=== PATIENT | female | born 1955 | race Caucasian/White ===

== ENCOUNTER 2016-09-01 12:46 | Emergency (ER) | payer SELFPAY ==
[2009-08-28 22:21] VITALS: BMI 28.5
[2016-09-01 14:23] LABS: BASOPHILS 0.5 % (0-2); EOSINOPHILS 3.4 % (0-7); HEMATOCRIT 41.7 % (36.0-48.0); HEMOGLOBIN 13.5 g/dL (12-16); IMMATURE GRANULOCYTES 0.2 % (0-5); LYMPHOCYTES 24.4 % (15-50); MCH 27.7 pg (26.0-34.0); MCHC 32.4 g/dL (31.0-37.0); MCV 85.5 fL (80.0-100.0); MEAN PLATELET VOLUME 11.5 fL (7.4-10.4); MONOCYTES 8.4 % (2-11); NEUTROPHILS 63.1 % (40-80); PLATELET COUNT 113 10x3/uL (130-400); RBC 4.88 10x6/uL (4.00-5.40); RDW 14.4 % (11.5-14.5); WBC 4.4 10x3/uL (4.8-10.8)
[2016-09-01 14:25] LABS: APPEARANCE CLEAR (CLEAR); BILIRUBIN NEGATIVE (NEGATIVE); COLOR YELLOW (YELLOW); GLUCOSE NEGATIVE (NEGATIVE); KETONE NEGATIVE (NEGATIVE); LEUKOCYTE ESTERASE NEGATIVE (NEGATIVE); NITRITE NEGATIVE (NEGATIVE); PROTEIN NEGATIVE (NEGATIVE); SPECIFIC GRAVITY 1.015 (1.005-1.020); UROBILINOGEN NORMAL (NORMAL)
[2016-09-01 14:46] LABS: ALBUMIN 3.3 g/dL (3.4-5.0); ANION GAP 12.3 mmol/L (8-16); BILIRUBIN - TOTAL 0.86 mg/dL (0.2-1.3); CALCIUM 8.8 mg/dL (8.5-10.1); CARBON DIOXIDE 26.2 mmol/L (21.0-32.0); POTASSIUM - SERUM 4.5 mmol/L (3.5-5.1); PROTEIN - SERUM 6.7 g/dL (6.4-8.2)
== END 2016-09-01 18:00 | disposition home or self-care (01) ==
LOC: D.ER 12:46
PROVIDERS: Emergency Medicine
DX: K59.00 Constipation, unspecified (principal); K21.9 Gastro-esophageal reflux disease without esophagitis; I10 Essential (primary) hypertension; F32.9 Major depressive disorder, single episode, unspecified; G47.00 Insomnia, unspecified; J44.9 Chronic obstructive pulmonary disease, unspecified

== ENCOUNTER 2017-04-16 10:15 | Day surgery (SDC) | payer MEDICAID ==
[~2017-04-16] VITALS: Ht 172.7 cm; Wt 121.8 kg
[2017-04-16 11:15] LABS: BASOPHILS 0.4 % (0-2); EOSINOPHILS 1.5 % (0-7); HEMATOCRIT 44.5 % (36.0-48.0); HEMOGLOBIN 15.3 g/dL (12-16); IMMATURE GRANULOCYTES 0.2 % (0-5); LYMPHOCYTES 19.8 % (15-50); MCH 28.6 pg (26.0-34.0); MCHC 34.4 g/dL (31.0-37.0); MCV 83.2 fL (80.0-100.0); MEAN PLATELET VOLUME 11.9 fL (7.4-10.4); MONOCYTES 10.5 % (2-11); NEUTROPHILS 67.6 % (40-80); PLATELET COUNT 104 10x3/uL (130-400); RBC 5.35 10x6/uL (4.00-5.40); RDW 14.1 % (11.5-14.5); WBC 4.7 10x3/uL (4.8-10.8)
[2017-04-16 11:24] LABS: APTT 31.6 SECONDS (22.8-39.4); INR 1.25 (0.85-1.17); PROTIME 15.3 SECONDS (11.6-15.0)
[2017-04-16 11:26] LABS: ALBUMIN 3.9 g/dL (3.4-5.0); ALKALINE PHOSPHATASE 83 U/L (46-116); ALT (SGPT) 26 U/L (10-68); BILIRUBIN - TOTAL 1.79 mg/dL (0.2-1.3); CALC OSMOLALITY 269 mosm/kg (275-300); CALCIUM 9.7 mg/dL (8.5-10.1); CARBON DIOXIDE 20.6 mmol/L (21.0-32.0); CHLORIDE - SERUM 102 mmol/L (98-107); CREATININE - SERUM 0.7 mg/dL (0.6-1.3); GLUCOSE 107 mg/dL (74-106); POTASSIUM - SERUM 4.4 mmol/L (3.5-5.1); PROTEIN - SERUM 7.5 g/dL (6.4-8.2); SODIUM 136 mmol/L (136-145); UREA NITROGEN 7 mg/dL (7-18); eGFR NON AFRICAN AMERICAN 90 mL/min (90-120)
[2017-04-16] MEDS ORDERED: METOPROLOL TART25 MG PO (11:50)
[2017-04-16] MEDS ORDERED: PRINIVIL20 MG PO (11:50)
[2017-04-16] MEDS ORDERED: ALDACTONE25 MG PO (11:50)
[2017-04-16] MEDS ORDERED: ATIVAN1 MG PO (11:50)
[2017-04-16] MEDS ORDERED: CELEXA10 MG PO (11:51)
[2017-04-16 11:56] VITALS: BP 128/80; Ht 172.7 cm; Wt 121.8 kg
--- NOTE | 2017-04-26 10:48 | OP ---
PATIENT NAME: ELIZABETH DENTON MEDICAL RECORD: [id number] :57 LOCATION:[facility] ADMISSION DATE: SURGEON: QING ADDISON DO DATE OF OPERATION: 04/16/2017 PROCEDURE: Colonoscopy with biopsy and polypectomy. INDICATIONS FOR PROCEDURE: Lower abdominal pain, diarrhea, and nausea. SCOPE: [employer] video pediatric colonoscope. MEDICATIONS: Propofol 500 mg IV per anesthesia. WITHDRAWAL TIME: 16 minutes. ESTIMATED BLOOD LOSS: Less than 3 mL. COMPLICATIONS: None. FINDINGS: Informed consent was given. The patient was made comfortable with the above medication. After reaching an adequate level of sedation by slow IV push, the patient was placed on her left side. A digital rectal examination was performed and was normal. The endoscope was then advanced under direct visualization through the rectum to the terminal ileum. The scope was slowly withdrawn and mucosa was carefully examined. The prep quality was good. The terminal ileum appeared normal, without evidence of inflammation or ulcerations. In the cecum, there were some hemorrhagic and friable mucosa. Appearances could be consistent with vascular ectasias or barotrauma. The patient does have known platelets and this could contribute to this appearance as well. Biopsies were taken with cold forceps of the site to submit for histopathology. In the transverse colon, there was a single benign appearing sessile polyp, which measured approximately 3-4 mm in diameter. It was removed using hot forceps in 1 piece and completely retrieved. In the rectum, there was another patch of friable and hemorrhagic appearing mucosa which was biopsied with cold forceps to submit for histopathology. There were a few scattered diverticula present throughout the entire colon. There was no evidence of diverticulitis. Random biopsies were taken throughout the colon and stool was collected to submit for infectious workup. The endoscope was retroflexed in the rectum with a normal appearing rectal wall. The endoscope was withdrawn from the patient. The patient tolerated the procedure well and there were no complications. IMPRESSION: 1. Patches of friable and hemorrhagic mucosa in both the cecum and rectum with biopsies pending. 2. Single benign appearing sessile polyp in the transverse colon which has been removed with hot forceps. 3. Mild diverticulosis involving the entire colon without evidence of diverticulitis. PLAN AND RECOMMENDATIONS: 1. Discharge home when recovery parameters are met. 2. Follow up biopsy specimen results and infectious workup. 3. High fiber diet. 4. Continue current medications. 5. Trial of dicyclomine 20 mg b.i.d. p.r.n. abdominal pain or loose stools. OPERATIVE REPORT [id number] ELIZABETH DENTON 6. Consider Viberzi if biopsies and infectious workup are negative, if the patient continues to experience diarrhea. 7. Recall colonoscopy in 5 years. TRANSINT:[id number] Voice Confirmation ID: [id number] DOCUMENT ID: [id number] QING ADDISON DO at 1048 CC: [id number] DICTATION DATE: 04/16/17 1334 PUBLIC RELATIONS: 04/16/17 1416 [facility] 04/16/17 [id number] [place] [address]
== END 2017-04-16 14:24 | disposition home or self-care (01) ==
LOC: D.OPS 10:15
PROVIDERS: Anesthesiology
DX: R19.7 Diarrhea, unspecified (principal); R10.9 Unspecified abdominal pain; D12.3 Benign neoplasm of transverse colon; I10 Essential (primary) hypertension; J44.9 Chronic obstructive pulmonary disease, unspecified; B19.20 Unspecified viral hepatitis C without hepatic coma; E66.01 Morbid (severe) obesity due to excess calories; Z68.41 Body mass index [BMI] 40.0-44.9, adult; Z01.812 Encounter for preprocedural laboratory examination

== ENCOUNTER 2018-03-06 07:17 | Day surgery (SDC) | payer MEDICAID ==
[~2018-03-06] VITALS: Ht 172.7 cm; Wt 122.7 kg
--- NOTE | ~2018-03-06 | OP ---
PATIENT NAME: ELIZABETH DENTON MEDICAL RECORD: [id number] :57 [facility] AD[facility]ION DATE: SURGEON: QING ADDISON DO DATE OF OPERATION: 03/06/2018 PROCEDURE: EGD with biopsies. INDICATIONS FOR PROCEDURE: GERD, nausea, generalized abdominal pain. SCOPE: [employer] video gastroscope. MEDICATIONS: Propofol 250 mg IV per anesthesia. ESTIMATED BLOOD LOSS: Minimal. COMPLICATIONS: None. FINDINGS: Informed consent was given. The patient was made comfortable with the above medication. After reaching an adequate level of sedation by slow IV push, the patient was placed on her left side. The endoscope was advanced under direct visualization through the mouth to the second portion of the duodenum. The upper, middle, and lower thirds of the esophagus appeared normal. At the GE junction, there was evidence of mild, LA class A reflux-induced esophagitis. The endoscope was advanced beyond the GE junction into the stomach and retroflexed to view the cardia, where a xmeni-wp-adrezb size sliding type hiatal hernia was present. There were no associated ulcers or other findings with this hernia. The endoscope was advanced throughout the body of the stomach and down to the antrum and prepyloric regions where there was some streaky erythema and granularity within the antrum and prepyloric areas. Random biopsies were taken to submit for histopathology and to rule out the presence of H. pylori. The endoscope was advanced into the duodenum. There was some villous flattening within the duodenal bulb, which did not appear out of the ordinary. Some biopsies were taken with cold forceps to submit for histology. The first and second portion of the duodenum appeared normal. The endoscope was withdrawn from the patient. The patient tolerated the procedure well and there were no complications. IMPRESSION: 1. LA class A reflux-induced esophagitis. 2. Jvqet-rk-dgqhxs size sliding hiatal hernia. 3. Erythema and granularity of the antrum and prepyloric region of the stomach consistent with possible gastritis. Biopsies pending. PLAN AND RECOMMENDATIONS: 1. Discharge home when recovery parameters are met. 2. GERD diet and reflux precautions. 3. Continue current medications including Nexium 40 mg every morning. 4. Add Pepcid 40 mg in the evening to regimen for better around the clock coverage including nighttime. 5. If this regimen is not controlling reflux and the patient continues to have nighttime symptoms, consider surgical repair of hiatal hernia. TRANSINT:[id number] Voice Confirmation ID: [id number] DOCUMENT ID: [id number] OPERATIVE REPORT [id number] ELIZABETH DENTON NATHAN A DO at 1403 CC: [id number] DICTATION DATE: 03/06/18 0850 [employer] HELPER: 03/06/18 1048 [facility] 03/06/[address] [address]
[~2018-03-06 07:17] MED LIST: ALDACTONE25 MG PO; ATIVAN1 MG PO; CELEXA10 MG PO; METOPROLOL TART25 MG PO; PRINIVIL20 MG PO
[2018-03-06 07:51] LABS: HEMATOCRIT 39.7 % (36.0-48.0); HEMOGLOBIN 13.4 g/dL (12-16); MCH 29.2 pg (26.0-34.0); MCHC 33.8 g/dL (31.0-37.0); MCV 86.5 fL (80.0-100.0); MEAN PLATELET VOLUME 10.4 fL (7.4-10.4); RBC 4.59 10x6/uL (4.00-5.40); RDW 13.9 % (11.5-14.5); WBC 3.9 10x3/uL (4.8-10.8)
[2018-03-06] MEDS ORDERED: NEXIUM20 MG PO (08:05)
[2018-03-06 08:08] VITALS: BP 178/64; Ht 172.7 cm; Wt 122.7 kg
== END 2018-03-06 10:17 | disposition home or self-care (01) ==
LOC: D.OPS 07:17
PROVIDERS: Anesthesiology
DX: K21.0 Gastro-esophageal reflux disease with esophagitis (principal); K44.9 Diaphragmatic hernia without obstruction or gangrene; K29.80 Duodenitis without bleeding; K29.50 Unspecified chronic gastritis without bleeding; Z01.812 Encounter for preprocedural laboratory examination

== ENCOUNTER → 2018-07-12 08:00 | Outpatient (CLI) | payer MEDICAID ==
[~2018-07-12 08:00] MED LIST changes: +NEXIUM20 MG PO
== END | disposition home or self-care (01) ==
LOC: D.MAMMO 08:00
PROVIDERS: ATTEND Family Medicine Adult Medicine
DX: Z12.31 Encounter for screening mammogram for malignant neoplasm of breast (principal)

== ENCOUNTER → 2018-08-16 22:06 | Outpatient (CLI) | payer MEDICAID | END | disposition home or self-care (01) | LOC: D.MAMMO 10:00 | PROVIDERS: ATTEND Family Medicine Adult Medicine | DX: N63.23 Unspecified lump in the left breast, lower outer quadrant (principal); N63.13 Unspecified lump in the right breast, lower outer quadrant ==

== ENCOUNTER 2019-05-26 13:09 | Inpatient (IN) | payer MEDICAID ==
[~2019-05-26] VITALS: Ht 175.3 cm; Wt 133.4 kg
[2019-05-26] MEDS ORDERED: SYMBICORT 80-10.2 GM INH (13:38)
--- NOTE | 2019-05-26 13:53 | NUR ---
ARRIVE TO ROOM VIA WHEELCHAIR FROM DOCTOR'S OFFICE ACCOMPANIED BY FAMILY. ALERT AND ORIENTED X4. AMBULATES TO BED WITH MINIMAL ASSISTANCE. VITALS STABLE. REFUSE SCDs. CONTINUE ADMISSION PROCESS AND SAFETY PRECAUTIONS.
[2019-05-26 14:35] VITALS: BP 128/78; BMI 43.5
[2019-05-26 15:38] LABS: BASOPHILS 0.2 % (0-2); EOSINOPHILS 2.1 % (0-7); HEMATOCRIT 29.6 % (36.0-48.0); HEMOGLOBIN 9.9 g/dL (12-16); IMMATURE GRANULOCYTES 0.2 % (0-5); LYMPHOCYTES 14.6 % (15-50); MCH 25.8 pg (26.0-34.0); MCHC 33.4 g/dL (31.0-37.0); MCV 77.3 fL (80.0-100.0); MEAN PLATELET VOLUME 9.8 fL (7.4-10.4); MONOCYTES 9.7 % (2-11); NEUTROPHILS 73.2 % (40-80); PLATELET COUNT 107 10x3/uL (130-400); RBC 3.83 10x6/uL (4.00-5.40); RDW 15.3 % (11.5-14.5); WBC 5.1 10x3/uL (4.8-10.8)
[2019-05-26 16:13] LABS: ALKALINE PHOSPHATASE 95 U/L (30-120); ALT (SGPT) 22 U/L (10-68); BILIRUBIN - TOTAL 1.18 mg/dL (0.2-1.3); CALC OSMOLALITY 237 mosm/kg (275-300); CALCIUM 7.9 mg/dL (8.5-10.1); CARBON DIOXIDE 22.2 mmol/L (21.0-32.0); CHLORIDE - SERUM 88 mmol/L (98-107); CHOL - HDL RATIO 1.4 ratio (2.3-4.1); CHOLESTEROL, TOTAL 101 mg/dL (0-200); CREATININE - SERUM 0.6 mg/dL (0.6-1.3); GLUCOSE 83 mg/dL (74-106); HDL CHOLESTEROL 72 mg/dL (32-96); LDL CHOLESTEROL 19 mg/dL (0-100); LDL-HDL RATIO 0.3 ratio (1.5-3.5); POTASSIUM - SERUM 4.2 mmol/L (3.5-5.1); PRO BNP 463 pg/mL (0-125); PROTEIN - SERUM 6.4 g/dL (6.4-8.2); THYROID STIMULATING HORMONE 1.76 uIU/mL (0.36-3.74); TRIGLYCERIDE 50 mg/dL (30-200); UREA NITROGEN 5 mg/dL (7-18); eGFR NON AFRICAN AMERICAN > 90 mL/min (90-120)
[2019-05-26 16:21] LABS: SODIUM 120 mmol/L (136-145)
[2019-05-26 16:51] VITALS: BP 128/78
--- NOTE | 2019-05-26 19:22 | NUR ---
AWAKE AND ALERT NEEDS SEEN TO LCTA BED LOW AND LOCKED RESP UNLABORED CALL LIGHT IS WITH PT
[2019-05-26 20:00] VITALS: BP 129/54
[2019-05-26 23:00] VITALS: BP 122/56
--- NOTE | 2019-05-27 01:48 | NUR ---
RT ARM OBVIOUSLY SWOLLEN IV INFILTRATED IV REMOVED CATH INTACT
[2019-05-27 04:30] VITALS: BP 129/58
[2019-05-27 06:40] LABS: BASOPHILS 0.2 % (0-2); EOSINOPHILS 1.4 % (0-7); HEMATOCRIT 30.3 % (36.0-48.0); HEMOGLOBIN 10.1 g/dL (12-16); IMMATURE GRANULOCYTES 0.5 % (0-5); LYMPHOCYTES 11.7 % (15-50); MCH 25.8 pg (26.0-34.0); MCHC 33.3 g/dL (31.0-37.0); MCV 77.3 fL (80.0-100.0); MEAN PLATELET VOLUME 10.6 fL (7.4-10.4); NEUTROPHILS 73.2 % (40-80); PLATELET COUNT 100 10x3/uL (130-400); RBC 3.92 10x6/uL (4.00-5.40); RDW 15.8 % (11.5-14.5); WBC 4.4 10x3/uL (4.8-10.8)
--- NOTE | 2019-05-27 06:52 | NUR ---
RESTARTED IV TO LEFT FA WITH 22 BLU
[2019-05-27 06:58] LABS: CALC OSMOLALITY 247 mosm/kg (275-300); CALCIUM 7.7 mg/dL (8.5-10.1); CHLORIDE - SERUM 91 mmol/L (98-107); CREATININE - SERUM 0.7 mg/dL (0.6-1.3); GLUCOSE 98 mg/dL (74-106); POTASSIUM - SERUM 4.6 mmol/L (3.5-5.1); SODIUM 124 mmol/L (136-145); UREA NITROGEN 6 mg/dL (7-18); eGFR NON AFRICAN AMERICAN 90 mL/min (90-120)
--- NOTE | 2019-05-27 07:20 | NUR ---
RECIEVE REPORT. ALERT AND ORIENTED X4. SITTING UP ON SIDE OF BED. IV INFUSING ORDERED. DENIES ANY NEEDS AT THIS TIME. CONTINUE PLAN OF CARE AND SAFETY PRECAUTIONS.
[2019-05-27 08:32] VITALS: BP 115/53
[2019-05-27 13:01] VITALS: BP 129/78
[2019-05-27 13:39] VITALS: Ht 175.3 cm; Wt 133.4 kg
--- NOTE | 2019-05-27 15:21 | NUR ---
TAKEN TO CTA VIA WHEELCHAIR.
[2019-05-27 16:53] VITALS: BP 137/65
--- NOTE | 2019-05-27 19:12 | NUR ---
PT AWAKE AND DENIES NEEDS AT THIS TIME BED LOW AND LOCKED PT HAS CALL LIGHT
[2019-05-27 19:27] LABS: UDS - AMPHET NEGATIVE QUAL (NEGATIVE); UDS - BARB NEGATIVE QUAL (NEGATIVE); UDS - BENZO NEGATIVE QUAL (NEGATIVE); UDS - COCAINE NEGATIVE QUAL (NEGATIVE); UDS - OPIATE NEGATIVE QUAL (NEGATIVE); UDS - PCP NEGATIVE QUAL (NEGATIVE); UDS - THC NEGATIVE QUAL (NEGATIVE)
--- NOTE | 2019-05-27 19:46 | NUR ---
PULSE OX 88 APPLIED 2LNC TO ACHEIVE 94%
[2019-05-27 20:00] VITALS: BP 124/50
[2019-05-28] VITALS: BP 119/64
--- NOTE | 2019-05-28 01:13 | NUR ---
I have reviewed this patient and I concur with the Shift Assessment completed by the Licensed Practical Nurse today this shift.
[2019-05-28 04:00] VITALS: BP 142/65
[2019-05-28 07:58] LABS: CALCIUM 7.7 mg/dL (8.5-10.1); CARBON DIOXIDE 23.6 mmol/L (21.0-32.0); CHLORIDE - SERUM 98 mmol/L (98-107); GLUCOSE 97 mg/dL (74-106); POTASSIUM - SERUM 5.1 mmol/L (3.5-5.1); SODIUM 129 mmol/L (136-145)
[2019-05-28 08:02] LABS: BASOPHILS 0.3 % (0-2); EOSINOPHILS 1.9 % (0-7); HEMATOCRIT 28.1 % (36.0-48.0); HEMOGLOBIN 9.1 g/dL (12-16); IMMATURE GRANULOCYTES 0.6 % (0-5); LYMPHOCYTES 18.8 % (15-50); MCH 25.9 pg (26.0-34.0); MCHC 32.4 g/dL (31.0-37.0); MEAN PLATELET VOLUME 10.4 fL (7.4-10.4); MONOCYTES 13.2 % (2-11); NEUTROPHILS 65.2 % (40-80); RBC 3.52 10x6/uL (4.00-5.40); RDW 16.3 % (11.5-14.5)
[2019-05-28 08:05] LABS: CALC OSMOLALITY 255 mosm/kg (275-300); CREATININE - SERUM 0.4 mg/dL (0.6-1.3); UREA NITROGEN 4 mg/dL (7-18); eGFR NON AFRICAN AMERICAN > 90 mL/min (90-120)
[2019-05-28 08:14] LABS: MCV 79.8 fL (80.0-100.0); PLATELET COUNT 68 10x3/uL (130-400); WBC 3.2 10x3/uL (4.8-10.8)
[2019-05-28 08:27] LABS: % SATURATION 7 % (15-55); IRON 27 ug/dl (35-150); TOTAL IRON BIND CAPACITY 373 ug/dl (260-445); UNSAT IRON BIND CAPACITY 346 ug/dl (150-375)
--- NOTE | 2019-05-28 08:47 | NUR ---
HOME O2 WALK TEST: AT REST PATIENT DROPPED TO 87%, PLACED ON 2L O2 AND PATIENT RECOVERED TO 94%. DID NOT WALK DUE TO PATIENT DROPPING BELOW THE LIMIT.
--- NOTE | 2019-05-28 09:30 | NUR ---
PT LYING IN BED WITH HOB ELEVATED. O2 AT 2.5L VIA NC. EYES CLOSED. CHEST RISING AND FALLING. BED LOW. CL IN REACH. WILL CONTINUE WITH PLAN OF CARE.
[2019-05-28 09:53] VITALS: BP 132/55
--- NOTE | 2019-05-28 11:23 | NUR ---
I have reviewed this patient and I concur with the Shift Assessment completed by the Licensed Practical Nurse today this shift.
[2019-05-28 11:33] LABS: PLATELET ESTIMATE DECREASED; ROULEAUX OCC
[2019-05-28 11:34] LABS: ANISOCYTOSIS OCC
--- NOTE | 2019-05-28 11:37 | NUR ---
Rehab Note- Acute Inpatient Rehab prescreen order received. The patient has [place] Private [employer] insurance and will require a PreAuth prior to an acute inpatient rehab stay. Need an OT Eval for the PreAUth process. Will continue to follow at this time. Thank you for this referral! Lois Palomino RN Clinical Liaison, [facility] Rehab
[2019-05-28] MEDS ORDERED: THERMOTABS 1 GM1 GM PO (13:08)
--- NOTE | 2019-05-28 13:15 | MORECARE ---
CASE MANAGEMENT DISCHARGE SUMMARY PATIENT: ELIZABETH DENTON UNIT: [id number] ADM DATE: 05/26/19 AGE: 64 : 57 SEX: F ROOM/BED: D.3422 AUTHOR: AURELIA,DOC PHYSICIAN: REFERRING PHYSICIAN: BELINDA GUEVARA MD DATE OF SERVICE: 05/28/19 Discharge Plan Patient Name: ELIZABETH EDNTON Facility: [facility]:[place] : 1955 Planned Disposition: Home with Home Health Anticipated Discharge Date: 05/28/19 Discharge Date: Expected LOS: 2 Initial Reviewer: [email or web address] Initial Review Date: 05/28/2019 Generated: 05/28/19 2:15 pm Comments DCP- Discharge Planning Updated by [email or web address]: Magdaleno Devi on 05/28/19 12:[address] Patient Name: ELIZABETH DENTON Admission Status: Elective Accout number: [id number] Admission Date: 05-26-2019 : 1955 Admission Diagnosis: Attending: BELINDA HITCHCOCK Current LOS: 2 Anticipated DC Date: 05-28-2019 Planned Disposition: Home with Home Health Primary Insurance: [facility] PRIVATE OPTIONS [facility] PLANNED EXTERNAL PROVIDER: [facility] Discharge Planning Comments: CM RECEIVED ORDER FOR INPATIENT REHAB PRESCEENING AND OXYGEN TESTING. CM RECEIVED OXYGEN TESTING, PT 87% ON ROOM AIR, 94% RECOVERY ON 2LNC OXYGEN. CM MET WITH PT IN ROOM TO DISCUSS DISCHARGE PLANNING AND NEEDS. PT REPORTS LIVING AT HOME INDEPENDENTLY WITH HER ADULT NIECE. PT HAS NO MEDICAL EQUIPMENT AND NO OUTSIDE SERVICES ASSISTING IN THE HOME. CM DISCUSSED AVAILABILITY OF HOME HEALTH, REHAB SERVICES AND MEDICAL EQUIPMENT. PT DENIES NEED OF REHAB SERVICES IN FACILITY, PT WILL ACCEPT HOME HEALTH WITH NO PROVIDER PREFERENCE. PT HAS NO PREFERENCE ON MEDICAL EQUIPMENT PROVIDER FOR OXYGEN. PT DENIES FURTHER NEEDS, REPORTS HER NIECE WILL PICK HER UP FOR DISCHARGE HOME. OXYGEN AND HOME HEALTH TO BE ARRANGED BY CM SHORTLY. Mechanical Development Engineer: Magdaleno Devi DCPIA - Discharge Planning Initial Assessment Updated by [email or web address]: Magdaleno Devi on 05/28/19 1:14 pm * Is the patient Alert and Oriented? Yes * How many steps to enter\exit or inside your home? * PCP DR GUEVARA * Pharmacy [facility] * Preadmission Environment Home with Family * ADLs Independent * Equipment None * Other Equipment NO MEDICAL EQUIPMENT PROVIDER PREFERENCE * List name and contact numbers for known caregivers / representatives who currently or will assist patient after discharge: CARLA FARIA, * Verbal permission to speak to the caregivers and representatives has been obtained from the patient. N/A * Community resources currently utilized None * Please name any agencies selected above. NONE * Additional services required to return to the preadmission environment? No * Can the patient safely return to the preadmission environment? Yes * Has this patient been hospitalized within the prior 30 days at any hospital? Yes External Providers External Provider: [facility] Next Contact Date: Service Request Date: Service Type: Resolution: Reviewer: Comments: External Provider: Manuel Next Contact Date: Service Request Date: Service Type: Resolution: Reviewer: Comments: Coverage Notice Reviewer: [email or web address] Leonel Devi Notice Issued Date-Time: 05/28/2019 10:02 Notice Type: Patient Choice Letter Notice Delivered To: Patient Relationship to Patient: Golf Cart Assembler Name: Delivery Method: HAND - Hand Delivered Vilma Days: Prior Verbal Notification: Recipient Understood Notice: Yes Recipient Signature: Yes Med Rec Note Co-signed by Attending: Coverage Notice Comment: NO MEDICAL EQUIPMENT PROVIDER PREFERENCE NO HOME HEALTH PROVIDER PREFERENCE Patient Name: ELIZABETH DENTON Page [phone] at 1315 All edits/amendments must be made on the electronic document DICTATION DATE: 05/28/19 1315 QUALITY CONTROL EXPERT: YORDY 05/28/19 1315 RPT#: [id number] DC DATE: STATUS: ADM IN [facility] [address] [place] [address] END OF REPORT
--- NOTE | 2019-05-28 15:24 | NUR ---
SPOKE WITH PTArina HORNE AND SHE STATES SHE WON'T BE ABLE TO PICK PT UP TILL 1700. I VERBALIZED UNDERSTANDING.
--- NOTE | 2019-05-28 17:06 | MORECARE ---
CASE MANAGEMENT DISCHARGE SUMMARY PATIENT: ELIZABETH DENTON UNIT: [id number] ADM DATE: 05/26/19 AGE: 64 : 57 SEX: F ROOM/BED: D.2102 AUTHOR: AURELIA,DOC PHYSICIAN: REFERRING PHYSICIAN: BELINDA GUEVARA MD DATE OF SERVICE: 05/28/19 Discharge Plan Patient Name: ELIZABETH DENTON Facility: [facility]:[place] : 1955 Planned Disposition: Home with Home Health Anticipated Discharge Date: 05/28/19 Discharge Date: Expected LOS: 2 Initial Reviewer: [email or web address] Initial Review Date: 05/28/2019 Generated: 05/28/19 6:05 pm Comments DCP- Discharge Planning Updated by [email or web address]: Amee Mario on 05/28/19 4:[address] CM met with patient to discuss H/H and oxygen therapy. . CM discussed availability of home health, rehab services, and medical equipment. Pt agreeable to [facility], and [facility]. Referrals made. Will continue to follow. Amee Mario MSN,RN CM DCP- Discharge Planning Updated by [email or web address]: Magdaleno Devi on 05/28/19 12:[address] Patient Name: ELIZABETH DENTON Admission Status: Elective Accout number: [id number] Admission Date: 05-26-2019 : 1955 Admission Diagnosis: Attending: BELINDA HITCHCOCK Current LOS: 2 Anticipated DC Date: 05-28-2019 Planned Disposition: Home with Home Health Primary Insurance: [place] PRIVATE OPTIONS [facility] PLANNED EXTERNAL PROVIDER: [employer] [facility] Discharge Planning Comments: CM RECEIVED ORDER FOR INPATIENT REHAB PRESCEENING AND OXYGEN TESTING. CM RECEIVED OXYGEN TESTING, PT 87% ON ROOM AIR, 94% RECOVERY ON 2LNC OXYGEN. CM MET WITH PT IN ROOM TO DISCUSS DISCHARGE PLANNING AND NEEDS. PT REPORTS LIVING AT HOME INDEPENDENTLY WITH HER ADULT NIECE. PT HAS NO MEDICAL EQUIPMENT AND NO OUTSIDE SERVICES ASSISTING IN THE HOME. CM DISCUSSED AVAILABILITY OF HOME HEALTH, REHAB SERVICES AND MEDICAL EQUIPMENT. PT DENIES NEED OF REHAB SERVICES IN FACILITY, PT WILL ACCEPT HOME HEALTH WITH NO PROVIDER PREFERENCE. PT HAS NO PREFERENCE ON MEDICAL EQUIPMENT PROVIDER FOR OXYGEN. PT DENIES FURTHER NEEDS, REPORTS HER NIECE WILL PICK HER UP FOR DISCHARGE HOME. OXYGEN AND HOME HEALTH TO BE ARRANGED BY CM SHORTLY. Char Filter Tank Tender Head: Magdaleno Devi DCPIA - Discharge Planning Initial Assessment Updated by [id number]: Magdaleno Devi on 05/28/19 1:14 pm * Is the patient Alert and Oriented? Yes * How many steps to enter\exit or inside your home? * PCP DR GUEVARA * Pharmacy [facility] * Preadmission Environment Home with Family * ADLs Independent * Equipment None * Other Equipment NO MEDICAL EQUIPMENT PROVIDER PREFERENCE * List name and contact numbers for known caregivers / representatives who currently or will assist patient after discharge: ERICK VELÁZQUEZ, CARLA, * Verbal permission to speak to the caregivers and representatives has been obtained from the patient. N/A * Community resources currently utilized None * Please name any agencies selected above. NONE * Additional services required to return to the preadmission environment? No * Can the patient safely return to the preadmission environment? Yes * Has this patient been hospitalized within the prior 30 days at any hospital? Yes Coverage Notice Reviewer: [id number] - Magdaleno Devi Notice Issued Date-Time: 05/28/2019 10:02 Notice Type: Patient Choice Letter Notice Delivered To: Patient Relationship to Patient: Account Technician Name: Delivery Method: HAND - Hand Delivered Vilma Days: Prior Verbal Notification: Recipient Understood Notice: Yes Recipient Signature: Yes Med Rec Note Co-signed by Attending: Coverage Notice Comment: NO MEDICAL EQUIPMENT PROVIDER PREFERENCE NO HOME HEALTH PROVIDER PREFERENCE Last DP export: 05/28/19 12:15 p Patient Name: ELIZABETH DENTON Page [phone] at 1706 All edits/amendments must be made on the electronic document DICTATION DATE: 05/28/19 170 PHARMACEUTICAL ENGINEER: YORDY 05/28/19 170 RPT#: [id number] DC DATE: STATUS: ADM IN [facility] [address] [place] [address] END OF REPORT
--- NOTE | 2019-05-28 18:27 | NUR ---
LEFT FA AND LEFT AC IV DC'D WITH CATH INTACT. DISCHARGE INSTRUCTIONS GIVEN TO PT AND PT'S DAUGHTER. NEITHER PT OR DAUGHTER HAD ANY FURTHER QUESTIONS. PT SIGNED CHART COPY. WILL GET WC TO TAKE PT DOWN.
--- NOTE | 2019-05-28 18:35 | NUR ---
PT TAKEN DOWN VIA WC AND LEFT WITH DAUGHTER IN PERSONAL CAR.
== END 2019-05-28 18:36 | disposition home or self-care (01) | DRG 189 ==
LOC: D.M2 13:09
PROVIDERS: Family Medicine; ADMIT Family Medicine Adult Medicine; ATTEND Family Medicine Adult Medicine
DX: J96.01 Acute respiratory failure with hypoxia (principal); Z68.41 Body mass index [BMI] 40.0-44.9, adult; E87.1 Hypo-osmolality and hyponatremia; N17.9 Acute kidney failure, unspecified; I10 Essential (primary) hypertension; E78.5 Hyperlipidemia, unspecified; J44.9 Chronic obstructive pulmonary disease, unspecified; F41.8 Other specified anxiety disorders; G40.909 Epilepsy, unspecified, not intractable, without status epilepticus; B19.20 Unspecified viral hepatitis C without hepatic coma; Z72.89 Other problems related to lifestyle; E66.01 Morbid (severe) obesity due to excess calories; D64.9 Anemia, unspecified

== ENCOUNTER 2019-08-28 16:23 | Inpatient (IN) | payer BC ==
[~2019-08-28] VITALS: Ht 175.3 cm; Wt 122.5 kg
[~2019-08-28 16:23] MED LIST changes: +SYMBICORT 80-10.2 GM INH; +THERMOTABS 1 GM1 GM PO
[2019-08-28] MEDS ORDERED: LASIX80 MG PO (17:04)
[2019-08-28] MEDS ORDERED: CHRONULAC30 ML PO (17:05)
[2019-08-28] MEDS ORDERED: PATOWN PO (17:11)
[2019-08-28] MEDS ORDERED: K-TAB10 MEQ PO (17:13)
[2019-08-28] MEDS ORDERED: ZOFRAN4 MG PO ×2 (17:14→17:15)
[2019-08-28] MEDS ORDERED: XIFAXAN550 MG PO (17:14)
[2019-08-28 17:52] VITALS: BP 112/68; BMI 39.9
--- NOTE | 2019-08-28 17:59 | NUR ---
PT RESTING IN BED WITH EYES OPEN CALL LIGHT IN REACH NO PROBLEMS WILL MONITERS
[2019-08-28 20:00] VITALS: BP 135/78
--- NOTE | 2019-08-28 20:40 | NUR ---
ASSESSMENT COMPLETED. SEE NURSING FLOW SHEET. ALERT AND ORIENTED. NO C/O VOICED. MEDS ADMINSITERED PER ORDERS WITHOUT DIFFICULTY. ASSISTED TO BATHROOM HOWEVER WAS INCONTINENT. ASSISTED BACK TO BED. SPRITE BROUGHT TO PATIEMT. CALL LIGHT WITHIN REACH AND AND BED IN LOW POSITION.
--- NOTE | 2019-08-28 21:38 | NUR ---
DR CALDERA NOTIFIED OF PT's BEHAVIOR AND ASSESSMENT RESULTS. PT IS A LOW RISK PER DR CALDERA. DR CALDERA STATED TO GIVE RESOURCES TO PATIENT AT TIME OF DISCHARGE. NO FURTHER ORDERS AT THIS TIME. RESOURCES REVIEWED WITH PT AND SHE VERBALIZED UNDERSTANDING.
--- NOTE | 2019-08-29 01:30 | NUR ---
PATIENT INCONTINENT OF URINE. GOWN AND PAD CHANGED. WAS INCONTINENT AGAIN BEFORE NURSE LEFT THE ROOM. CHANGED WITH TOP LINENS CHANGED.
--- NOTE | 2019-08-29 05:51 | NUR ---
AM MEDS ADMINISTERED WITHOUT DIFFICULTY. AMBULATED TO THE BATHROOM WITH ASSIST OF WALKER.
[2019-08-29 08:57] VITALS: BP 150/74
[2019-08-29 09:37] LABS: BASOPHILS 0.4 % (0-2); EOSINOPHILS 1.9 % (0-7); HEMATOCRIT 40.2 % (36.0-48.0); HEMOGLOBIN 12.3 g/dL (12-16); LYMPHOCYTES 28.4 % (15-50); MCH 26.5 pg (26.0-34.0); MCHC 30.6 g/dL (31.0-37.0); MCV 86.5 fL (80.0-100.0); MEAN PLATELET VOLUME 9.4 fL (7.4-10.4); MONOCYTES 16.3 % (2-11); PLATELET COUNT 71 10x3/uL (130-400); RBC 4.65 10x6/uL (4.00-5.40); RDW 16.1 % (11.5-14.5); WBC 4.9 10x3/uL (4.8-10.8)
[2019-08-29 10:20] LABS: ANION GAP 8.6 mmol/L (8-16); CARBON DIOXIDE 32.4 mmol/L (21.0-32.0); CREATININE - SERUM 0.9 mg/dL (0.6-1.3)
--- NOTE | 2019-08-29 11:48 | NUR ---
PT HAD AN INCONTIENT EPISODE OF URINE AT THIS TIME. PT C/O OF ITCHING AND BURNING TO GROIN AREA. REDNESS NOTED TO AREA. WILL OBTAIN ORDER FOR MEDICATION TO ASSIST WITH ITCHING.
[2019-08-29 13:44] VITALS: Ht 175.3 cm; Wt 122.5 kg
--- NOTE | 2019-08-29 14:05 | NUR ---
PATIENT ADMITTED TO REHAB FROM [facility] IN . DISCHARGE PLANS ARE FOR PATIENT TO RETURN HOME WITH FAMILY. WILL CONTINUE TO FOLLOW WITH PATIENT AND ASSIT WITH NEEDS.
--- NOTE | 2019-08-29 16:59 | NUR ---
N/O: ORDER PUT IN FOR CALMOSEPTINE OINTMENT. WILL ADMINISTER.
--- NOTE | 2019-08-29 19:59 | NUR ---
AWAKE AND ALERT. RESPIRATIONS UNLABORED ON O2/2L PER NASAL CANNULA. IN RESPIRATORY ISOLATION. PEG TUBE NOT IN USE. NO ACUTE DISTRESS NOTED. CALL LIGHT IN REACH.
[2019-08-29 20:04] VITALS: BP 107/58
--- NOTE | 2019-08-30 01:38 | NUR ---
RESTING IN BED. REQUESTED BLANKET. REPOSITIONED FOR COMFORT.
--- NOTE | 2019-08-30 05:18 | NUR ---
RESTING IN BED. NO BM'S THIS SHIFT. REMAINS IN DROPLET ISOLATION. NO ACUTE CHANGES IN CONDITION. O2/2L ON PER NASAL CANNULA. CALL LIGHT IN REACH.
--- NOTE | 2019-08-30 08:23 | NUR ---
PT EATING BREAKFAST IN THERAPY GYM TOLERATING WELL WILL MONITER
[2019-08-30 10:30] VITALS: BP 109/72
--- NOTE | 2019-08-30 11:00 | NUR ---
I have reviewed this patient and I concur with the Shift Assessment completed by the Licensed Practical Nurse today this shift.
--- NOTE | 2019-08-30 11:00 | NUR ---
I have reviewed this patient and I concur with the Shift Assessment completed by the Licensed Practical Nurse today this shift.
--- NOTE | 2019-08-30 17:53 | NUR ---
PT RESTING IN BED WITH EYES OPEN CALL LIGHT IN REACH WILL MONITER
--- NOTE | 2019-08-30 19:34 | NUR ---
AWAKE AND ALERT. SITTING ON SIDE OF BED. O2/2L ON PER NASAL CANNULA. NOTED SHORTNESS OF BREATH WITH EXERTION. HAD URGE INCONTINENCE EPISODE. GOWN AND BED LINENS CHANGED. CALL LIGHT IN REACH.
[2019-08-30 20:12] VITALS: BP 117/55
--- NOTE | 2019-08-31 01:44 | NUR ---
RESTING IN BED WITH RESPIRATIONS UNLABORED. NO DISTRESS NOTED. REMAINS IN DROPLET ISOLATION.
--- NOTE | 2019-08-31 06:22 | NUR ---
QUIET HOURS. NO ACUTE CHANGES IN CONDITION THIS SHIFT. REMAINS IN ISOLATION. CALL LIGHT IN REACH.
--- NOTE | 2019-08-31 07:23 | NUR ---
PT RESTING IN BED WITH EYES OPEN CALL LIGHT IN REACH WILL MONITER
[2019-08-31 08:11] VITALS: BP 103/61
--- NOTE | 2019-08-31 13:25 | NUR ---
I have reviewed this patient and I concur with the Shift Assessment completed by the Licensed Practical Nurse today this shift.
--- NOTE | 2019-08-31 18:25 | NUR ---
PT RESTING IN BED WITH EYES OPEN CALL LIGHT IN REACH NO PROBLEMS WILL MONITER
--- NOTE | 2019-08-31 19:39 | NUR ---
AWAKE AND ALERT. SITTING IN BED. O2/2L ON PER NASAL CANNULA. IN DROPLET ISOLATION . UP AD ELOY TO BATHROOM. CALL LIGHT IN REACH.
[2019-08-31 22:40] VITALS: BP 111/65
--- NOTE | 2019-09-01 05:19 | NUR ---
RESTING IN BED. QUIET HOURS. NO ACUTE CHANGES IN CONDITION THIS SHIFT. REMAINS IN DROPLET ISOLATION.
[2019-09-01 06:43] LABS: BASOPHILS 0.4 % (0-2); EOSINOPHILS 1.3 % (0-7); HEMATOCRIT 34.5 % (36.0-48.0); HEMOGLOBIN 10.4 g/dL (12-16); LYMPHOCYTES 29.8 % (15-50); MCH 25.7 pg (26.0-34.0); MCHC 30.1 g/dL (31.0-37.0); MCV 85.4 fL (80.0-100.0); MEAN PLATELET VOLUME 10.3 fL (7.4-10.4); MONOCYTES 11.7 % (2-11); NEUTROPHILS 56.8 % (40-80); PLATELET COUNT 81 10x3/uL (130-400); RBC 4.04 10x6/uL (4.00-5.40); RDW 15.9 % (11.5-14.5); WBC 4.6 10x3/uL (4.8-10.8)
[2019-09-01 07:00] LABS: ALBUMIN 2.3 g/dL (3.4-5.0); ALKALINE PHOSPHATASE 62 U/L (30-120); ALT (SGPT) 12 U/L (10-68); BILIRUBIN - TOTAL 1.43 mg/dL (0.2-1.3); CALC OSMOLALITY 270 mosm/kg (275-300); CALCIUM 8.2 mg/dL (8.5-10.1); CARBON DIOXIDE 32.8 mmol/L (21.0-32.0); CHLORIDE - SERUM 99 mmol/L (98-107); CREATININE - SERUM 0.7 mg/dL (0.6-1.3); GLUCOSE 92 mg/dL (74-106); POTASSIUM - SERUM 3.5 mmol/L (3.5-5.1); PROTEIN - SERUM 7.2 g/dL (6.4-8.2); SODIUM 136 mmol/L (136-145); UREA NITROGEN 9 mg/dL (7-18); eGFR NON AFRICAN AMERICAN 90 mL/min (90-120)
--- NOTE | 2019-09-01 07:00 | NUR ---
POSITIONED ON BACK WITH EYES CLOSED AND RESP EVEN AND UNLABORED WITH O2 ON PER NC AT 2 L/M. NO APPARENT PROBLEMS NOTED AT PRESENT TIME. SIDERAILS UP X 2, CALL LIGHT IN REACH AND BED IN LOW, LOCKED POSITION.
[2019-09-01 08:24] VITALS: BP 127/70
[2019-09-01 12:32] LABS: PLATELET ESTIMATE DECREASED
[2019-09-01 12:33] LABS: ANISOCYTOSIS OCC; HYPOCHROMASIA OCC
--- NOTE | 2019-09-01 17:45 | NUR ---
ASSISTED UP TO BATHROOM. LARGE LIQUID STOOL, PT CLEANED AND GOWNS CHANGED. CATARINA APPLIED TO EXCORIATED AREAS.
[2019-09-01 19:20] VITALS: BP 132/71
--- NOTE | 2019-09-01 21:33 | NUR ---
PT ASSISTED TO THE BATHROOM WITH SBA. NO FURTHER NEEDS VOICED.
--- NOTE | 2019-09-01 23:44 | NUR ---
I have reviewed this patient and I concur with the Shift Assessment completed by the Licensed Practical Nurse today this shift.
--- NOTE | 2019-09-02 03:29 | NUR ---
RESTING QUIETLY IN BED WITH EYES CLOSED.
--- NOTE | 2019-09-02 07:21 | NUR ---
POSITIONED ON BACK WITH EYES CLOSED, RESP EVEN AND UNLABORED WITH 02 ON PER N/C AT 2 L/M. NO APPARENT PROBLEMS NOTED. BED IN LOW, LOCKED POSITION, CALL LIGHT IN REACH AND SIDERAILS UP X 2. PT HAS SIGNED WAIVER FOR ALARM AND IS UP AD ELOY TO BATHROOM.
[2019-09-02 08:23] VITALS: BP 126/72
--- NOTE | 2019-09-02 18:52 | NUR ---
BEDSIDE REPORT COMPLETE. PT LYING IN BED. HOB ELEVATED. ALERT AND ORIENTED X4. DENIES ANY NEEDS OR PAIN. BED ALARM WAIVER ON FILE. PEG TUBE SITE WITHOUT REDNESS OR SWELLING. DRESSING C/D/I. CONTINUES ON 2L VIA NC. CONTACT ISOLATION PROTOCOLS IN PLACE. CALL LIGHT WITHIN REACH. FALL PRECAUTIONS IN PLACE. CPOC
[2019-09-02 21:00] VITALS: BP 115/64
--- NOTE | 2019-09-03 00:33 | NUR ---
PT LYING IN BED ON RIGHT SIDE EYES CLOSED RESTING. RR EVEN AND UNLABORED. CONTINUES ON 2L VIA NC. CALL LIGHT WITHIN REACH. FALL PRECAUTIONS IN PLACE. WILL CONTINUE TO MONITOR
--- NOTE | 2019-09-03 04:01 | NUR ---
PT LYING IN BED SUPINE EYES CLOSED RESTING COMFORTABLY. RR EVEN AND UNLABORED. CALL LIGHT WITHIN REACH. FALL PRECAUTIONS IN PLACE. CPOC
--- NOTE | 2019-09-03 07:34 | NUR ---
PT RESTING IN BED WIHT EYES OPEN CALL LIGHT IN REACH WILL MONITER
[2019-09-03 08:00] VITALS: BP 140/70
[2019-09-03 08:18] LABS: BASOPHILS 0.4 % (0-2); EOSINOPHILS 1.9 % (0-7); HEMATOCRIT 37.6 % (36.0-48.0); HEMOGLOBIN 11.4 g/dL (12-16); LYMPHOCYTES 32.8 % (15-50); MCHC 30.3 g/dL (31.0-37.0); MCV 85.8 fL (80.0-100.0); MEAN PLATELET VOLUME 9.7 fL (7.4-10.4); NEUTROPHILS 53.9 % (40-80); PLATELET COUNT 86 10x3/uL (130-400); RBC 4.38 10x6/uL (4.00-5.40); RDW 15.6 % (11.5-14.5); WBC 4.6 10x3/uL (4.8-10.8)
[2019-09-03 08:29] LABS: CALC OSMOLALITY 272 mosm/kg (275-300); CALCIUM 8.3 mg/dL (8.5-10.1); CARBON DIOXIDE 31.8 mmol/L (21.0-32.0); CHLORIDE - SERUM 100 mmol/L (98-107); CREATININE - SERUM 0.8 mg/dL (0.6-1.3); GLUCOSE 104 mg/dL (74-106); POTASSIUM - SERUM 3.2 mmol/L (3.5-5.1); SODIUM 137 mmol/L (136-145); UREA NITROGEN 9 mg/dL (7-18); eGFR NON AFRICAN AMERICAN 77 mL/min (90-120)
[2019-09-03 10:22] LABS: PLATELET ESTIMATE DECREASED; ROULEAUX OCC
[2019-09-03 10:23] LABS: HYPOCHROMASIA OCC
--- NOTE | 2019-09-03 15:02 | NUR ---
CARE TEAM MEETING: PATIENT DOING VERY WELL IN THERAPY AND DISCHARGE PLANS ARE FOR HER TO DC IN AM. WILL CONTINUE TO FOLLOW WITH PATIENT.
--- NOTE | 2019-09-03 18:39 | NUR ---
PT RESTING IN BED WITH EYES OPEN CALL LIGHT IN REACH NO PROBLEMS WILL MONITER
--- NOTE | 2019-09-03 19:19 | NUR ---
AWAKE AND ALERT. RESTING IN BED WITH RESPIRATIONS UNLABORED. IN DROPLET ISOLATION. NO ACUTE DISTRESS NOTED. CALL LIGHT IN REACH.
[2019-09-03 21:42] VITALS: BP 105/66
--- NOTE | 2019-09-04 00:23 | NUR ---
RESTING IN BED WITH RESPIRATIONS UNLABORED. NO DISTRESS NOTED. CALL LIGHT IN REACH.
--- NOTE | 2019-09-04 05:10 | NUR ---
QUIET HOURS. NO ACUTE CHANGES IN CONDITION THIS SHIFT. REMAINS IN DROPLET ISOLATION. RESTING IN BED WITH NO DISTRESS NOTED.
--- NOTE | 2019-09-04 07:15 | NUR ---
A/A/OX4. DENIES ANY PAIN OR DISCOMFORT AND VOICES NO REQUESTS. STATES SHE RESTED WELL LAST NIGHT AND IS EXCITED ABOUT BEING DISCHARGED TODAY. SIDERAILS UP X 2, CALL LIGHT IN REACH AND BED IN LOW, LOCKED POSITION. PT IS UP AD ELOY WITH HER WALKER AND HAS SIGNED NO ALARM WAIVER. WILL CONTINUE POC.
[2019-09-04 08:00] VITALS: BP 145/70
--- NOTE | 2019-09-04 08:47 | RHP ---
PATIENT: ELIZABETH DENTON MEDICAL RECORD: [id number] ACCOUNT: [id number] LOCATION:[id number] : 57 ADMISSION DATE: 08/28/19 REHABILITATION HISTORY AND PHYSICAL EXAMINATION POST ADMISSION PHYSICIAN EXAMINATION ADMITTING DIAGNOSIS: Encephalopathy. HISTORY OF PRESENT ILLNESS: The patient is admitted to the acute rehab with a nontraumatic injury such as metabolic encephalopathy. A 64-year-old morbidly obese female that presented to ED with shortness of breath, altered mental status. She was recently discharged from inpatient acute rehab for prolonged hospitalization after being in the LTAC for MRSA bacteremia and pneumonia. She had been doing well at home since then, but a few days prior to her acute hospital admit she developed increasing shortness of breath. She needed supplemental O2. She was given Lasix and lactulose in the ED. Her BNP was 1845. Ammonia level was 131. CT of her chest was negative for PE. She was admitted to ICU and placed on noninvasive mechanical ventilation due to worsening periods of apnea. She required a ventilator in May 2019 and had trach placed on 06/06/2019, was downsized to a cuffless trach and eventually decannulized after aggressive diuresis. She tested positive for MRSA in her sputum and continues on isolation. She has progressed well medically, has been participating in therapy. She has been receiving physical and occupational therapy throughout her stay. She needs to be monitored closely for possible seizure activity with history of ETOH use. She also has recent hypoglycemia. Monitoring her O2 sats. Her cognition has been somewhat low secondary to elevated ammonia level. She has got pain control, monitoring her input and output, electrolyte protocol, weakness, balance deficits and impaired mobility. She has got decreased quality of life, decreased range of motion, limited safety awareness. She has medical complexity for falls. She is requiring supplemental equipment to get around. She has got low endurance, unsteady gait and balance, fatigues easily and has inability to care for self. These are all barriers to her discharge home. She lives at home with her niece and niece's family. Was independent with ADLs and mobility with using a rolling walker prior to this. She is currently set up for mod assist for ADLs and mod assist for mobility. She and her family would like to get her back to her prior level of functioning or better and return her back to this living agreement. COMORBIDITIES: Include weakness, morbid obesity, acute hepatic encephalopathy, alcoholic liver cirrhosis, hepatitis C, [id number] thrombocytopenia, COPD, chronic respiratory failure, atrial fib, MRSA bacteremia and pneumonia, fluid overload, hypoglycemia, history of seizures. PAST MEDICAL HISTORY: Significant for anxiety, arthritis, CHF, depression, hep C, hypertension, MRSA, has got a history of seizure disorder, alcoholic cirrhosis, COPD. She has got chronic hypoxic and hypercapnic respiratory failure, AFib and tobacco use. PAST SURGICAL HISTORY: Includes shoulder surgery and PEG tube placement and also trach. ALLERGIES: PENICILLIN. CURRENT MEDICATIONS: Include Protonix 40 mg daily. She is on Xifaxan 550 b.i.d., potassium 40 mEq daily. She is on mineral oil p.r.n., metoprolol 25 mg HISTORY AND PHYSICAL [id number] ELIZABETH DENTONE b.i.d., lactulose 30 cc b.i.d., Zofran 4 mg every 4 hours p.r.n., furosemide 80 mg b.i.d., MiraLax 17 grams in 8 ounces of water daily. HABITS: Does have a history of alcohol use. FAMILY HISTORY: Noncontributory. SOCIAL HISTORY: The patient hopes to return back home and get back to her prior level of functioning. REVIEW OF SYSTEMS: GENERAL: Does complain of some weakness and fatigue. HEENT: Denies cold, cough, or congestion. CARDIOVASCULAR: Denies any chest pain. PHYSICAL EXAMINATION: VITAL SIGNS: Stable, afebrile. GENERAL: A well-developed, obese female in no acute distress upon exam. HEENT: Normocephalic and atraumatic. Mucosa moist. NECK: Supple with no lymphadenopathy. LUNGS: Clear at this time with no wheezing, rhonchi or rales. HEART: Irregular rate and rhythm. ABDOMEN: Soft, benign and nondistended. Positive bowel sounds times 4. EXTREMITIES: No clubbing, cyanosis or edema. NEUROLOGIC: She does have diffuse weakness in upper and lower extremities. ASSESSMENT: This is a 64-year-old female patient admitted to rehab with a working diagnosis of metabolic encephalopathy. The patient has potential for improvement and needs the following multiple disciplinary therapies including, but not limited to physical, occupational, respiratory, speech, nutritional services, prosthetics and orthotics. Given her complex medical condition and risk for more complications, rehabilitation services cannot be provided at a low level of care such as nursing home facility. PLAN: 1. Admit to [facility] for intensive inpatient therapy to include the following disciplines; A. Physical therapy to improve gait, all transfer skills and bed mobility to a modified independent level. B. Occupational therapy to improve activities of daily living. C. Case management to assist with discharge planning and placement options. D. Nutrition to assist with nutritional needs. E. Rehabilitation nursing to assist in monitoring the patient's underlying medical conditions and to assist with any type of bowel or bladder management. 2. The patient's current medication and medical care will be continued. 3. We are awaiting labs at this time. 4. We will adjust her lactulose levels, pending her ammonia levels. 5. We will see again in the a.m. TRANSINT:[id number] Voice Confirmation ID: [id number] DOCUMENT ID: [id number] MERT notes whether there has been none or any medical/functional change since admission: - No change since prescreen. HISTORY AND PHYSICAL [id number] ELIZABETH DENTON attests patient continues to be appropriate for IRF: - Continues to be appropraite. CRYSTAL CUELLAR MD at 0847 CC: [id number] DICTATION DATE: 08/29/19 0847 ENVIRONMENTAL TECHNICAL OFFICER: 08/29/19 1049 ADM IN [facility] [address] [place] [address]
--- NOTE | 2019-09-04 11:03 | NUR ---
PATIENT DISCHARGING HOME TODAY WITH FAMILY. [facility] WILL RESUME THERAPY AT HOME. NO NEW DME NEEDED AT THIS TIME. DR. GUEVARA 09/11/19 @ 2;15. YARA SIGNED AND IMM SERVED AND EXPLAINED. NO COMPARE DATA REVIEWED PER PATIENT REQUEST. DISCHARGE INSTRUCTIONS FAXED TO PCP, HOME HEALTH AND REVIEWED WITH PATIENT PER PRIMARY NURSE. DISCHARGE INSTRUCTIONS FAXED AN SPOKE WITH LORRAINE SON WITH [employer], AUTH. # [id number]
--- NOTE | 2019-09-04 15:00 | NUR ---
I have reviewed this patient and I concur with the Shift Assessment completed by the Licensed Practical Nurse today this shift.
--- NOTE | 2019-09-04 17:18 | NUR ---
DISCHARGE INSTRUCTIONS REVIEWED WITH PT AND VERBALIZES UNDERSTANDING. NO QUESTIONS. LEFT FLOOR VIA W/C WITH ALL PERSONAL BELONGINGS AND LEFT FACILITY VIA PRIVATE VEHICLE WITH HER NIECE.
== END 2019-09-04 17:19 | disposition home health service (06) | DRG 70 ==
LOC: D.REHAB 16:23
PROVIDERS: ADMIT Emergency Medicine; ATTEND Emergency Medicine
DX: G93.41 Metabolic encephalopathy (principal); K72.00 Acute and subacute hepatic failure without coma; J96.11 Chronic respiratory failure with hypoxia; E66.01 Morbid (severe) obesity due to excess calories; K70.30 Alcoholic cirrhosis of liver without ascites; B19.20 Unspecified viral hepatitis C without hepatic coma; D69.6 Thrombocytopenia, unspecified; I48.91 Unspecified atrial fibrillation; I50.9 Heart failure, unspecified; Z68.39 Body mass index [BMI] 39.0-39.9, adult; J44.9 Chronic obstructive pulmonary disease, unspecified; F41.8 Other specified anxiety disorders

== ENCOUNTER 2019-09-16 16:22 | Inpatient (IN) | payer MEDICAID ==
[~2019-09-16] VITALS: Ht 152.4 cm; Wt 130.1 kg
--- NOTE | ~2019-09-16 | HEMODYNAMI ---
PATIENT:ELIZABETH DENTON MEDICAL RECORD: [id number] : 57 [facility]# [id number] ADMISSION DATE: 09/16/19 Generatedon:09/25/201914:47 Patient name: ELIZABETH DENTON Patient #: [id number] SSN: [id number] : 1955 Date of study: 09/25/2019 Page: Of Hemodynamic Procedure Report Patient Data Patient Demographics Procedure consent was obtained First Name: ELIZABETH Gender: Female Last Name: CORRIE : 1955 [facility] Initial: LORENZA Age: 64 year(s) Patient #: [id number] Race: SSN: [id number] Additional ID: [id number] Contact details [address]: [address] [place] [address] State: [place] City: [place] Zip code: [address] Past Medical History Allergies Allergen Reaction Date Comments Reported Other allergy 09/25/2019 PCN Admission Admission Data Admission Date: 09/16/2019 Admission Time: 19:11 Arrival Date: 09/25/2019 Arrival Time: 0:00 Admit Source: Other Insurance Payor: Private Room #: [id number] health insurance [facility] #: [id number] Height (in.): 60 BSA: 2.17 (m2) Height (cm.): 152.4 BMI: 55.46 (kg/m2) Weight (lbs.): 283.96 Weight (kg.): 128.8 Lab Results Lab Result Date: 09/25/2019 Lab Result Time: 0:00 Biochemistry Name Units Result Min Max BUN mg/dl 15 --(--*-)-- 7 18 Creatinine mg/dl 0.7 --(*---)-- 0.6 1.3 eGFR ml/min 90 --(*---)-- 90 120 NONAFRICAN CBC Name Units Result Min Max Hematocrit % 32.9 *-(----)-- 42 54 Hemoglobin g/dl 10.3 *-(----)-- 13.5 17.5 Procedure Procedure Types Cath Procedure Diagnostic Procedure Cardioversion External ELSA Procedure Description Procedure Date Procedure Date: 09/25/2019 Procedure Start Time: 14:29 Procedure End Time: 14:46 Procedure Staff Name Function Jeramy Polo MD Performing Physician Juliet Harry RT Monitor Janet Root RT Scrub Trevor Samuels RN Nurse Edgard Cotter CRNA Additional personnel Saeid Gibson Image Editor Procedure Data Procedure Complications No complications Procedure Medications Medication Administration Route Dosage Oxygen etCO2 Nasal cannula 3 l/min Hurricaine Sinton P.O. 1 Sprays Refer to Anesthesia Notes for Sedation Medications Hemodynamics Rest BSA: 2.17 (m2) HGB: 10.3 (g/dl) O2 Consumption: Estimated: 221.44 (ml/min) O2 Consumption indexed: Estimated:102.05 (ml/min/m) Heart Rate: 91 (bpm) Snapshots Pre Cath Intra NCS Post Cath Vital Signs Time Heart Resp SPO2 etCO2 NIBP (mmHg) Rhythm Pain Sedation Rate (ipm) (%) (mmHg) Status Level (bpm) 14:20:55 92 18 98 0 155/92(107) A-Fib 0 (11) 10(A) , No pain 14:26:54 66 20 97 0 142/85(112) A-Fib 0 (11) 9(A) , No pain 14:40:16 64 24 94 0 119/72(0) NSR 0 (11) 10(A) , No pain 14:31:02 64 22 94 0 117/62(86) NSR 0 (11) 9(A) , No pain Medications Time Medication Route Dose Verified Delivered Reason Notes Effectiv eness by by 14:20:13 Oxygen etCO2 3 Edgard Murray used for Nasal l/min Cyndee Samuels RN procedure cannula SENIOR SECURITY ARCHITECT 14:20:23 Hurricaine P.O. 1 Edgard Murray Per Sinton Sprays Cyndee Samuels RN physician SENIOR SECURITY ARCHITECT 14:20:27 Refer to Edgard Murray Anesthesia Cyndee Samuels RN Notes for SENIOR SECURITY ARCHITECT Sedation Medications Procedure Log Time Note 13:49:24 Informed consent obtained and on chart 13:50:59 Janet Root RT(R) sent for patient. Start room use. 13:53:01 Diagnostic Cath Status : Elective 13:53:25 Arrival Date: 09/25/2019 12:00:00 AM 13:53:26 Admit Source: Other 13:53:48 Patient Height : 60 inches 13:53:52 Patient Weight : 283.96 lbs 13:53:55 Insurance Payor : Private health insurance 13:54:26 Patient allergic to Other allergyPCN 13:55:56 Procedure Status Cardioversion, ELSA. 13:56:17 Time tracking: Regular hours (M-F 7:00 - 5:00) 13:56:22 Plan of Care:Hemodynamics will remain stable., Cardiac rhythm will remain stable., Comfort level will be maintained., Respiratory function will remain adequate., Patient/ family verbilizes understanding of procedure., Procedure tolerated without complication., Recovers from procedure without complications.. 13:58:11 H&P Date Dictated: 09/25/2019 Within 30 days and on chart.. 13:58:12 Pre-procedure instructions explained to patient. 13:58:13 Pre-op teaching completed and patient verbalized understanding. 13:58:15 Family in patients room. 13:58:16 Patient NPO since Midnight. 13:58:45 Lab Result : BUN 15 mg/dl 13:58:45 Lab Result : Creatinine 0.7 mg/dl 13:58:45 Lab Result : Hemoglobin 10.3 g/dl 13:58:45 Lab Result : eGFR NONAFRICAN 90 ml/min 13:58:45 Lab Result : Hematocrit 32.9 % 13:58:51 Alarms reviewed by R. N. 13:58:51 Sharps counted by scrub and verified by R.N. 13:58:56 Stress Test: no; N/A ? 13:58:58 Lab results completed and on chart. 14:09:04 Patient received from Med II to CCL 1 Alert and oriented. Tansferred to table in Supine position. 14:09:05 Warm blankets applied, and celsa hugger turned on for patient comfort. 14:09:05 Correct patient and procedure confirmed by team. 14:09:06 ECG and BP/O2 sat monitors applied to patient. 14:14:44 Patient diabetic? No. 14:14:46 If diabetic: On Metformin? N/A 14:14:50 Patient not . Patient is over age 55. 14:15:25 Previous problem with sedation/anesthesia? Yes fighting when awakened 14:15:29 Snore? Yes 14:15:31 Sleep apnea? Yes 14:15:32 Deviated septum? No 14:15:34 Opens mouth fully? Yes 14:15:35 Sticks out tongue? Yes 14:15:39 Airway obstruction? Yes copd 14:15:43 Dentures? No ? 14:18:09 Edgard Cotter CRNA present and monitoring patient for TIVA. 14:19:16 --------ALL STOP TIME OUT------ 14:19:17 Final Timeout: patient, procedure, and site verified with staff and physician. All members of the team are in agreement. 14:19:22 Fire Safety Assessment: A--An alcohol-based skin anteseptic being used preoperatively., C--Open oxygen or nitrous oxide is being used., D--An ESU, laser, or fiber-optic light is being used. 14:19:45 Physical assessment completed. ASA score P 2 - A patient with mild systemic disease as per Jeramy Polo MD. 14:19:50 1) 90+ Normal kidney functon but urine findings or structural abnormalities or genetic trait point to kidney disease. 14:19:50 Vital chart was started 14:19:56 Rhythm: atrial flutter 14:19:57 Sedation plan: TIVA Medication:Propofol 14:19:58 Baseline sample Acquired. 14:20:13 Oxygen 3 l/min etCO2 Nasal cannula was administered by Trevor Samuels RN; used for procedure; Verbal order read back and verified. 14:20:23 Hurricaine Sinton 1 Sprays P.O. was administered by Trevor Samuels RN; Per physician; Verbal order read back and verified. 14:20:27 Refer to Anesthesia Notes for Sedation Medications was administered by Trevor Samuels RN; ; Verbal order read back and verified. 14:21:28 ELSA 14:21:31 Saeid Gibson Forensic Accountant present for ELSA. 14:21:45 ELSA started. 14::58 ELSA completed. 14:28:59 ------Cardioversion------ 14:29:00 Procedure started. 14:29:01 Full Disclosure recording started 14:29:02 Quick combo pads placed on patients chest and back. 14:29:10 Defibrillator synced and charged to 200 Joules. 14:29:12 Shock delivered. 14:30:21 Patient cardioverted to sinus rhythm . 14:30:27 Procedure ended.(Physican Out) 14:30:48 Post-procedure physical assessment completed. ASA score P 2 - A patient with mild systemic disease as per Jeramy Polo MD. 14:30:53 Post procedure rhythm: sinus rhythm 14:30:56 Post procedure instruction explained to patient.Patient verbalizes understanding. 14:30:57 Patient needs reinforcement of post procedure teaching. 14:33:53 Procedure and supply charges have been captured, reviewed, submitted and are correct. 14:33:57 Procedure Complication : No complications 14:34:12 ELSA Findings: ELSA w/ cardioversion: left atrial clot noted (will not proceed with cardioversion) 14:34:16 Operative report dictated upon procedure completion. 14:34:17 See physician's report for complete and final results. 14:34:19 Report given to Med II. 14:34:22 Patient transfered to Med II with Bed. 14:46:23 Vital chart was stopped 14:46:46 Procedure ended. 14:46:46 Full Disclosure recording stopped 14:46:58 End room use (Document Last) 14:47:34 End room use (Document Last) Signature Audit [place] Stage Time Signature Unsigned Intra-Procedure 09/25/2019 Juliet Harry 2:47:10 PM RT(R) Intra-Procedure 09/25/2019 Janet Root 2:47:17 PM RT(R) Intra-Procedure 09/25/2019 Trevor Samuels RN 2:47:35 PM Intra-Procedure 09/25/2019 Jeramy Cedeno 2:47:55 PM Donovan [id number] [place] [address]
[~2019-09-16 16:22] MED LIST changes: +CHRONULAC30 ML PO; +K-TAB10 MEQ PO; +LASIX80 MG PO; +PATOWN PO; +XIFAXAN550 MG PO; +ZOFRAN4 MG PO
[2019-09-16 18:02] LABS: CALC OSMOLALITY 264 mosm/kg (275-300); CALCIUM 7.9 mg/dL (8.5-10.1); CARBON DIOXIDE 30.3 mmol/L (21.0-32.0); CHLORIDE - SERUM 100 mmol/L (98-107); CREATININE - SERUM 0.8 mg/dL (0.6-1.3); GLUCOSE 97 mg/dL (74-106); POTASSIUM - SERUM 3.3 mmol/L (3.5-5.1); SODIUM 134 mmol/L (136-145); UREA NITROGEN 5 mg/dL (7-18); eGFR NON AFRICAN AMERICAN 77 mL/min (90-120)
[2019-09-16 18:04] LABS: BASOPHILS 0 % (0-2); EOSINOPHILS 1.8 % (0-7); HEMATOCRIT 31.2 % (36.0-48.0); HEMOGLOBIN 9.4 g/dL (12-16); IMMATURE GRANULOCYTES 0.7 % (0-5); LYMPHOCYTES 23.3 % (15-50); MCH 26.3 pg (26.0-34.0); MCHC 30.1 g/dL (31.0-37.0); MCV 87.4 fL (80.0-100.0); MEAN PLATELET VOLUME 9.5 fL (7.4-10.4); MONOCYTES 17.7 % (2-11); NEUTROPHILS 56.5 % (40-80); PLATELET COUNT 60 10x3/uL (130-400); RBC 3.57 10x6/uL (4.00-5.40); RDW 16.2 % (11.5-14.5); WBC 2.8 10x3/uL (4.8-10.8)
[2019-09-16 18:08] LABS: APTT 36.4 SECONDS (22.8-39.4)
[2019-09-16 18:21] LABS: ALBUMIN 2.4 g/dL (3.4-5.0); ALKALINE PHOSPHATASE 79 U/L (30-120); ALT (SGPT) 14 U/L (10-68); CKMB 2.6 U/L (0.0-3.6); CREATINE KINASE 96 UL (21-215); PRO BNP 2297 pg/mL (0-125); PROTEIN - SERUM 7.5 g/dL (6.4-8.2)
[2019-09-16 18:22] LABS: TROPONIN-I < 0.017 ng/mL (0.000-0.060)
[2019-09-16 18:30] VITALS: BP 122/93
[2019-09-16 18:35] LABS: INR 1.44 (0.85-1.17); PROTIME 17.4 SECONDS (11.6-15.0)
[2019-09-16 18:39] LABS: PLATELET ESTIMATE DECREASED
--- NOTE | 2019-09-16 19:11 | NUR ---
BS REPORT TO MAXIMILIANO SANTACRUZ
--- NOTE | 2019-09-16 20:15 | NUR ---
PATIENT ARRIVED FROM ED. PATIENT IS PLEASANTLY CONFUSED. RESPIRATIONS ARE EVEN AND UNLABORED. PATIENT IS ON 3L NC. PATIENT HAS TREVINO CATHETER. PATIENT HAS FEEDING TUBE THAT IS ENCRUSTED WITH A HARD BROWN COLERED SUBSTANCE. PATIENT HAS SMALL BRUISES GENERALIZED ALL OVER BODY. CALL LIGHT WITHIN REACH. BED ALARM ON. WILL CPOC.
[2019-09-17] VITALS (21 sets, daily range): BP systolic 104–143; BP diastolic 63–109; BMI 54.6
[2019-09-17 01:41] LABS: CKMB 2.3 U/L (0.0-3.6); CREATINE KINASE 71 UL (21-215)
[2019-09-17 01:44] LABS: TROPONIN-I < 0.017 ng/mL (0.000-0.060)
--- NOTE | 2019-09-17 01:55 | NUR ---
Patient received from med II via stretcher responsive only to painful stimuli. Patient had labored breathing and auditory congestion noted. Clifford Lynn APN at bedside. RT here to set up bipap. Patient aroused and is oriented x3 communicates needs well. Shrestha intact with yellow urine noted. Peg tube inplace with airbolus auscultation. Peg tube does have dry green crusty exudate noted. Peg tube clean with wound cleanser and dressing applied. Patient connected to monitor and bipap. Call light within reach, bed in low position, and alarm on. Will continue to monitor. IV 24g noted in R thumb saline lock without redness or edema noted.
[2019-09-17 07:21] LABS: HEMATOCRIT 33.8 % (36.0-48.0); HEMOGLOBIN 9.9 g/dL (12-16); MCHC 29.3 g/dL (31.0-37.0); MCV 88.7 fL (80.0-100.0); MEAN PLATELET VOLUME 10.6 fL (7.4-10.4); RBC 3.81 10x6/uL (4.00-5.40); RDW 16.1 % (11.5-14.5)
[2019-09-17 07:29] LABS: PLATELET COUNT 47 10x3/uL (130-400); WBC 1.4 10x3/uL (4.8-10.8)
--- NOTE | 2019-09-17 07:30 | NUR ---
REPORT RECIEVED, SHIFT ASSESSMENT COMPLETE, PT IS LETHARGIC ON BIPAP, AROUSES TO VOICE, ALL PPP, VSS, WILL CON'T TO MONITOR
[2019-09-17 07:43] LABS: CALC OSMOLALITY 276 mosm/kg (275-300); CALCIUM 8.1 mg/dL (8.5-10.1); CARBON DIOXIDE 30.7 mmol/L (21.0-32.0); CHLORIDE - SERUM 104 mmol/L (98-107); CKMB 1.7 U/L (0.0-3.6); CREATINE KINASE 55 UL (21-215); CREATININE - SERUM 0.8 mg/dL (0.6-1.3); GLUCOSE 124 mg/dL (74-106); MAGNESIUM - SERUM 1.5 mg/dL (1.8-2.4); PHOSPHOROUS 4.7 mg/dL (2.5-4.9); SODIUM 139 mmol/L (136-145); TROPONIN-I < 0.017 ng/mL (0.000-0.060); UREA NITROGEN 6 mg/dL (7-18); eGFR NON AFRICAN AMERICAN 77 mL/min (90-120)
[2019-09-17 07:45] LABS: POTASSIUM - SERUM 3.9 mmol/L (3.5-5.1)
--- NOTE | 2019-09-17 09:00 | NUR ---
NO VISITORS AT THIS TIME, WILL CON'T TO MONITOR
[2019-09-17 11:00] LABS: ANISOCYTOSIS OCC; LYMPHOCYTES 14 % (15-50); MONOCYTES 4 % (2-11); NEUTROPHILS 82 % (40-80); PLATELET ESTIMATE DECREASED
--- NOTE | 2019-09-17 11:30 | NUR ---
DR. QUEZADA AT BEDSIDE, NEW ORDERS RECIEVED
--- NOTE | 2019-09-17 13:00 | NUR ---
UPDATE GIVEN TO FAMILY OVER PHONE, PASSWORD OBTAINED
[2019-09-17 13:59] LABS: HEMATOCRIT 31.2 % (36.0-48.0); HEMOGLOBIN 9.3 g/dL (12-16)
[2019-09-17 14:21] LABS: CKMB 1.4 U/L (0.0-3.6); CREATINE KINASE 37 UL (21-215)
[2019-09-17 14:23] LABS: TROPONIN-I < 0.017 ng/mL (0.000-0.060)
--- NOTE | 2019-09-17 15:16 | NUR ---
REASSESSMENT COMPLETE, NO CHANGES NOTED, WILL CON'T TO MONITOR
--- NOTE | 2019-09-17 16:06 | NUR ---
PT NOW ALERT AND ORIENTED, LG BM, COMPLETE BATH AND LINEN CHANGE
[2019-09-17 16:19] LABS: HEMATOCRIT 33.6 % (36.0-48.0); HEMOGLOBIN 10.3 g/dL (12-16)
[2019-09-17 17:02] LABS: BACTERIA FEW /hpf (NEGATIVE); BILIRUBIN NEGATIVE (NEGATIVE); EPITHELIAL CELLS OCC /hpf (0-5); KETONE NEGATIVE (NEGATIVE); NITRITE NEGATIVE (NEGATIVE); RED CELLS - URINE >50 /hpf (0-5); SPECIFIC GRAVITY 1.025 (1.005-1.020); UROBILINOGEN NORMAL (NORMAL); WHITE CELLS - URINE OCC /hpf (NEGATIVE)
[2019-09-17 17:03] LABS: GLUCOSE NEGATIVE (NEGATIVE)
[2019-09-17 17:15] LABS: UDS - AMPHET NEGATIVE QUAL (NEGATIVE); UDS - BARB NEGATIVE QUAL (NEGATIVE); UDS - BENZO NEGATIVE QUAL (NEGATIVE); UDS - COCAINE NEGATIVE QUAL (NEGATIVE); UDS - OPIATE NEGATIVE QUAL (NEGATIVE); UDS - PCP NEGATIVE QUAL (NEGATIVE); UDS - THC NEGATIVE QUAL (NEGATIVE)
--- NOTE | 2019-09-17 19:40 | NUR ---
PATIENT HAD INCONTINENT BM LIQUID YELLOW CONTENT WITH SMALL PARTICLES NOTED. PATIENT CLEANED AND LINEN CHANGED.
--- NOTE | 2019-09-17 21:10 | NUR ---
DR. HAIRSTON NOTIFIED THAT PATIENT EATS PO AND NOT VIA PEG TUBE. NEW ORDER RECEIVED THAT PATIENT MAY TAKE MEDS AND HAVE REGULAR DIET.
--- NOTE | 2019-09-17 21:30 | NUR ---
RESTARTED IV IN R SHOULDER AND R AC 22G CATH X4 STICKS WITH ASEPTIC TECHNIQUE USED. GOOD BLOOD RETURN NOTED WITHOUT REDNESS OR EDEMA NOTED.
--- NOTE | 2019-09-17 22:20 | NUR ---
GONZALO HAD INCONTINENT BM, CLEANED AND LINEN CHANGED. TREVINO CARE COMPLETE. CALL LIGHT WITHIN REACH, BED IN LOW POSITION.
--- NOTE | 2019-09-17 23:00 | NUR ---
REASSESSMENT COMPLETE NO CHANGES NOTED. CALL LIGHT WITHIN REACH, BED IN LOW POSITION.
[2019-09-18] VITALS (16 sets, daily range): BP systolic 95–140; BP diastolic 63–98; Ht 152.4 cm; Wt 130.1 kg
--- NOTE | 2019-09-18 01:00 | NUR ---
PAITENT SLEEPING WITH NO DISTRESS NOTED. CALL LIGHT WITHIN REACH, BED IN LOW POSITION, AND ALARM ON.
[2019-09-18 01:14] LABS: HEMOGLOBIN 9.8 g/dL (12-16)
--- NOTE | 2019-09-18 03:00 | NUR ---
REASSESSMENT COMPLETE NO CHANGES NOTED. CALL LIGHT WITHIN REACH, BED IN LOW POSITION, AND ALARM ON.
[2019-09-18 04:16] LABS: BASOPHILS 0 % (0-2); EOSINOPHILS 0 % (0-7); HEMATOCRIT 30.7 % (36.0-48.0); HEMOGLOBIN 9.1 g/dL (12-16); LYMPHOCYTES 8.2 % (15-50); MCH 25.9 pg (26.0-34.0); MCHC 29.6 g/dL (31.0-37.0); MCV 87.5 fL (80.0-100.0); MEAN PLATELET VOLUME 9.8 fL (7.4-10.4); MONOCYTES 9.4 % (2-11); NEUTROPHILS 82.4 % (40-80); RBC 3.51 10x6/uL (4.00-5.40); RDW 16.4 % (11.5-14.5)
[2019-09-18 04:24] LABS: INR 1.35 (0.85-1.17); PROTIME 16.5 SECONDS (11.6-15.0)
[2019-09-18 04:45] LABS: ANION GAP 5.8 mmol/L (8-16); BILIRUBIN - TOTAL 0.73 mg/dL (0.2-1.3); CALCIUM 8.4 mg/dL (8.5-10.1); CARBON DIOXIDE 29.7 mmol/L (21.0-32.0); POTASSIUM - SERUM 3.5 mmol/L (3.5-5.1); PROTEIN - SERUM 6.9 g/dL (6.4-8.2)
[2019-09-18 04:46] LABS: PHOSPHOROUS 1.5 mg/dL (2.5-4.9)
--- NOTE | 2019-09-18 05:00 | NUR ---
GONZALO IS COMPLAINING ABOUT SALINE LOCK BURNING NO REDNESS OR EDEMA IS NOTED AT THIS TIME. CALL LIGHT WITHIN REACH, BED IN LOW POSITION, AND ALARM IS ON. WILL CONTINUE TO MONITOR.
[2019-09-18 05:08] LABS: WBC 2.6 10x3/uL (4.8-10.8)
[2019-09-18 05:09] LABS: PLATELET COUNT 41 10x3/uL (130-400)
--- NOTE | 2019-09-18 07:16 | NUR ---
REPORT RECIEVED, SHIFT ASSESSMENT COMPLETE, PT IS ALERT AND ORIENTED, ON 2L NC WITH 97% O2 SAT, ALL PPP, VSS, CALL LIGHT IN REACH
--- NOTE | 2019-09-18 09:00 | NUR ---
RIGHT FA PIV INFILTRATED, DC'D WITH CATH INTACT,
--- NOTE | 2019-09-18 09:30 | NUR ---
APS AT BEDSIDE, SPOKE AT LENGTH WITH PT
--- NOTE | 2019-09-18 10:59 | NUR ---
NIECE CALLED AT THIS TIME, PT STATES "AMBIKA MY SISTER IS THE ONLY ONE I WANT INFORMATION GIVEN TO", NEW PASSWORD OBTAINED
--- NOTE | 2019-09-18 12:06 | MORECARE ---
CASE MANAGEMENT DISCHARGE SUMMARY PATIENT: ELIZABETH DENTON UNIT: [id number] ADM DATE: 09/16/19 AGE: 64 : 57 SEX: F ROOM/BED: D.2316 AUTHOR: AURELIA,DOC PHYSICIAN: REFERRING PHYSICIAN: JANNET HAIRSTON MD DATE OF SERVICE: 09/18/19 Discharge Plan Patient Name: ELIZABETH DENTON Facility: [facility]:[place] : 1955 Planned Disposition: Anticipated Discharge Date: Discharge Date: Expected LOS: Initial Reviewer: [email or web address] Initial Review Date: 09/18/2019 Generated: 09/18/19 1:06 pm Comments DCP- Discharge Planning Updated by [email or web address]: Ele Grimes on 09/18/19 11:[address] Patient Name: ELIZABETH DENTON Admission Status: ER Accout number: [id number] Admission Date: 09-16-2019 : 1955 Admission Diagnosis:ACUTE AND CHRONIC RESPIRATORY FAILURE WITH HYPERCAPNIA Attending: JANNET HAIRSTON Current LOS: 2 Anticipated DC Date: Planned Disposition: Primary Insurance: [place] [employer] [place] Discharge Planning Comments: CM MET WITH PATIENT ABOUT DC PLANNING/NEEDS. SHE STATES SHE WILL NEED REHAB BEFORE GOING HOME. YARA SIGNED FOR [facility]. I TALKED WITH HER ABOUT SNF FACILITIES BUT SHE IS NOT WANTING TO DISCUSS THAT AT THIS TIME. PATIENT WILL POSSIBLY BE TRANSFERED TO THE FLOOR TODAY. CM WILL FOLLOW AND ASSIST NEEDED. Clinical Nurse Educator: Ele Grimes DCPIA - Discharge Planning Initial Assessment Updated by [id number]: Ele Grimes on 09/18/19 12:00 pm * Is the patient Alert and Oriented? Yes * PCP [facility] * [facility] * Preadmission Environment Home with Family * List name and contact numbers for known caregivers / representatives who currently or will assist patient after discharge: AMBIKA TREVINO * Community resources currently utilized Home Health * Please name any agencies selected above. [facility] * Additional services required to return to the preadmission environment? Yes * Can the patient safely return to the preadmission environment? No * Has this patient been hospitalized within the prior 30 days at any hospital? Yes Coverage Notice Reviewer: [id number] - Ele Grimes Notice Issued Date-Time: 09/18/2019 12:02 Notice Type: Patient Choice Letter Notice Delivered To: Patient Relationship to Patient: Service Planner Name: Delivery Method: HAND - Hand Delivered Vilma Days: Prior Verbal Notification: Recipient Understood Notice: Yes Recipient Signature: Yes Med Rec Note Co-signed by Attending: Coverage Notice Comment: [facility] Patient Name: ELIZABETH DENTON Page [phone] at 1206 All edits/amendments must be made on the electronic document DICTATION DATE: 09/18/19 1206 MEDICAL CODING AUDITOR: YORDY 09/18/19 1206 RPT#: [id number] DC DATE: STATUS: ADM IN [facility] [address] [place] [address] END OF REPORT
--- NOTE | 2019-09-18 12:20 | MORECARE ---
CASE MANAGEMENT DISCHARGE SUMMARY PATIENT: ELIZABETH DENTON UNIT: [id number] ADM DATE: 09/16/19 AGE: 64 : 57 SEX: F ROOM/BED: D.2316 AUTHOR: AURELIA,DOC PHYSICIAN: REFERRING PHYSICIAN: JANNET HAIRSTON MD DATE OF SERVICE: 09/18/19 Discharge Plan Patient Name: ELIZABETH DENTON Facility: [facility]:[place] : 1955 Planned Disposition: Anticipated Discharge Date: Discharge Date: Expected LOS: Initial Reviewer: [email or web address] Initial Review Date: 09/18/2019 Generated: 09/18/19 1:19 pm Comments DCP- Discharge Planning Updated by [email or web address]: Ele Grimes on 09/18/19 11:[address] Patient Name: ELIZABETH DENTON Admission Status: ER Accout number: [id number] Admission Date: 09-16-2019 : 1955 Admission Diagnosis:ACUTE AND CHRONIC RESPIRATORY FAILURE WITH HYPERCAPNIA Attending: JANNET HAIRSTON Current LOS: 2 Anticipated DC Date: Planned Disposition: Primary Insurance: [place] PRIVATE OPTIONS [place] Discharge Planning Comments: CM MET WITH PATIENT ABOUT DC PLANNING/NEEDS. SHE STATES SHE WILL NEED REHAB BEFORE GOING HOME. YARA SIGNED FOR IPR AT [facility]. I TALKED WITH HER ABOUT LONGTERM FACILITIES BUT SHE IS NOT WANTING TO DISCUSS THAT AT THIS TIME. PATIENT WILL POSSIBLY BE TRANSFERED TO THE FLOOR TODAY. CM WILL FOLLOW AND ASSIST NEEDED. Field Representative/Health Education: Ele Grimes Appended by Ele Grimes on 09/18/2019 12:06 CDT: OT AND REHAB ORDER PLACED ON PATIENT TODAY. DCPIA - Discharge Planning Initial Assessment Updated by [id number]: Ele Grimes on 09/18/19 12:00 pm * Is the patient Alert and Oriented? Yes * PCP [place] * [facility] * Preadmission Environment Home with Family * List name and contact numbers for known caregivers / representatives who currently or will assist patient after discharge: AMBIKA TREVINO * Community resources currently utilized Home Health * Please name any agencies selected above. [facility] * Additional services required to return to the preadmission environment? Yes * Can the patient safely return to the preadmission environment? No * Has this patient been hospitalized within the prior 30 days at any hospital? Yes Coverage Notice Reviewer: [id number] Leonel Eleryan Grimes Notice Issued Date-Time: 09/18/2019 12:02 Notice Type: Patient Choice Letter Notice Delivered To: Patient Relationship to Patient: Auto Headlight Mechanic Name: Delivery Method: HAND - Hand Delivered Vilma Days: Prior Verbal Notification: Recipient Understood Notice: Yes Recipient Signature: Yes Med Rec Note Co-signed by Attending: Coverage Notice Comment: [facility] Last DP export: 09/18/19 11:06 a Patient Name: ELIZABETH DENTON Page [phone] at 1220 All edits/amendments must be made on the electronic document DICTATION DATE: 09/18/191218 INDUSTRIAL CONTROLS TECHNICIAN: YORDY 09/18/191218 RPT#: [id number] DC DATE: STATUS: ADM IN [facility] [address] [place] [address] END OF REPORT
--- NOTE | 2019-09-18 12:43 | NUR ---
Rehab Note- Acute Inpatient Rehab prescreen order received. The patient is [place] Private Options- will need OT and PT Evals. Will follow at this time. Thank you for this referral! Lois Palomino RN Clinical Liaison, [facility] Re[facility]
--- NOTE | 2019-09-18 13:57 | NUR ---
REPORT CALLED TO MED 2 AT THIS TIME, PT TRANSFERRED VIA BED
--- NOTE | 2019-09-18 15:03 | NUR ---
PT TO ROOM FROM ICU. RT IN ROOM SETTING UP SUPPLIES. PULSE OX 92% ON 2 LITERS. PEG TUBE NOTED, CLAMPED. TREVINO AT BEDSIDE.
--- NOTE | 2019-09-18 19:34 | NUR ---
PT LYING IN BED RESTING WITH EYES CLOSED. EASILY AWAKEN WITH VOICE STIMULATION. PT IS ALERT AND ORIENTED X4. NO SIGNS OF DISTRESS NOTED. ALLERGIST/IMMUNOLOGIST PHYSICIAN IS AT BEDSIDE. CALL LIGHT AND OTHER PERSONAL ITEMS WITH IN REACH WILL CONTINUE TO MONITOR.
[2019-09-19] VITALS: BP 130/78
[2019-09-19 04:00] VITALS: BP 139/77
[2019-09-19 08:04] VITALS: BP 130/46; BP 139/65
[2019-09-19 10:21] LABS: BASOPHILS 0 % (0-2); EOSINOPHILS 0 % (0-7); HEMATOCRIT 33.1 % (36.0-48.0); IMMATURE GRANULOCYTES 0.6 % (0-5); LYMPHOCYTES 6.5 % (15-50); MCH 26.7 pg (26.0-34.0); MCHC 30.2 g/dL (31.0-37.0); MCV 88.3 fL (80.0-100.0); MEAN PLATELET VOLUME 10.2 fL (7.4-10.4); MONOCYTES 5.6 % (2-11); NEUTROPHILS 87.3 % (40-80); RBC 3.75 10x6/uL (4.00-5.40); RDW 16.8 % (11.5-14.5)
[2019-09-19 10:26] LABS: ALBUMIN 2.2 g/dL (3.4-5.0); ANION GAP 8.3 mmol/L (8-16); BILIRUBIN - TOTAL 0.8 mg/dL (0.2-1.3); CALCIUM 8.5 mg/dL (8.5-10.1); CARBON DIOXIDE 31.3 mmol/L (21.0-32.0); MAGNESIUM - SERUM 1.9 mg/dL (1.8-2.4); POTASSIUM - SERUM 3.6 mmol/L (3.5-5.1); PROTEIN - SERUM 7.2 g/dL (6.4-8.2)
[2019-09-19 10:27] LABS: PHOSPHOROUS 2.3 mg/dL (2.5-4.9)
[2019-09-19 10:47] LABS: WBC 3.4 10x3/uL (4.8-10.8)
[2019-09-19 10:48] LABS: PLATELET COUNT 47 10x3/uL (130-400)
--- NOTE | 2019-09-19 10:50 | NUR ---
PLATELETS 47 TODAY, UP FROM 41 YESTERDAY.
[2019-09-19 11:01] LABS: PLATELET ESTIMATE DECREASED
[2019-09-19 12:49] VITALS: BP 110/80
--- NOTE | 2019-09-19 13:32 | NUR ---
Nutrition Follow-up: Pt reports good appetite. Denies N/V/C/D, chewing/swallowing difficulties. Diet: Regular Wt: 283# (09/17); 280# (09/15 - stated) Last BM: 09/17 Labs noted: Glu 185, PO4 2.3, Alb 2.2 Meds noted: Solumedrol, Lactulose, Protonix, electrolyte protocol -Monitor Glu; may consider carb consistent diet if remains elevated. -Monitor wt; noted daily wts ordered. -RD following.
--- NOTE | 2019-09-19 16:47 | NUR ---
OT NOTE: PT COMPLETED SIDE ROLLING WITH SBA.PT COMPLETED BUE AROM AXS . PT COMPLETED FACE HYGIENE WITH SETUP. [phone] THANK YOU,JOSE MANUEL SANDOVAL
[2019-09-19 17:03] VITALS: BP 125/67
--- NOTE | 2019-09-19 19:10 | NUR ---
REPORT RECEIVED, PT CARE ASSUMED. INTRODUCED SELF AND WROTE NAME ON BOARD. PT LYING IN BED, WATCHING TV, AAOX4. REPOSITIONED FOR COMFORT, DENIES ANY OTHER NEEDS AT THIS TIME. BED IN LOWEST, SR X3, CALL LIGHT WITHIN REACH. WILL CTM.
[2019-09-19 20:30] VITALS: BP 135/68
[2019-09-20 00:30] VITALS: BP 130/86
[2019-09-20 04:30] VITALS: BP 110/69
[2019-09-20 05:24] LABS: BASOPHILS 0 % (0-2); EOSINOPHILS 0 % (0-7); HEMATOCRIT 31.3 % (36.0-48.0); HEMOGLOBIN 9.4 g/dL (12-16); IMMATURE GRANULOCYTES 0.5 % (0-5); LYMPHOCYTES 6.7 % (15-50); MCH 26.2 pg (26.0-34.0); MCV 87.2 fL (80.0-100.0); MEAN PLATELET VOLUME 9.7 fL (7.4-10.4); MONOCYTES 8.2 % (2-11); NEUTROPHILS 84.6 % (40-80); PLATELET COUNT 51 10x3/uL (130-400); RBC 3.59 10x6/uL (4.00-5.40); RDW 16.5 % (11.5-14.5); WBC 3.9 10x3/uL (4.8-10.8)
[2019-09-20 06:35] LABS: ALBUMIN 1.9 g/dL (3.4-5.0); ALKALINE PHOSPHATASE 61 U/L (30-120); ALT (SGPT) 10 U/L (10-68); BILIRUBIN - TOTAL 0.78 mg/dL (0.2-1.3); CALC OSMOLALITY 272 mosm/kg (275-300); CALCIUM 8.2 mg/dL (8.5-10.1); CARBON DIOXIDE 31.7 mmol/L (21.0-32.0); CHLORIDE - SERUM 102 mmol/L (98-107); CREATININE - SERUM 0.8 mg/dL (0.6-1.3); GLUCOSE 143 mg/dL (74-106); MAGNESIUM - SERUM 1.9 mg/dL (1.8-2.4); PHOSPHOROUS 2.1 mg/dL (2.5-4.9); POTASSIUM - SERUM 3.7 mmol/L (3.5-5.1); PROTEIN - SERUM 6.7 g/dL (6.4-8.2); SODIUM 136 mmol/L (136-145); UREA NITROGEN 9 mg/dL (7-18); eGFR NON AFRICAN AMERICAN 77 mL/min (90-120)
--- NOTE | 2019-09-20 07:30 | NUR ---
SITTING UP IN BED, RR EVEN AND UNLABORED ON 3L. EYES CLOSED. CALL LIGHT WTIHIN REACH. NO DISTRESS NOTED. BED IN LOWEST POSITION. WILL CONTINUE TO MONITOR.
[2019-09-20 08:29] VITALS: BP 132/72
[2019-09-20 13:56] VITALS: BP 131/71
--- NOTE | 2019-09-20 13:56 | NUR ---
I have reviewed this patient and I concur with the Shift Assessment completed by the Licensed Practical Nurse today this shift.
--- NOTE | 2019-09-20 14:22 | NUR ---
PT C/O URINE LEAKING FROM CATHETER. INFLATED BULB BY 2 MLS. WILL CONTINUE TO MONITOR
[2019-09-20 18:25] VITALS: BP 115/58
--- NOTE | 2019-09-20 19:05 | NUR ---
BEDSIDE REPORT RECIEVED, PT CARE ASSUMED. WROTE NAME ON BOARD. PT LYING FLAT IN BED, VISIBLY UPSET C/O "CAN'T BREATHE AND FEEL LIKE I'M JUST GETTING WORSE." 82% ON 5L NC, MOUTH BREATHING NOTED. ELEVATED HOB TO 45 DEGREES, O2 TO 6L, EXPLAINED RATIONALES FOR HOB ELEVATION, PURSED LIP BREATHING, AND TC&DB, VERBALIZED UNDERSTANDING. 91% ON 6L NC, VISIBLY MORE CALM. DENIES ANY OTHER NEEDS AT THIS TIME. BED IN LOWEST, SRX2, CALL LIGHT WITHIN REACH. WILL CTM.
[2019-09-20 20:30] VITALS: BP 125/66
[2019-09-21 00:30] VITALS: BP 136/66
[2019-09-21 04:30] VITALS: BP 145/86
[2019-09-21 06:46] LABS: BASOPHILS 0 % (0-2); EOSINOPHILS 0 % (0-7); HEMATOCRIT 32.7 % (36.0-48.0); HEMOGLOBIN 9.9 g/dL (12-16); LYMPHOCYTES 7.6 % (15-50); MCH 26.3 pg (26.0-34.0); MCHC 30.3 g/dL (31.0-37.0); MCV 86.7 fL (80.0-100.0); MEAN PLATELET VOLUME 9.4 fL (7.4-10.4); MONOCYTES 8.4 % (2-11); RBC 3.77 10x6/uL (4.00-5.40); RDW 16.7 % (11.5-14.5)
[2019-09-21 06:58] LABS: PLATELET COUNT 49 10x3/uL (130-400)
--- NOTE | 2019-09-21 07:44 | NUR ---
PT SITTING UP IN BED, RR EVEN AND UNLABORED ON 3L NC. DENIES NEEDS OR PAIN AT THIS TIME. CALL LIGHT WITHIN REACH. BED IN LOWEST POSITION. HAS WET WASH RAG ON EYES. STATES SHE THINKS SHE HAS PINK EYE BECAUSE HER EYES WERE MATTED SHUT THIS AM AND THEY ARE RED. EYES ARE SLIGHTLY PUFFY. STATED THAT IT MAY BE RELATED TO THE FAN PLACED IN HER ROOM LAST NIGHT BUT WILL RELAY TO DR WHEN THEY ROUND. VERBALIZED AGREEMENT. WILL CONTINUE TO MONITOR.
[2019-09-21 07:55] LABS: ALKALINE PHOSPHATASE 60 U/L (30-120); ALT (SGPT) 12 U/L (10-68); CALC OSMOLALITY 269 mosm/kg (275-300); CALCIUM 8.1 mg/dL (8.5-10.1); CHLORIDE - SERUM 101 mmol/L (98-107); CREATININE - SERUM 0.8 mg/dL (0.6-1.3); GLUCOSE 155 mg/dL (74-106); MAGNESIUM - SERUM 1.8 mg/dL (1.8-2.4); POTASSIUM - SERUM 3.9 mmol/L (3.5-5.1); PROTEIN - SERUM 6.5 g/dL (6.4-8.2); SODIUM 134 mmol/L (136-145); UREA NITROGEN 11 mg/dL (7-18); eGFR NON AFRICAN AMERICAN 77 mL/min (90-120)
[2019-09-21 07:56] LABS: PHOSPHOROUS 2.8 mg/dL (2.5-4.9)
[2019-09-21 08:05] LABS: PLATELET ESTIMATE DECREASED
[2019-09-21 08:48] VITALS: BP 139/82
--- NOTE | 2019-09-21 11:43 | NUR ---
I have reviewed this patient and I concur with the Shift Assessment completed by the Licensed Practical Nurse today this shift.
[2019-09-21 12:00] LABS: T4 THYROXIN - FREE 0.87 ng/dL (0.76-1.46); THYROID STIMULATING HORMONE 4.3 uIU/mL (0.36-3.74)
[2019-09-21 12:59] VITALS: BP 111/77
[2019-09-21 18:04] VITALS: BP 150/89
--- NOTE | 2019-09-21 18:50 | NUR ---
BEDSIDE REPORT RECEIVED, PT CARE ASSUMED. WROTE NAME ON BOARD. PT SITTING UP IN BED, WATCHING TV, AAOX4. REQUESTING ODILIA, PROVIDED. DENIES ANY OTHER NEEDS AT THIS TIME. BED IN LOWEST, SRX2, CALL LIGHT WITHIN REACH. WILL CTM.
[2019-09-21 20:00] VITALS: BP 117/78
[2019-09-22] VITALS: BP 145/82
[2019-09-22 04:00] VITALS: BP 114/67
[2019-09-22 06:57] LABS: BASOPHILS 0.3 % (0-2); EOSINOPHILS 0 % (0-7); HEMATOCRIT 33.3 % (36.0-48.0); HEMOGLOBIN 10.4 g/dL (12-16); IMMATURE GRANULOCYTES 1.1 % (0-5); LYMPHOCYTES 10.4 % (15-50); MCH 26.7 pg (26.0-34.0); MCHC 31.2 g/dL (31.0-37.0); MCV 85.6 fL (80.0-100.0); MEAN PLATELET VOLUME 8.8 fL (7.4-10.4); MONOCYTES 13.2 % (2-11); RBC 3.89 10x6/uL (4.00-5.40); RDW 16.3 % (11.5-14.5)
[2019-09-22 07:13] LABS: ALKALINE PHOSPHATASE 59 U/L (30-120); ALT (SGPT) 11 U/L (10-68); BILIRUBIN - TOTAL 0.69 mg/dL (0.2-1.3); CALC OSMOLALITY 269 mosm/kg (275-300); CALCIUM 8.1 mg/dL (8.5-10.1); CARBON DIOXIDE 29.2 mmol/L (21.0-32.0); CHLORIDE - SERUM 102 mmol/L (98-107); CREATININE - SERUM 0.8 mg/dL (0.6-1.3); GLUCOSE 134 mg/dL (74-106); POTASSIUM - SERUM 3.9 mmol/L (3.5-5.1); PROTEIN - SERUM 6.2 g/dL (6.4-8.2); SODIUM 134 mmol/L (136-145); UREA NITROGEN 13 mg/dL (7-18); eGFR NON AFRICAN AMERICAN 77 mL/min (90-120)
[2019-09-22 07:28] LABS: PLATELET COUNT 62 10x3/uL (130-400); WBC 6.4 10x3/uL (4.8-10.8)
--- NOTE | 2019-09-22 08:00 | NUR ---
REPORT RECEIVED. PT SITTING ON BEDSIDE. RR EVEN AND UNLABORED ON 3L NC. SHE HAS A TREVINO DRAINING NADYA COLORED URINE. SHE HAS A R CHEST PIV THAT IS CURRENTLY SL. BED LOCKED AND IN LOWEST POSITION, WILL CTM
[2019-09-22 10:37] VITALS: BP 142/81
--- NOTE | 2019-09-22 12:13 | NUR ---
DC TREVINO CATH WITH 1100 ML OF FOUL DARK NADYA COLORED URINE. PT EDUCATED ABOUT THE NEED TO TAKE THE LACTULOSE, SHE UNDERSTOOD AND TOOK MEDICATION AT THIS TIME. WILL CTM
--- NOTE | 2019-09-22 13:13 | NUR ---
OT NOTE: BED MOB WITH MIN ASSIST FOR SUPINE TO SIT; GOOD SITTING BALANCE ON EOB; SIT TO STAND WITH WALKER AND MOD ASSIST; MAX ASSIST WITH TOILET HYGIENE; MAX ASSIST TO SARAH SOCKS; ABLE TO AMB INTO HALLWAY APPROX 50 FT WITH WALKER AND 02.. PT VERY FATIGUED AND SOB..CONTINUED TO ENCOURAGE PT TO BREATH THROUGH HER NOSE..REQUIRED SEVERAL MIN TO RECOUP FROM WALK. BACK TO BED WITH MIN ASSIST. KATIE DENT, OTR/L [phone]
[2019-09-22 14:17] VITALS: BP 145/88
--- NOTE | 2019-09-22 16:40 | NUR ---
I have reviewed this patient and I concur with the Shift Assessment completed by the Licensed Practical Nurse today this shift.
--- NOTE | 2019-09-22 19:00 | NUR ---
EVENING ROUNDS COMPLETE. PT SITTING UP ON SIDE OF BED. NO SIGNS OF DISTRESS. PT DENIES ANY PAIN OR NEEDS AT THIS TIME. CL IN REACH, BED IN LOWEST POSITION.
[2019-09-22 20:00] VITALS: BP 149/70
[2019-09-23] VITALS: BP 119/71
[2019-09-23 04:00] VITALS: BP 119/68
[2019-09-23 06:41] LABS: BASOPHILS 0 % (0-2); EOSINOPHILS 0 % (0-7); HEMATOCRIT 33.4 % (36.0-48.0); HEMOGLOBIN 10.3 g/dL (12-16); IMMATURE GRANULOCYTES 1.4 % (0-5); LYMPHOCYTES 8.9 % (15-50); MCH 26.1 pg (26.0-34.0); MCHC 30.8 g/dL (31.0-37.0); MCV 84.8 fL (80.0-100.0); MEAN PLATELET VOLUME 9.6 fL (7.4-10.4); NEUTROPHILS 81.7 % (40-80); PLATELET COUNT 62 10x3/uL (130-400); RBC 3.94 10x6/uL (4.00-5.40); RDW 16.1 % (11.5-14.5)
[2019-09-23 06:47] LABS: ALBUMIN 1.9 g/dL (3.4-5.0); ALKALINE PHOSPHATASE 66 U/L (30-120); ALT (SGPT) 10 U/L (10-68); BILIRUBIN - TOTAL 0.65 mg/dL (0.2-1.3); CALC OSMOLALITY 271 mosm/kg (275-300); CALCIUM 7.6 mg/dL (8.5-10.1); CARBON DIOXIDE 26.8 mmol/L (21.0-32.0); CHLORIDE - SERUM 101 mmol/L (98-107); CREATININE - SERUM 0.7 mg/dL (0.6-1.3); GLUCOSE 149 mg/dL (74-106); MAGNESIUM - SERUM 1.8 mg/dL (1.8-2.4); PHOSPHOROUS 4.5 mg/dL (2.5-4.9); POTASSIUM - SERUM 4.5 mmol/L (3.5-5.1); SODIUM 134 mmol/L (136-145); UREA NITROGEN 14 mg/dL (7-18); eGFR NON AFRICAN AMERICAN 90 mL/min (90-120)
[2019-09-23 06:52] LABS: WBC 4.4 10x3/uL (4.8-10.8)
--- NOTE | 2019-09-23 07:51 | NUR ---
REPORT RECIEVED. PT RESTING QUIETLY WITH EYES CLOSED, RISE AND FALL OF CHEST NOTED. PT CURRENTLY WEARING BIPAP. RR EVEN AND UNLABORED. SHE HAS A R CHEST PIV THAT IS SL, SHE ALSO HAS A PEG TUBE TO THE LUQ. BED LOCKED AND IN LOWEST POSITION, CALL LIGHT WITHIN REACH. WILL CTM
[2019-09-23 09:30] VITALS: BP 150/92
[2019-09-23 11:07] LABS: PLATELET ESTIMATE DECREASED; PLATELET MORPHOLOGY NORMAL PLT MORPH
[2019-09-23 11:52] VITALS: BP 126/87
--- NOTE | 2019-09-23 13:57 | NUR ---
Nutrition Follow-up: Good/fair PO intake. Ate 100% this AM. Diet: Regular PO intake: 50-100% No new wt; last wt: 283# (09/17) Last BM: 09/21 Labs noted: Na 134, Ca 7.6, Alb 1.9 Meds noted: Solumedrol, Lactulose, Protonix -Encourage PO intake and honor food preferences within diet restrictions. -Monitor wt; noted daily wts ordered. -RD following.
--- NOTE | 2019-09-23 14:11 | NUR ---
CHARTED PT ASSESSMENT TODAY UNDER ICU SHIFT ASSESSMENT.
--- NOTE | 2019-09-23 15:44 | NUR ---
I have reviewed this patient and I concur with the Shift Assessment completed by the Licensed Practical Nurse today this shift.
--- NOTE | 2019-09-23 16:12 | NUR ---
Rehab Note- Continue to follow at this time. Has a Cardiac consult at this time. Thank you for this referral! Lois Palomino RN Clinical Liaison, [facility] Rehab
--- NOTE | 2019-09-23 17:11 | NUR ---
OT NOTE: PT COMPLETED SUPINE TO SIT WITH MOD A. PT COMPLETED SITTING AT EOB WITH SBA. PT IS SOB. PT COMPLETED SIT TO STAND WITH MIN A. PT COMPLETED ADL MOB WITH CGA/MIN A. PT FOUND IT DIFFICULT TO WALK SHORT DISTANCE. HOWEVER, THIS IS AN IMPROVEMENT FROM PREVIOUS SESSIONS. [phone] THANK YOU,JOSE MANUEL SANDOVAL
[2019-09-23 17:47] VITALS: BP 139/81
--- NOTE | 2019-09-23 19:05 | NUR ---
REPORT RECEIVED, WILL CONTINUE POC. PATIENT IS AAOX4, LYING IN SEMI-FOWLERS POSTIION. NO S/S OF DISTRESS OBSERVED, RR EVEN AND UNLABORED ON ROOM AIR. PIV TO LT CHEST, SL. PATIENT DENIES NEEDS AT THIS TIME. CL IN REACH, BED LOCKED AND LOWERED. WILL CTM.
[2019-09-23 20:00] VITALS: BP 154/101
[2019-09-24] VITALS: BP 127/84
[2019-09-24 04:00] VITALS: BP 152/86
[2019-09-24 06:38] LABS: BASOPHILS 0.2 % (0-2); EOSINOPHILS 0 % (0-7); HEMATOCRIT 32.9 % (36.0-48.0); HEMOGLOBIN 10.3 g/dL (12-16); IMMATURE GRANULOCYTES 0.4 % (0-5); LYMPHOCYTES 8.4 % (15-50); MCH 26.3 pg (26.0-34.0); MCHC 31.3 g/dL (31.0-37.0); MCV 83.9 fL (80.0-100.0); MEAN PLATELET VOLUME 9.6 fL (7.4-10.4); MONOCYTES 5.3 % (2-11); NEUTROPHILS 85.7 % (40-80); PLATELET COUNT 74 10x3/uL (130-400); RBC 3.92 10x6/uL (4.00-5.40); RDW 16.2 % (11.5-14.5); WBC 5.1 10x3/uL (4.8-10.8)
[2019-09-24 07:02] LABS: ALKALINE PHOSPHATASE 64 U/L (30-120); BILIRUBIN - TOTAL 0.55 mg/dL (0.2-1.3); CALC OSMOLALITY 268 mosm/kg (275-300); CALCIUM 7.8 mg/dL (8.5-10.1); CARBON DIOXIDE 29.1 mmol/L (21.0-32.0); CHLORIDE - SERUM 100 mmol/L (98-107); CREATININE - SERUM 0.7 mg/dL (0.6-1.3); GLUCOSE 147 mg/dL (74-106); MAGNESIUM - SERUM 1.9 mg/dL (1.8-2.4); POTASSIUM - SERUM 4.4 mmol/L (3.5-5.1); PROTEIN - SERUM 6.2 g/dL (6.4-8.2); SODIUM 132 mmol/L (136-145); UREA NITROGEN 15 mg/dL (7-18); eGFR NON AFRICAN AMERICAN 90 mL/min (90-120)
[2019-09-24 07:03] LABS: ALT (SGPT) 7 U/L (10-68)
--- NOTE | 2019-09-24 08:00 | NUR ---
PT RECEIVED AWAKE IN BED. NO COMPLAINTS AT PRESENT. OXYGEN IN USE, BIPAP JUST REMOVED AT SHIFT CHANGE.
[2019-09-24 09:25] VITALS: BP 148/93
[2019-09-24 13:15] VITALS: BP 132/76
--- NOTE | 2019-09-24 16:36 | NUR ---
OT NOTE: (AM) PT COMPLETED STANDING BALANCE WITH CGA. PT COMPLETED ADL MOB WITH RW REQUIRED MIN A/CGA. PT COMPLETED FACE HYGIENE AT EOB WITH SETUP. (PM) PT COMPLETED TOILETING TASK WITH MOD A TO SARAH UNDERGARMENT AND SBA FOR HYGIENE. PT COMPLETED ADL MOB WITH CGA. PTS AX TOLERANCE IS IMPROVING . HOWEVER, PT IS EASILY FATIGUED WITH DAILY ADL TASKS. [phone] THANK YOU,JOSE MANUEL SANDOVAL
[2019-09-24 17:26] VITALS: BP 145/82
[2019-09-24 20:00] VITALS: BP 149/79
--- NOTE | 2019-09-24 22:41 | NUR ---
PIV TO LEFT CHEST LEAKING JUST AFTER ROCEPHIN WAS STARTED. WILL ATTEMPT TO RESITE IV.
--- NOTE | 2019-09-24 22:49 | NUR ---
PIV TO LT WRIST WITH 20G X2 ATTEMPTS. ROCEPHIN RESTARTED.
[2019-09-25] VITALS: BP 126/69
--- NOTE | 2019-09-25 03:34 | NUR ---
PATIENT O2 89% ON 4L VIA NC. STILL SHAKING AND C/O BEING HOT AND NOT ABLE TO BREATH. RESPIRATORY PLACE PATIENT ON 6L HFNC. PATIENT O2 NOW 96%
[2019-09-25 04:00] VITALS: BP 165/97
[2019-09-25 07:41] LABS: BASOPHILS 0 % (0-2); EOSINOPHILS 0 % (0-7); HEMATOCRIT 34.3 % (36.0-48.0); HEMOGLOBIN 10.5 g/dL (12-16); IMMATURE GRANULOCYTES 0.8 % (0-5); LYMPHOCYTES 7.4 % (15-50); MCH 25.2 pg (26.0-34.0); MCHC 30.6 g/dL (31.0-37.0); MCV 82.5 fL (80.0-100.0); MEAN PLATELET VOLUME 9.7 fL (7.4-10.4); MONOCYTES 5.7 % (2-11); NEUTROPHILS 86.1 % (40-80); RBC 4.16 10x6/uL (4.00-5.40); RDW 16.1 % (11.5-14.5)
[2019-09-25 07:44] LABS: PLATELET COUNT 93 10x3/uL (130-400); WBC 7.6 10x3/uL (4.8-10.8)
[2019-09-25 07:58] LABS: ALKALINE PHOSPHATASE 69 U/L (30-120); BILIRUBIN - TOTAL 0.64 mg/dL (0.2-1.3); CARBON DIOXIDE 29.4 mmol/L (21.0-32.0); CHLORIDE - SERUM 100 mmol/L (98-107); CREATININE - SERUM 0.8 mg/dL (0.6-1.3); GLUCOSE 146 mg/dL (74-106); POTASSIUM - SERUM 4.5 mmol/L (3.5-5.1); PROTEIN - SERUM 6.1 g/dL (6.4-8.2); SODIUM 131 mmol/L (136-145); eGFR NON AFRICAN AMERICAN 77 mL/min (90-120)
--- NOTE | 2019-09-25 08:17 | CN ---
PATIENT NAME:ELIZABETH DENTON MEDICAL RECORD: [id number] : 57 LOCATION:D. D.2138 ADMIT DATE: 09/16/19 ACCOUNT: [id number] CONSULTING PHYSICIAN: CAMDEN LEE MD REFERRING PHYSICIAN: JANNET HAIRSTON MD DATE OF CONSULTATION: 09/23/2019 HISTORY OF PRESENT ILLNESS: A 64-year-old female with no known history of coronary artery disease, history of hepatitis C and cirrhosis, admitted with respiratory distress as well as mental status changes noted to have elevated ammonia level. Subsequently found to have atrial fibrillation with RVR. We are asked to see her concerning her cardiovascular status. She was previously hospitalized over this year with respiratory failure and that was in [facility] as well. PAST MEDICAL HISTORY: 1. History of seizure disorder. 2. Obstructive sleep apnea. 3. Obstructive pulmonary disease. 4. Hypertension. 5. Hepatic encephalopathy. 6. Status post PEG. ALLERGIES: PENICILLIN. HOME MEDICATIONS: Typically include rifaximin 550 mg p.o. b.i.d., metoprolol 25 b.i.d., lactulose 30 b.i.d., Lasix 80 b.i.d., potassium 40 mEq p.o. b.i.d., and Zofran 4 mg p.o. q. p.r.n. SOCIAL HISTORY: Currently, nonsmoker and nondrinker. REVIEW OF SYSTEMS: The patient reports easy bruising but reports no swollen glands. The patient reports no fever, no night sweats, no significant weight gain, no significant weight loss. No significant exercise tolerance. The patient reports no dry eyes, no irritation, no vision change. Patient reports no difficulty hearing and no ear pain. Patient reports no frequent nose bleeds or nose and sinus problems. Patient reports on arm pain on exertion. No shortness of breath while lying down. No history of heart murmur. Patient reports no cough, no wheezing or coughing up blood. Patient reports no abdominal pain, no vomiting. Normal appetite. No diarrhea and not vomiting blood. No nausea and no constipation. Patient reports no incontinence. No difficulty urinating. No hematuria. No increased frequency. Patient reports no muscle aches. No weakness, no arthralgias, no back pain. No swelling of the extremities. Patient reports no abnormal mole, no jaundice, no rashes. Reports no loss of consciousness. No weakness and no numbness. No seizures, dizziness, or headaches. The patient reports no depression, no sleep disturbance, feeling safe in a relationship and no alcohol abuse. Patient reports on fatigue. Reports no runny nose or sinus pressure. No itching, no hives, and no frequent sneezing. PHYSICAL EXAMINATION: GENERAL: Chronically ill appearing in no acute distress. VITAL SIGNS: Pulse 96 and regular, blood pressure 126/87. HEENT: Normocephalic, atraumatic. NECK: No JVD or bruit. CONSULT REPORT [id number] CORRIEELIZABETH BRITT HEART: Irregular, rate is controlled, II/ systolic ejection murmur. LUNGS: Fairly good air excursion. Few expiratory wheezes. ABDOMEN: Soft, nontender. EXTREMITIES: Pulses 2+ with no edema. IMPRESSION: AFib, obviously given underlying liver disease, multiple comorbidities, not a good candidate for anticoagulation. We will start propafenone 225 t.i.d., could consider ELSA cardioversion if it does not convert. Further recommendations based on above. TRANSINT:[id number] Voice Confirmation ID: [id number] DOCUMENT ID: [id number] CAMDEN LEE MD at 0817 CC: [id number] DICTATION DATE: 09/23/19 162 BUSINESS LINE MANAGER: 09/24/19 0144 ADM IN [facility] [address] [place] [address]
[2019-09-25 08:19] LABS: ALT (SGPT) 18 U/L (10-68); CALC OSMOLALITY 267 mosm/kg (275-300); UREA NITROGEN 18 mg/dL (7-18)
[2019-09-25 08:25] VITALS: BP 151/78
[2019-09-25 09:49] LABS: PLATELET ESTIMATE DECREASED
[2019-09-25 09:50] LABS: ANISOCYTOSIS OCC; HYPOCHROMASIA OCC
--- NOTE | 2019-09-25 14:34 | NUR ---
PT REFUSED LACTULOSE THIS AM, ALONG WITH BOTH DOSES 09/24/19. BSC WITHIN TWO STEPS OF BED. PT ASKS FOR ASSISSTANCE TO TAKE THE TWO STEPS. PT REFUSES TO WALK TO THE BSC OFTEN CLAIMING THAT SHE WAS JUST TOO LATE AND REQUESTS FOR STAFF TO CLEAN HER UP.
[2019-09-25 15:38] VITALS: BP 127/67
--- NOTE | 2019-09-25 16:08 | MORECARE ---
CASE MANAGEMENT DISCHARGE SUMMARY PATIENT: ELIZABETH DENTON UNIT: [id number] ADM DATE: 09/16/19 AGE: 64 : 57 SEX: F ROOM/BED: D.7079 AUTHOR: AURELIA,DOC PHYSICIAN: REFERRING PHYSICIAN: JANNET HAIRSTON MD DATE OF SERVICE: 09/25/19 Discharge Plan Patient Name: ELIZABETH DENTON Facility: [facility]:[place] : 1955 Planned Disposition: Anticipated Discharge Date: Discharge Date: Expected LOS: Initial Reviewer: [email or web address] Initial Review Date: 09/18/2019 Generated: 09/25/19 5:07 pm DCP- Discharge Planning Updated by [email or web address]: Ele Grimes on 09/18/19 11:[address] Patient Name: ELIZABETH DENTON Admission Status: ER Accout number: [id number] Admission Date: 09-16-2019 : 1955 Admission Diagnosis:ACUTE AND CHRONIC RESPIRATORY FAILURE WITH HYPERCAPNIA Attending: JANNET HAIRSTON Current LOS: 2 Anticipated DC Date: Planned Disposition: Primary Insurance: [place] PRIVATE OPTIONS [place] Discharge Planning Comments: CM MET WITH PATIENT ABOUT DC PLANNING/NEEDS. SHE STATES SHE WILL NEED REHAB BEFORE GOING HOME. YARA SIGNED FOR IPR AT [facility]. I TALKED WITH HER ABOUT INTERMEDIATE FACILITIES BUT SHE IS NOT WANTING TO DISCUSS THAT AT THIS TIME. PATIENT WILL POSSIBLY BE TRANSFERED TO THE FLOOR TODAY. CM WILL FOLLOW AND ASSIST NEEDED. Marina Sales And Service Supervisor: Ele Grimes Appended by Ele Grimes on 09/18/2019 12:06 CDT: OT AND REHAB ORDER PLACED ON PATIENT TODAY. DCPIA - Discharge Planning Initial Assessment Updated by [id number]: Ele Grimes on 09/18/19 12:00 pm * Is the patient Alert and Oriented? Yes * PCP [place] * [facility] * Preadmission Environment Home with Family * List name and contact numbers for known caregivers / representatives who currently or will assist patient after discharge: AMBIKA TREVINO * Community resources currently utilized Home Health * Please name any agencies selected above. [facility] * Additional services required to return to the preadmission environment? Yes * Can the patient safely return to the preadmission environment? No * Has this patient been hospitalized within the prior 30 days at any hospital? Yes Coverage Notice Reviewer: [id number] Leonel Grimes Notice Issued Date-Time: 09/18/2019 12:02 Notice Type: Patient Choice Letter Notice Delivered To: Patient Relationship to Patient: Manager Environmental Health Name: Delivery Method: HAND - Hand Delivered Vilma Days: Prior Verbal Notification: Recipient Understood Notice: Yes Recipient Signature: Yes Med Rec Note Co-signed by Attending: Coverage Notice Comment: [facility] Last DP export: 09/18/19 11:20 a Patient Name: ELIZABETH DENTON Page [phone] at 1608 All edits/amendments must be made on the electronic document DICTATION DATE: 09/25/191606 LOADER TECHNICIAN: YORDY 09/25/191606 RPT#: [id number] DC DATE: STATUS: ADM IN [facility] [address] [place] [address] END OF REPORT
--- NOTE | 2019-09-25 19:29 | NUR ---
REPORT RECEIVED, WILL CONTINUE POC. PATIENT IS AAOX4, SITTING UP TO SIDE OF BED. PATIENT EMOTIONAL ABOUT BEING SENT TO "[facility]" DAYSHIFT NURSE MAXIMILIANO KINNEY EXPLAINED TO PATIENT THAT SHE'S GOING FOR REHAB AND TO GET STRONGER. PATIENT CALMED DOWN. NO S/S OF DISTRESS OBSERVED, RR EVEN AND UNLABORED ON 3L O2 VIA NC. PATIENT DENIES NEEDS AT THIS TIME. CL IN REACH, BED LOCKED AND LOWERED. WILL CTM.
[2019-09-25 20:00] VITALS: BP 135/66
[2019-09-26] VITALS: BP 154/71
--- NOTE | 2019-09-26 01:41 | NUR ---
I have reviewed this patient and I concur with the Shift Assessment completed by the Licensed Practical Nurse today this shift.
[2019-09-26 04:00] VITALS: BP 136/79
[2019-09-26 06:05] LABS: ALBUMIN 2.2 g/dL (3.4-5.0); ANION GAP 6.6 mmol/L (8-16); BILIRUBIN - TOTAL 0.71 mg/dL (0.2-1.3); CARBON DIOXIDE 30.7 mmol/L (21.0-32.0); CREATININE - SERUM 0.9 mg/dL (0.6-1.3); POTASSIUM - SERUM 4.3 mmol/L (3.5-5.1); PROTEIN - SERUM 6.3 g/dL (6.4-8.2)
[2019-09-26 07:18] LABS: BASOPHILS 0 % (0-2); EOSINOPHILS 0 % (0-7); HEMATOCRIT 34.2 % (36.0-48.0); HEMOGLOBIN 10.5 g/dL (12-16); IMMATURE GRANULOCYTES 0.7 % (0-5); MCH 25.7 pg (26.0-34.0); MCHC 30.7 g/dL (31.0-37.0); MCV 83.8 fL (80.0-100.0); MEAN PLATELET VOLUME 9.7 fL (7.4-10.4); MONOCYTES 8.9 % (2-11); NEUTROPHILS 82.4 % (40-80); RBC 4.08 10x6/uL (4.00-5.40); RDW 16.4 % (11.5-14.5); WBC 5.9 10x3/uL (4.8-10.8)
[2019-09-26 07:22] LABS: PLATELET COUNT 87 10x3/uL (130-400)
[2019-09-26 08:42] VITALS: BP 174/89
--- NOTE | 2019-09-26 09:18 | MORECARE ---
CASE MANAGEMENT DISCHARGE SUMMARY PATIENT: ELIZABETH DENTON UNIT: [id number] ADM DATE: 09/16/19 AGE: 64 : 57 SEX: F ROOM/BED: D.1615 AUTHOR: AURELIA,DOC PHYSICIAN: REFERRING PHYSICIAN: JANNET HAIRSTON MD DATE OF SERVICE: 09/26/19 Discharge Plan Patient Name: ELIZABETH DENTON Facility: [facility]:[place] : 1955 Planned Disposition: Anticipated Discharge Date: Discharge Date: Expected LOS: Initial Reviewer: [email or web address] Initial Review Date: 09/18/2019 Generated: 09/26/19 10:17 am DCP- Discharge Planning Updated by [email or web address]: Ele Grimes on 09/18/19 11:[address] Patient Name: ELIZABETH DENTON Admission Status: ER Accout number: [id number] Admission Date: 09-16-2019 : 1955 Admission Diagnosis:ACUTE AND CHRONIC RESPIRATORY FAILURE WITH HYPERCAPNIA Attending: JANNET HAIRSTON Current LOS: 2 Anticipated DC Date: Planned Disposition: Primary Insurance: [place] PRIVATE OPTIONS [place] Discharge Planning Comments: CM MET WITH PATIENT ABOUT DC PLANNING/NEEDS. SHE STATES SHE WILL NEED REHAB BEFORE GOING HOME. YARA SIGNED FOR IPR AT [facility]. I TALKED WITH HER ABOUT CUSTODIAL FACILITIES BUT SHE IS NOT WANTING TO DISCUSS THAT AT THIS TIME. PATIENT WILL POSSIBLY BE TRANSFERED TO THE FLOOR TODAY. CM WILL FOLLOW AND ASSIST NEEDED. Biochemical Development Engineer: Ele Grimes Appended by Ele Grimes on 09/18/2019 12:06 CDT: OT AND REHAB ORDER PLACED ON PATIENT TODAY. DCPIA - Discharge Planning Initial Assessment Updated by [id number]: Ele Grimes on 09/18/19 12:00 pm * Is the patient Alert and Oriented? Yes * PCP [place] * [facility] * Preadmission Environment Home with Family * List name and contact numbers for known caregivers / representatives who currently or will assist patient after discharge: AMBIKA TREVINO * Community resources currently utilized Home Health * Please name any agencies selected above. [facility] * Additional services required to return to the preadmission environment? Yes * Can the patient safely return to the preadmission environment? No * Has this patient been hospitalized within the prior 30 days at any hospital? Yes Coverage Notice Reviewer: [id number] Leonel Grimes Notice Issued Date-Time: 09/18/2019 12:02 Notice Type: Patient Choice Letter Notice Delivered To: Patient Relationship to Patient: Disability Hearing Officer Name: Delivery Method: HAND - Hand Delivered Vilma Days: Prior Verbal Notification: Recipient Understood Notice: Yes Recipient Signature: Yes Med Rec Note Co-signed by Attending: Coverage Notice Comment: [facility] Last DP export: 09/25/19 3:08 p Patient Name: ELIZABETH DENTON Page [phone] at 0918 All edits/amendments must be made on the electronic document DICTATION DATE: 09/26/19916 ANALYST BUSINESS ANALYSIS: YORDY 09/26/19916 RPT#: [id number] DC DATE: STATUS: ADM IN [facility] [address] [place] [address] END OF REPORT
--- NOTE | 2019-09-26 10:29 | NUR ---
PT WET THROUGH DEPENDS THIS MORNING ON ASSESSMENT. STANDBY FOR TRANSFER TO BS WHERE SHE CLEANED HERSELF AND CHANGED DEPENDS. THEN SAT ON SIDE OF BED FOR BREAKFAST.
--- NOTE | 2019-09-26 12:12 | TEE ---
PATIENT:ELIZABETH DENTON MEDICAL RECORD: [id number] LOCATION:D. D.213 AGE OF PATIENT: 64 ADMISSION DATE: 09/16/19 SEX: F REFERRING PHYSICIAN: INTERPRETING PHYSICIAN: CAMDEN LEE MD TRANSESOPHAGEAL ECHOCARDIOGRAM Date: 09/25/19 ELSA CHARGE Y INDICATIONS: ATRIAL FLUTTER, ASSESS FOR CLOTS PREMEDICATIONS: PATIENT'S RESPONSE PROCEDURE DOPPLER MEASUREMENTS: LVIT LA PA 119 RA LVOT 109 RVOT 61.0 Asc. Ao 130 AV Gradient Peak 6.8 AV Mean 3.8 AV Area 2.8 MV Gradient Peak 7.7 MV Mean 2.8 MV Area INTERPRETATION: Doppler: 2-D: COLOR FLOW DOPPLER NORMAL SALINE STUDY: MISCELLANOUS: DIAGNOSIS: PLAN: [employer] Cook:3 Dr. Nova Milk Tanker Driver: Aracelis RIVERO COMMENTS: DATE OF SERVICE: 09/25/2019 TRANSESOPHAGEAL NOTE DESCRIPTION OF PROCEDURE: After general sedation via TIVA via anesthesia, transesophageal Omniplane probe was placed in the esophagus and proximal stomach without difficulty. FINDINGS: LVH is present. LV internal dimensions are normal. Wall motion is TRANSESOPHAGEAL ECHOCARDIOGRAM REPORT [id number] ELIZABETH DENTON normal. EF is greater than or equal to 55%. Aortic valve is tricuspid with good valve excursion. There is mild AI by color flow imaging. Left atrium appendage appears mildly dilated. Left atrial appendage is well visualized with no evidence of thrombus and good contractility via Doppler interrogation. Right-sided chambers appear normal. There is a mild TR with color flow imaging. At the end of procedure, transesophageal Omniplane probe was first turned posteriorly and this showed minimal atherosclerotic debris in the descending aorta. TRANSINT:[id number] Voice Confirmation ID: [id number] DOCUMENT ID: [id number] at 1212 CC: [id number] DICTATION DATE: 09/25/19 1436 INTERNAL CARVER: 09/26/19 0945 ADM IN [facility] [address] [place] [id number]
--- NOTE | 2019-09-26 12:12 | OP ---
PATIENT NAME: [place] DENTON MEDICAL RECORD: [id number] :57 LOCATION:D.M2 D.2138 ADMISSION DATE:09/16/19 SURGEON: CAMDEN ELE MD DATE OF OPERATION: 09/25/2019 PROCEDURE: Cardioversion. DESCRIPTION OF PROCEDURE: After general sedation via TIVA via anesthesia, a single synchronized shock at 200 joules was successful in restoring atrial fibrillation to normal sinus rhythm. IMPRESSION: Successful cardioversion on [place]. During the procedure, the patient was monitored continuously with pulse oximetry, telemetry and blood pressure monitoring. TRANSINT:[id number] Voice Confirmation ID: [id number] DOCUMENT ID: [id number] CAMDEN LEE MD at 1212 CC: [id number] DICTATION DATE: 09/25/19 1437 CLAIMS ADJUSTER CROP: 09/25/19 2206 ADM IN [facility] [address] [place] [address]
--- NOTE | 2019-09-26 13:00 | NUR ---
Nutrition Follow-up: Eating well. Ate ~75% of breakfast this AM. Denies N/V/C/D. Noted pt refusing Lactulose. Assisted pt in filling out menu this AM. Diet: Regular Wt: 286# (09/25); 283# (09/23); 280# (09/15) Last BM: 09/24 Labs noted: Na 130, Glu 146, Ca 8.0, Alb 2.2 Meds noted: Protonix, Solumedrol, electrolyte protocol -Monitor wt; noted daily wts ordered. -RD following.
[2019-09-26 13:21] VITALS: BP 153/69
--- NOTE | 2019-09-26 16:53 | NUR ---
OT NOTE: (AM) PT COMPLETED FACE AND HAND HYGIENE WITH SETUP. PT COMPLETED BED MOB WITH SBA. (PM) PT COMPLETED SUPINE TO SIT WITH SBA. PT COMPLETED SITTING BALANCE ACTIVITIES WITH SPV. PT COMPLETED UE AROM EXS AT EOB WITH SBA. [phone] THANK YOU,JOSE MANUEL SANDOVAL
--- NOTE | 2019-09-26 17:21 | NUR ---
PT FOUND TO HAVE IV PULLED OUT. VERY HARD STICK, MULTIPLE TRIES PRIOR. WILL SEE IF VASCULAR NURSE OR ICU AVAILABLE TO STICK.
[2019-09-26 17:31] VITALS: BP 145/77
[2019-09-26 20:30] VITALS: BP 182/92
[2019-09-27 00:30] VITALS: BP 148/66
[2019-09-27 04:30] VITALS: BP 144/59
[2019-09-27 08:27] LABS: BASOPHILS 0 % (0-2); EOSINOPHILS 0.1 % (0-7); HEMATOCRIT 35.3 % (36.0-48.0); HEMOGLOBIN 10.9 g/dL (12-16); IMMATURE GRANULOCYTES 0.6 % (0-5); LYMPHOCYTES 9.6 % (15-50); MCH 25.7 pg (26.0-34.0); MCHC 30.9 g/dL (31.0-37.0); MCV 83.3 fL (80.0-100.0); MEAN PLATELET VOLUME 9.6 fL (7.4-10.4); MONOCYTES 15.7 % (2-11); PLATELET COUNT 96 10x3/uL (130-400); RBC 4.24 10x6/uL (4.00-5.40); RDW 16.3 % (11.5-14.5)
[2019-09-27 08:32] LABS: WBC 7.9 10x3/uL (4.8-10.8)
[2019-09-27 08:47] LABS: ALBUMIN 2.2 g/dL (3.4-5.0); ALKALINE PHOSPHATASE 65 U/L (30-120); ALT (SGPT) 21 U/L (10-68); BILIRUBIN - TOTAL 0.83 mg/dL (0.2-1.3); CALC OSMOLALITY 258 mosm/kg (275-300); CALCIUM 7.8 mg/dL (8.5-10.1); CARBON DIOXIDE 26.1 mmol/L (21.0-32.0); CHLORIDE - SERUM 97 mmol/L (98-107); CREATININE - SERUM 0.8 mg/dL (0.6-1.3); GLUCOSE 129 mg/dL (74-106); POTASSIUM - SERUM 3.8 mmol/L (3.5-5.1); PROTEIN - SERUM 6.2 g/dL (6.4-8.2); SODIUM 127 mmol/L (136-145); UREA NITROGEN 17 mg/dL (7-18); eGFR NON AFRICAN AMERICAN 77 mL/min (90-120)
--- NOTE | 2019-09-27 10:03 | NUR ---
PT LAYING SUPINE, RR EVEN AND LABORED UPON EXERTION ON 2L NC. DENIES NEEDS OR PAIN AT THIS TIME. CALL LIGHT WITHIN REACH. BED IN LOWEST POSITION. WILL CONTINUE TO MONITOR.
[2019-09-27 10:14] VITALS: BP 143/85
[2019-09-27 14:22] VITALS: BP 136/69
--- NOTE | 2019-09-27 19:00 | NUR ---
BEDSIDE REPORT RECIEVED, PT CARE ASSUMED. WROTE NAME ON BOARD. PT LYING IN BED, WATCHING TV, AAOX4. DENIES ANY NEEDS AT THIS TIME. BED IN LOWEST, SRX2, CALL LIGHT WITHIN REACH. WILL CTM.
[2019-09-27 20:00] VITALS: BP 139/78
[2019-09-28 00:30] VITALS: BP 139/63
[2019-09-28 04:30] VITALS: BP 174/88
[2019-09-28 07:49] LABS: ALBUMIN 2.2 g/dL (3.4-5.0); ANION GAP 7.5 mmol/L (8-16); BILIRUBIN - TOTAL 0.9 mg/dL (0.2-1.3); CALCIUM 7.6 mg/dL (8.5-10.1); CARBON DIOXIDE 28.6 mmol/L (21.0-32.0); CREATININE - SERUM 0.9 mg/dL (0.6-1.3); POTASSIUM - SERUM 4.1 mmol/L (3.5-5.1); PROTEIN - SERUM 5.9 g/dL (6.4-8.2)
[2019-09-28 08:22] VITALS: BP 186/94
[2019-09-28 12:17] VITALS: BP 141/66
[2019-09-28 13:40] LABS: BASOPHILS 0.1 % (0-2); EOSINOPHILS 0.4 % (0-7); HEMATOCRIT 32.2 % (36.0-48.0); HEMOGLOBIN 10.1 g/dL (12-16); IMMATURE GRANULOCYTES 0.9 % (0-5); LYMPHOCYTES 9.1 % (15-50); MCHC 31.4 g/dL (31.0-37.0); MCV 82.8 fL (80.0-100.0); MEAN PLATELET VOLUME 9.5 fL (7.4-10.4); MONOCYTES 9.4 % (2-11); NEUTROPHILS 80.1 % (40-80); PLATELET COUNT 80 10x3/uL (130-400); RBC 3.89 10x6/uL (4.00-5.40); RDW 16.5 % (11.5-14.5); WBC 6.7 10x3/uL (4.8-10.8)
[2019-09-28 14:10] LABS: PLATELET ESTIMATE DECREASED
[2019-09-28 15:45] VITALS: BP 148/81
[2019-09-28 20:30] VITALS: BP 147/66
[2019-09-29 00:30] VITALS: BP 152/70
--- NOTE | 2019-09-29 02:38 | NUR ---
INITIAL ROUNDS COMPLETED AT 1914 HRS. RT TX IN PROGRESS. DENIED ANY DISCOMFORT. ASSESSMENT COMPLETD AT 2034 HRS. VSS. A-FLUTTER PER CM HR 67. ALERT AND ORIENTED TO PERSON,PLACE AND TIME. HAINES. NO IV ACCESS. BRUISES NOTED TO BILAT ARMS. GENERALIZED EDEMA NOTED. LUNGS DIMINISHED IN BASES BILAT. O2 2LNC. PT UP TO BSC WITH MINIMAL ASSISTANCE. PM MEDS GIVEN PER ORDERS. PT CURRENTLY RESTING WITH EYES CLOSED. RESP EVEN AND REGULAR. SR UP X2,CALL LIGHT WITHIN REACH AND BIPAP IN USE.
--- NOTE | 2019-09-29 03:31 | NUR ---
PT RESTING WITH EYES CLOSED. RESP EVEN AND REGULAR. SR UP X2, CALL LIGHT WITHIN REACH AND BIPAP IN USE.
[2019-09-29 04:30] VITALS: BP 148/67
--- NOTE | 2019-09-29 06:06 | NUR ---
VSS THROUGHOUT NIGHT. A-FLUTTER/SR PER CM. PT DENIED ANY DISCOMFORT. RESTED WELL DURING SHIFT. NEEDS MET; WILL CONTINUE TO MONITOR.
[2019-09-29 06:37] LABS: BASOPHILS 0 % (0-2); EOSINOPHILS 0.2 % (0-7); HEMATOCRIT 30.8 % (36.0-48.0); HEMOGLOBIN 9.7 g/dL (12-16); IMMATURE GRANULOCYTES 0.5 % (0-5); LYMPHOCYTES 8.5 % (15-50); MCH 25.9 pg (26.0-34.0); MCHC 31.5 g/dL (31.0-37.0); MCV 82.4 fL (80.0-100.0); MEAN PLATELET VOLUME 9.9 fL (7.4-10.4); MONOCYTES 7.7 % (2-11); NEUTROPHILS 83.1 % (40-80); RBC 3.74 10x6/uL (4.00-5.40); RDW 16.6 % (11.5-14.5); WBC 6.6 10x3/uL (4.8-10.8)
[2019-09-29 06:38] LABS: PLATELET COUNT 61 10x3/uL (130-400)
[2019-09-29 07:04] LABS: ALBUMIN 2.1 g/dL (3.4-5.0); ALKALINE PHOSPHATASE 68 U/L (30-120); ALT (SGPT) 20 U/L (10-68); BILIRUBIN - TOTAL 0.74 mg/dL (0.2-1.3); CALC OSMOLALITY 270 mosm/kg (275-300); CALCIUM 7.5 mg/dL (8.5-10.1); CARBON DIOXIDE 28.9 mmol/L (21.0-32.0); CHLORIDE - SERUM 102 mmol/L (98-107); GLUCOSE 96 mg/dL (74-106); POTASSIUM - SERUM 3.9 mmol/L (3.5-5.1); PROTEIN - SERUM 5.6 g/dL (6.4-8.2); SODIUM 135 mmol/L (136-145); UREA NITROGEN 14 mg/dL (7-18)
[2019-09-29 07:07] LABS: CREATININE - SERUM 0.6 mg/dL (0.6-1.3); eGFR NON AFRICAN AMERICAN > 90 mL/min (90-120)
--- NOTE | 2019-09-29 07:48 | MORECARE ---
CASE MANAGEMENT DISCHARGE SUMMARY PATIENT: ELIZABETH DENTON UNIT: [id number] ADM DATE: 09/16/19 AGE: 64 : 57 SEX: F ROOM/BED: D.7956 AUTHOR: JOLEEN MOSES PHYSICIAN: REFERRING PHYSICIAN: JANNET HAIRSTON MD DATE OF SERVICE: 09/29/19 Discharge Plan Patient Name: ELIZABETH DENTON Facility: [facility]:[place] : 1955 Planned Disposition: Anticipated Discharge Date: Discharge Date: Expected LOS: Initial Reviewer: [id number] Initial Review Date: 09/18/2019 Generated: 09/29/19 8:48 am Comments DCP- Discharge Planning Updated by [email or web address]: Amee Mario on 09/29/19 6:[address] Patient Name: ELIZABETH DENTON Encounter No: [id number] : 1955 Primary Insurance: [facility] PRIVATE OPTIONS TALITA Anticipated DC Date: Planned Disposition: External Planned Provider: : late entry- assessment 09/26/19 DCP follow-up note: Staci from [facility] called and stated pt is being followed by APS. CM called APS to for follow up- , and social worker aide is [phone]. Helene stated he has been following patient since May. Stated the home environment where she was prior to admission was unsafe. Stated she needed to have a home to go to after dc, or they would find her placement in a NH. Spoke with pt about dc plan. Patient stated she can go and live with her sister Ambika Garrett ([phone]. Cm spoke with Ambika. Ambika has agreed to allow pt to live with her if she can care for herself. CM spoke with nursing, who stated the patient is requiring less assistance in using the bedside commode and cleaning herself. Patient will need IP rehab, then move in with her sister. Patient and family in agreement with discharge plan. Case management will follow and assist as needed. Amee Mario DCP- Discharge Planning Updated by [id number]: Ele Grimes on 09/18/19 11:[address] Patient Name: ELIZABETH DENTON Admission Status: ER Accout number: [id number] Admission Date: 09-16-2019 : 1955 Admission Diagnosis:ACUTE AND CHRONIC RESPIRATORY FAILURE WITH HYPERCAPNIA Attending: JANNET HAIRSTON Current LOS: 2 Anticipated DC Date: Planned Disposition: Primary Insurance: [place] PRIVATE OPTIONS [place] Discharge Planning Comments: CM MET WITH PATIENT ABOUT DC PLANNING/NEEDS. SHE STATES SHE WILL NEED REHAB BEFORE GOING HOME. YARA SIGNED FOR IPR AT [facility]. I TALKED WITH HER ABOUT LONG-TERM FACILITIES BUT SHE IS NOT WANTING TO DISCUSS THAT AT THIS TIME. PATIENT WILL POSSIBLY BE TRANSFERED TO THE FLOOR TODAY. CM WILL FOLLOW AND ASSIST NEEDED. Newspaper Distributor Supervisor: Ele Grimes Appended by Ele Grimes on 09/18/2019 12:06 CDT: OT AND REHAB ORDER PLACED ON PATIENT TODAY. DCPIA - Discharge Planning Initial Assessment Updated by [id number]: Ele Grimes on 09/18/19 12:00 pm * Is the patient Alert and Oriented? Yes * PCP [facility] * [facility] * Preadmission Environment Home with Family * List name and contact numbers for known caregivers / representatives who currently or will assist patient after discharge: AMBIKA TREVINO * Community resources currently utilized Home Health * Please name any agencies selected above. [facility] * Additional services required to return to the preadmission environment? Yes * Can the patient safely return to the preadmission environment? No * Has this patient been hospitalized within the prior 30 days at any hospital? Yes Coverage Notice Reviewer: [id number] - Ele Grimes Notice Issued Date-Time: 09/18/2019 12:02 Notice Type: Patient Choice Letter Notice Delivered To: Patient Relationship to Patient: Telecom Field Technician Name: Delivery Method: HAND - Hand Delivered Vilma Days: Prior Verbal Notification: Recipient Understood Notice: Yes Recipient Signature: Yes Med Rec Note Co-signed by Attending: Coverage Notice Comment: [facility] Last DP export: 09/26/19 8:18 a Patient Name: ELIZABETH DENTON Page [phone] at 0748 All edits/amendments must be made on the electronic document DICTATION DATE: 09/29/19747 PATTERN DRAFTER: YORDY 09/29/1947 RPT#: [id number] DC DATE: STATUS: ADM IN [facility] [address] [place] [address] END OF REPORT
[2019-09-29 10:41] VITALS: BP 154/65
--- NOTE | 2019-09-29 10:54 | NUR ---
PATIENT COMPLAINING OF SOB AND SWELLING IN LEGS. OBSERVED +2 PITTING EDEMA BILATERALY IN THE LOWER EXTREMITIES. CALLED INTERNATIONAL TRADE TEACHER COLOR CONTROL SUPERVISOR AND REPORTED FINDINGS. INTERNATIONAL TRADE TEACHER STATED THAT SHE WOULD HAVE TO LOOK OVER PATIENTS INFORMATION. NO NEW ORDERS AT THIS TME
[2019-09-29] MEDS ORDERED: OMNICEF300 MG PO (12:12)
[2019-09-29] MEDS ORDERED: BROVANA15 MCG/2 M INH (12:13)
[2019-09-29] MEDS ORDERED: ATROVENT 0.02%2.5 ML UPD (12:13)
[2019-09-29] MEDS ORDERED: PROPAFENONE HC225 MG PO (12:14)
[2019-09-29] MEDS ORDERED: SINGULAIR10 MG PO (12:14)
[2019-09-29] MEDS ORDERED: MUCINEX DM ER1 EAC1 PO (12:14)
[2019-09-29] MEDS ORDERED: PULMICORT0.5 MG/21 UPD (12:14)
[2019-09-29] MEDS ORDERED: TYLENOL RC (12:14)
[2019-09-29] MEDS ORDERED: Tessalon Perle PO (12:14)
[2019-09-29] MEDS ORDERED: MELATONIN 3 MG1 TAB PO (12:15)
[2019-09-29] MEDS ORDERED: PREPARATION H O57 GM RC (12:15)
[2019-09-29] MEDS ORDERED: PREDNISONE10 MG PO (12:15)
[2019-09-29 13:14] VITALS: BP 139/67
--- NOTE | 2019-09-29 14:13 | NUR ---
REPORT CALLED TO REHAB GOING TO BED [id number]
--- NOTE | 2019-09-29 14:45 | NUR ---
PROVIDED VERBAL AND WRITTEN DISCHARGE TEACHING TO PT, WHO VERBALIZED UNERSTANDING REGARDING TEACHING. HEART MONITOR REMOVED AND TAKEN TO FOREIGN TRADE TEACHER. PARKS AND RECREATION WORKER TO GET PT READY TO BE TAKEN DOWN TO REHAB.
--- NOTE | 2019-09-29 16:09 | NUR ---
OT NOTE: (AM) PT COMPLETED ADL MOB WITH CGA. PT COMPLETED SIT TO STAND WITH CGA. PT COMLETED BUE AROM AXS. (PM) PT COMPLETED TOILETING TASKS WITH SBA/CGA. PT COMPLETED BSC TO BED TSF WITH SBA. [id number];[phone] THANK YOU,JOSE MANUEL SANDOVAL
--- NOTE | 2019-09-30 09:15 | MORECARE ---
CASE MANAGEMENT DISCHARGE SUMMARY PATIENT: ELIZABETH DENTON UNIT: [id number] ADM DATE: 09/16/19 AGE: 64 : 57 SEX: F ROOM/BED: D.1400 AUTHOR: AURELIADOC PHYSICIAN: REFERRING PHYSICIAN: JANNET HAIRSTON MD DATE OF SERVICE: 09/30/19 Discharge Plan Patient Name: ELIZABETH DENTON Facility: [facility]:[place] : 1955 Planned Disposition: Anticipated Discharge Date: Discharge Date: 09/29/2019 Expected LOS: Initial Reviewer: [email or web address] Initial Review Date: 09/18/2019 Generated: 09/30/19 10:15 am Comments DCP- Discharge Planning Updated by [email or web address]: Amee Mario on 09/29/19 6:[address] Patient Name: ELIZABETH DENTON Encounter No: [id number] : 1955 [place] Insurance[place] [employer] [place] Anticipated DC Date: Planned Disposition: External Planned Provider: : late entry- assessment 09/26/19 DCP follow-up note: Staci from [facility] called and stated pt is being followed by APS. GEMA called APS to for follow up- , and oncology social work is [phone]. Helene stated he has been following patient since May. Stated the home environment where she was prior to admission was unsafe. Stated she needed to have a home to go to after dc, or they would find her placement in a NH. Spoke with pt about dc plan. Patient stated she can go and live with her sister Ambika Garrett ([phone]. Cm spoke with Ambika. Ambika has agreed to allow pt to live with her if she can care for herself. CM spoke with nursing, who stated the patient is requiring less assistance in using the bedside commode and cleaning herself. Patient will need IP rehab, then move in with her sister. Patient and family in agreement with discharge plan. Case management will follow and assist as needed. Amee Mario DCP- Discharge Planning Updated by [email or web address]: Ele Grimes on 09/18/19 11:[address] Patient Name: ELIZABETH DENTON Admission Status: ER Accout number: [id number] Admission Date: 09-16-2019 : 1955 Admission Diagnosis:ACUTE AND CHRONIC RESPIRATORY FAILURE WITH HYPERCAPNIA Attending: JANNET HAIRSTON Current LOS: 2 Anticipated DC Date: Planned Disposition: Primary Insurance: [place] [employer] [place] Discharge Planning Comments: CM MET WITH PATIENT ABOUT DC PLANNING/NEEDS. SHE STATES SHE WILL NEED REHAB BEFORE GOING HOME. YARA SIGNED FOR IPR AT [facility]. I TALKED WITH HER ABOUT PENITENTIARY FACILITIES BUT SHE IS NOT WANTING TO DISCUSS THAT AT THIS TIME. PATIENT WILL POSSIBLY BE TRANSFERED TO THE FLOOR TODAY. CM WILL FOLLOW AND ASSIST NEEDED. Farmworker Machine: Ele Grimes Appended by Ele Grimes on 09/18/2019 12:06 CDT: OT AND REHAB ORDER PLACED ON PATIENT TODAY. DCPIA - Discharge Planning Initial Assessment Updated by [email or web address]: Ele Grimes on 09/18/19 12:00 pm * Is the patient Alert and Oriented? Yes * PCP [facility] * [facility] * Preadmission Environment Home with Family * List name and contact numbers for known caregivers / representatives who currently or will assist patient after discharge: AMBIKA TREVINO * Community resources currently utilized Home Health * Please name any agencies selected above. [facility] * Additional services required to return to the preadmission environment? Yes * Can the patient safely return to the preadmission environment? No * Has this patient been hospitalized within the prior 30 days at any hospital? Yes Coverage Notice Reviewer: [id number] - Ele Grimes Notice Issued Date-Time: 09/18/2019 12:02 Notice Type: Patient Choice Letter Notice Delivered To: Patient Relationship to Patient: Rotor Blade Installer Name: Delivery Method: HAND - Hand Delivered Vilma Days: Prior Verbal Notification: Recipient Understood Notice: Yes Recipient Signature: Yes Med Rec Note Co-signed by Attending: Coverage Notice Comment: [facility] Last DP export: 09/29/19 6:48 am Patient Name: ELIZABETH DENTON Page [phone] at 0915 All edits/amendments must be made on the electronic document DICTATION DATE: 09/30/19914 BULK MAIL TECHNICIAN: YORDY 09/30/19914 RPT#: [id number] DC DATE:09/29/19 STATUS: DIS IN [facility] [address] [place] [address] END OF REPORT
== END 2019-09-29 14:58 | DRG 441 ==
LOC: D.ER 16:22 → D.M2 19:11 → D.ICU 19:11 → D.M2 09-18 14:08 → D.SDCHOLD 09-24 10:20 → D.M2 09-24 10:22
PROVIDERS: Family Medicine; Internal Medicine Pulmonary Disease; ADMIT Internal Medicine Nephrology; ATTEND Internal Medicine Nephrology
DX: K72.90 Hepatic failure, unspecified without coma (principal); J18.9 Pneumonia, unspecified organism; J96.22 Acute and chronic respiratory failure with hypercapnia; I50.33 Acute on chronic diastolic (congestive) heart failure; G93.41 Metabolic encephalopathy; J96.21 Acute and chronic respiratory failure with hypoxia; E87.1 Hypo-osmolality and hyponatremia; J44.1 Chronic obstructive pulmonary disease with (acute) exacerbation; J44.0 Chronic obstructive pulmonary disease with (acute) lower respiratory infection; Z68.43 Body mass index [BMI] 50.0-59.9, adult; I11.0 Hypertensive heart disease with heart failure; E87.6 Hypokalemia; D64.9 Anemia, unspecified; K74.60 Unspecified cirrhosis of liver; B19.20 Unspecified viral hepatitis C without hepatic coma; E78.5 Hyperlipidemia, unspecified; E66.01 Morbid (severe) obesity due to excess calories; M19.90 Unspecified osteoarthritis, unspecified site; F41.8 Other specified anxiety disorders; G40.909 Epilepsy, unspecified, not intractable, without status epilepticus; D47.3 Essential (hemorrhagic) thrombocythemia; I48.91 Unspecified atrial fibrillation; J20.9 Acute bronchitis, unspecified

== ENCOUNTER 2019-09-29 15:55 | Inpatient (IN) | payer MEDICAID ==
[~2019-09-29] VITALS: Ht 152.4 cm; Wt 129.3 kg
[~2019-09-29 15:55] MED LIST changes: +ATROVENT 0.02%2.5 ML UPD; +BROVANA15 MCG/2 M INH; +MELATONIN 3 MG1 TAB PO; +MUCINEX DM ER1 EAC1 PO; +OMNICEF300 MG PO; +PREDNISONE10 MG PO; +PREPARATION H O57 GM RC; +PROPAFENONE HC225 MG PO; +PULMICORT0.5 MG/21 UPD; +SINGULAIR10 MG PO; +TYLENOL RC; +Tessalon Perle PO
[2019-09-29 17:46] VITALS: BP 146/77; BMI 55.7
[2019-09-29 19:25] LABS: BASOPHILS 0.2 % (0-2); EOSINOPHILS 0 % (0-7); HEMATOCRIT 32.8 % (36.0-48.0); HEMOGLOBIN 10.4 g/dL (12-16); IMMATURE GRANULOCYTES 0.5 % (0-5); LYMPHOCYTES 6.5 % (15-50); MCHC 31.7 g/dL (31.0-37.0); MEAN PLATELET VOLUME 9.6 fL (7.4-10.4); MONOCYTES 4.7 % (2-11); NEUTROPHILS 88.1 % (40-80); PLATELET COUNT 87 10x3/uL (130-400); RDW 16.5 % (11.5-14.5); WBC 6.7 10x3/uL (4.8-10.8)
[2019-09-29 20:00] VITALS: BP 115/46
--- NOTE | 2019-09-29 20:00 | NUR ---
PT IS RESTING QUIETL IN BED WITH EYES OPEN. ALERT AND ORIENTED X 3. DENIES ACUTE DISCOMFORT AT THIS TIME. NO NEEDS VOICED. O2 IS ON @ 2LPM PER NC. NO SOB NOTED. SR'S ARE UP X2 IN BED. CALL LIGHT AND BEDSIDE TABLE ARE WITHIN EASY REACH.
--- NOTE | 2019-09-29 23:49 | NUR ---
PT IS RESTING QUIETLY IN BED WITH EYES CLOSED. NO ACUTE DISTRESS NOTED.
--- NOTE | 2019-09-30 01:24 | NUR ---
I have reviewed this patient and I concur with the Shift Assessment completed by the Licensed Practical Nurse today this shift.
--- NOTE | 2019-09-30 05:58 | NUR ---
PT RESTING IN BED WITH EYES CLOSED. NO ACUTE DISTRESS NOTED.
[2019-09-30 08:32] VITALS: BP 144/84
[2019-09-30 11:02] VITALS: Ht 152.4 cm; Wt 129.3 kg
--- NOTE | 2019-09-30 12:31 | NUR ---
PATIENT ADMITTED TO REHAB FROM ACUTE FLOOR. HER PCP IS DR. GUEVARA. AT DISCHARGE PATIENT PLANS ARE FOR PATIENT TO GO TO HER SISTER, AMBIKA Marinelli ([phone] ) HOME. SUNIL ENCARNACION ) IS ASSIGNED TO PATIENT. WILL CONTINUE TO FOLLOW UP WITH PATIENT.
--- NOTE | 2019-09-30 12:52 | NUR ---
SITTING UP ON SIDE OF BED FINISHING LUNCH. APPETITE GOOD. PEG SITE IS SLIGHTLY RED AROUND EDGES BUT NO ACTIVE DRAINING NOTED. NO ODOR NOTED. PEG IS NOT USED PT IS EATING PO AND HAVING BOWEL MOVEMENTS. SHE IS ON OXYGEN 2-3L VIA NC. SOB AT REST AND WORSE ON EXERTION. SCATTERED SMALL BRUISES OVER BODY. SHE WALKS TO BATHROOM. CALL LIGHT IN REACH. SIDE RAILS UP X2. BED IN LOWEST POSITION.
--- NOTE | 2019-09-30 19:22 | NUR ---
PT LYING IN BED WATCHING TV. CL IN REACH. DENIES NEEDS OR PAIN AT THIS TIME. BED IN LOW SIDE RAILS X2. A/O X4. LUNGS DIMINISHED. BOWEL ACTIVE X4. RESP EVEN AND UNLABORED AT THIS TIME. WILL CONTINUE TO MONITOR.
[2019-09-30 20:59] VITALS: BP 146/86
--- NOTE | 2019-10-01 00:48 | NUR ---
I have reviewed this patient and I concur with the Shift Assessment completed by the Licensed Practical Nurse today this shift.
[2019-10-01 07:57] LABS: BASOPHILS 0.1 % (0-2); EOSINOPHILS 0.5 % (0-7); HEMATOCRIT 34.8 % (36.0-48.0); HEMOGLOBIN 10.8 g/dL (12-16); IMMATURE GRANULOCYTES 0.3 % (0-5); LYMPHOCYTES 18.6 % (15-50); MCH 25.7 pg (26.0-34.0); MCV 82.9 fL (80.0-100.0); NEUTROPHILS 70.5 % (40-80); PLATELET COUNT 86 10x3/uL (130-400); RDW 17.1 % (11.5-14.5); WBC 7.5 10x3/uL (4.8-10.8)
[2019-10-01 08:00] VITALS: BP 125/68
--- NOTE | 2019-10-01 08:00 | NUR ---
SHIFT ASSMT COMPLETED.CL IN REACH.BREAKFAST GIVEN.
[2019-10-01 08:07] LABS: ALBUMIN 2.2 g/dL (3.4-5.0); ALKALINE PHOSPHATASE 66 U/L (30-120); ALT (SGPT) 22 U/L (10-68); BILIRUBIN - TOTAL 1.12 mg/dL (0.2-1.3); CALC OSMOLALITY 271 mosm/kg (275-300); CALCIUM 7.6 mg/dL (8.5-10.1); CARBON DIOXIDE 32.6 mmol/L (21.0-32.0); CHLORIDE - SERUM 101 mmol/L (98-107); CREATININE - SERUM 0.7 mg/dL (0.6-1.3); GLUCOSE 83 mg/dL (74-106); POTASSIUM - SERUM 3.3 mmol/L (3.5-5.1); PROTEIN - SERUM 5.7 g/dL (6.4-8.2); SODIUM 137 mmol/L (136-145); UREA NITROGEN 10 mg/dL (7-18); eGFR NON AFRICAN AMERICAN 90 mL/min (90-120)
[2019-10-01 10:37] LABS: PLATELET ESTIMATE DECREASED
--- NOTE | 2019-10-01 16:37 | NUR ---
CARE TEAM MEETING: PATIENT IS NEW TO UNIT AND WILL BE RA AT NEXT MEETING. WILL CONTINUE TO FOLLOW WITH PATIENT.
--- NOTE | 2019-10-01 19:30 | NUR ---
AWAKE AND ALERT. RESTING IN BED WITH RESPIRATIONS UNLABORED. O2 3L ON PER NASAL CANNULA. OLD PEG TUBE IN PLACE. 3+ EDEMA NOTED IN BILATERAL LOWER EXTREMITIES. NO ACUTE DISTRESS NOTED. CALL LIGHT IN REACH.
[2019-10-01 23:05] VITALS: BP 107/58
--- NOTE | 2019-10-02 02:04 | NUR ---
SLEEPING WITH RESPIRATIONS UNLABORED. NO DISTRESS NOTED.
--- NOTE | 2019-10-02 05:10 | NUR ---
QUIET HOURS. NO ACUTE CHANGES IN CONDITION THIS SHIFT. RESTING IN BED WITH NO DISTRESS NOTED.
[2019-10-02 08:00] VITALS: BP 142/62
--- NOTE | 2019-10-02 19:17 | NUR ---
AWAKE AND ALERT. RESTING IN BED WITH RESPIRATIONS UNLABORED. USES BED PIERCE PRN. O2/3L ON PER NASAL CANNULA. 3+ EDEMA NOTED IN BILATERAL LOWER EXTREMITIES. LEFGS ELEVATED IN BED. NO ACUTE DISTRESS NOTED.
[2019-10-02 21:00] VITALS: BP 162/92
--- NOTE | 2019-10-02 21:00 | NUR ---
DIGITAL BLOOD PRESSURE READ 175/100. MANUAL BLOOD PRESSURE CHECKED PER THIS NURSE AND READING 162/92. PATIENT STATES SHE WAS ON BLOOD PRESSURE MEDICINE AT HOME. MESSAGE LEFT FOR DR CUELLAR ON ROUNDING SHEET. WILL CONTINUE TO MONITOR.
[2019-10-02 21:53] VITALS: BP 175/100
[2019-10-02 23:52] VITALS: BP 158/90
--- NOTE | 2019-10-02 23:52 | NUR ---
BLOOD PRESSURE NOW 158/90. NO DISTRESS NOTED. WILL CONTINUE TO MONITOR.
--- NOTE | 2019-10-03 05:13 | NUR ---
QUIET HOURS. NO ACUTE CHANGES IN CONDITION THIS SHIFT. HAD ONE LOOSE STOOL THIS SHIFT. NO DISTRESS NOTED.
[2019-10-03 08:00] VITALS: BP 132/67
[2019-10-03 08:27] LABS: BASOPHILS 0 % (0-2); EOSINOPHILS 0.9 % (0-7); HEMATOCRIT 37.4 % (36.0-48.0); HEMOGLOBIN 11.5 g/dL (12-16); IMMATURE GRANULOCYTES 0.2 % (0-5); MCH 25.6 pg (26.0-34.0); MCHC 30.7 g/dL (31.0-37.0); MCV 83.3 fL (80.0-100.0); MEAN PLATELET VOLUME 9.9 fL (7.4-10.4); MONOCYTES 5.9 % (2-11); PLATELET COUNT 92 10x3/uL (130-400); RBC 4.49 10x6/uL (4.00-5.40); RDW 17.2 % (11.5-14.5); WBC 8.1 10x3/uL (4.8-10.8)
[2019-10-03 08:49] LABS: ALBUMIN 2.8 g/dL (3.4-5.0); ALKALINE PHOSPHATASE 68 U/L (30-120); ALT (SGPT) 25 U/L (10-68); BILIRUBIN - TOTAL 1.37 mg/dL (0.2-1.3); CALC OSMOLALITY 266 mosm/kg (275-300); CALCIUM 8.1 mg/dL (8.5-10.1); CARBON DIOXIDE 30.8 mmol/L (21.0-32.0); CHLORIDE - SERUM 96 mmol/L (98-107); CREATININE - SERUM 0.8 mg/dL (0.6-1.3); POTASSIUM - SERUM 3.5 mmol/L (3.5-5.1); PROTEIN - SERUM 6.5 g/dL (6.4-8.2); SODIUM 132 mmol/L (136-145); UREA NITROGEN 11 mg/dL (7-18); eGFR NON AFRICAN AMERICAN 77 mL/min (90-120)
[2019-10-03 08:51] LABS: GLUCOSE 157 mg/dL (74-106)
--- NOTE | 2019-10-03 08:54 | RHP ---
PATIENT: ELIZABETH DENTON MEDICAL RECORD: [id number] ACCOUNT: [id number] LOCATION:[facility] : [birth year] ADMISSION DATE: 09/29/19 REHABILITATION HISTORY AND PHYSICAL EXAMINATION POST ADMISSION PHYSICIAN EXAMINATION ADMITTING DIAGNOSIS: Acute metabolic encephalopathy. HISTORY OF PRESENT ILLNESS: The patient is a 64-year-old morbidly obese female who presented secondary to shortness of breath, lethargy and acute mental status changes. The patient apparently failed to belt picker her lactulose and other medications secondary to cost of the medication when previously discharged from the hospital after A follow up with her PCP. She has been admitted to the facility on 05/28/2019 for acute hypoxic respiratory failure. She was admitted to inpatient rehab on 08/28/2019 to [facility]. She has been in LTAC before with bacteremia and pneumonia. She was admitted to ICU for close monitoring due to lethargy and swallowing precautions. She has been seen and followed by pulmonary throughout her stay. She also required cardiology consult secondary to atrial fibrillation and rapid ventricular response. The patient has been receiving PT and OT during her acute hospital stay. She needs to be monitored closely for any type of mental status changes, also seizure activity, being off alcohol. She is on telemetry. She got pain control. We are monitoring I's and O's, electrolytes. She has been noncompliant with medications in the past. She has got weakness, balance deficits, decreased activity tolerance, impaired mobility, decreased quality of life, gait disturbance, limited safety awareness. She needs cues for equipment. She fatigues easily. She has got inability to care for herself and self-care deficit. These are barriers to her discharge home. She lives at home with her niece and niece's family, was independent with ADLs and mobility, using a rolling walker prior to this. She would like to return home with her sister upon discharge. She is currently mod assist for her ADLs and mod assist for mobility. COMORBIDITIES: In this patient include weakness hypercapnic respiratory failure, metabolic encephalopathy, electrolyte abnormalities, morbid obesity, osteoarthritis, anxiety, depression, thrombocytopenia, protein-calorie malnutrition, got a history of atrial fib. PAST MEDICAL HISTORY: Significant for seizure disorder, hepatitis C, cirrhosis, thrombocytopenia, hypertension, hyperlipidemia, CHF, atrial fib, COPD, osteoarthritis, depression and anxiety. PAST SURGICAL HISTORY: Includes PEG tube placement and previous tracheostomy in the past. ALLERGIES: PENICILLIN. CURRENT MEDICATIONS: Include Floranex daily. She is on prednisone 40 mg daily. She is on a tapering dose, Omnicef 300 mg b.i.d., potassium 40 mEq b.i.d., Tessalon Perles 200 mg t.i.d., Xifaxan 550 b.i.d., Rythmol 225 t.i.d., Singulair 10 mg at bedtime, melatonin 6 mg at bedtime, lactulose solution 30 mL b.i.d. She is on Mucinex 1 tab b.i.d., Lasix 80 mg b.i.d. She is on Atrovent updrafts q.4 hours. She is on budesonide 0.5 mg b.i.d. She is on Brovana 15 mcg b.i.d. She is on Anusol suppositories as needed, Zofran p.r.n., acetaminophen 325 mg q.6 hours p.r.n., and MiraLax 17 grams in 8 ounces of water daily. HISTORY AND PHYSICAL [id number] DENTONELIZABETH LORENZA HABITS: No alcohol or tobacco use at this time, but she does drink extensively outside the hospital. FAMILY HISTORY: Noncontributory. SOCIAL HISTORY: As above. She hopes to return home with her niece. REVIEW OF SYSTEMS: GENERAL: Does complain of some weakness and fatigue. HEENT: Denies cold, cough, or congestion. CARDIOVASCULAR: Denies any chest pain. PHYSICAL EXAMINATION: VITAL SIGNS: Stable, afebrile. GENERAL: A morbidly obese female, in no acute distress upon exam. HEENT: Normocephalic and atraumatic. Mucosa moist. NECK: Supple. No lymphadenopathy. LUNGS: Clear at this time. No wheeze or rales. HEART: Irregular rate and rhythm at this time. ABDOMEN: Soft, benign and noted to be obese. EXTREMITIES: No clubbing, cyanosis or edema. NEUROLOGIC: She is a little bit slow to mentate. She does have a noted proximal muscle weakness. LABORATORY DATA: White count 6.7, H&H of 10 and 32 and platelet count is noted to be 87,000. ASSESSMENT: This is a 64-year-old female patient admitted to rehab with a working diagnosis of acute metabolic encephalopathy. The patient has potential to make improvement. We instituted the following multidisciplinary therapies including, but not limited to physical, occupational, respiratory, speech, nutritional services, prosthetics and orthotics. Given her complex medical condition and risks for more complications, rehabilitation services cannot be provided at a low level of care such as halfway facility. PLAN: 1. Admit to [facility] for intensive inpatient therapy to include the following disciplines; A. Physical therapy to improve gait, all transfer skills and bed mobility to a modified independent level. B. Occupational therapy to improve activities of living. C. Case management to assist with discharge planning and placement options. D. Nutrition to assist with nutritional needs. E. Rehabilitation nursing to assist in monitoring the patient's underlying medical conditions and to assist with any type of bowel or bladder management. 2. The patient's current medication and medical care will be continued. 3. The patient will be placed on standard fall precautions. 4. I am going to go ahead and check an ammonia level and CMP on her in the a.m. 5. We will see back in the a.m. and we will keep up to date with the care team. TRANSINT:[id number] Voice Confirmation ID: [id number] DOCUMENT ID: [id number] MERT notes whether there has been none or any medical/functional change since admission: HISTORY AND PHYSICAL [id number] ELIZABETH DENTON - No change since preadmission screen. MERT attests patient continues to be appropriate for IRF: - Continues to be appropriate. CRYSTAL CUELLAR MD at 0854 CC: [id number] DICTATION DATE: 09/30/19904 TELEVISION REPORTER: 09/30/19 1231 ADM IN [facility] [address] [place] [address]
--- NOTE | 2019-10-03 10:27 | NUR ---
LAYING IN BED WATCHING TV. OXYGEN 3LNC IN PLACE. DENIES INCREASED SOB AT REST. CALL LIGHT IN REACH. BED IN LOWEST POSITION.
--- NOTE | 2019-10-03 15:13 | NUR ---
Nutrition Follow-up: Patient was OOR at time of RD visit. RD will revisit at a later time. Diet: Regular PO intake: none recorded, previously reported good appetite. Last BM: 10/03/19. WT: 285# (09/30/19) Meds noted: prednisone, lactulose, lasix Labs noted: Na 132(L), Glu 157(H), ammonia 45(H), Alb 2.8(L) Recommend continue current diet. Encourage PO intake. RD following.
--- NOTE | 2019-10-03 15:41 | NUR ---
LAYING IN BED WATCHING TV. DSG TO PEG CHANGED. APPEARS TO BE SOME THICK GRAYISH, STICKY SECRETIONS AROUND PEG SITE. AREA WAS CLEANSED WITH WOUND BUSINESS STRATEGIST AND CLEAN, DRY DSG APPLIED. CALL LIGHT IN REACH
--- NOTE | 2019-10-03 19:18 | NUR ---
AWAKE AND ALERT. RESTING IN BED WITH RESPIRAITONS UNLABORED. NO ACUTE DISTRESS NOTED. CALL LIGHT IN REACH.
[2019-10-03 19:37] VITALS: BP 126/52
--- NOTE | 2019-10-04 00:47 | NUR ---
HAD INCONTINENT EPISODE OF URINE. BED LINENS AND GOWN CHANGED. ASSISTED BACK TO BED.
--- NOTE | 2019-10-04 05:20 | NUR ---
RESTING IN BED. NO ACUTE CHANGES IN CONDITION THIS SHIFT. RESPIRATIONS SLIGHTLY LABORED AND NOTED SHORTNESS OF BREATH WITH EXERTION.
[2019-10-04 08:00] VITALS: BP 125/59
--- NOTE | 2019-10-04 10:03 | NUR ---
RESTING QUIETLY IN BED, EYES CLOSED. NO S/S DISTRESS. HAS BEEN UP WORKING WITH THERAPY THIS MORNING. OXYGEN IN USE AT 3LNC. CALL LIGHT IN HAND, SIDE RAILS UP X2, BED IN LOWEST POSITION.
--- NOTE | 2019-10-04 18:36 | NUR ---
STILL USING BED SIDE COMMODE FOR ELIMINATION NEEDS DUE TO TAKING LACTULOSE. PEG SITE IS STILL SLIGHTLY PINK BUT IMPROVING IN LOOKS. PEG NOT USED PT IS STILL EATING PO. CALL LIGHT IN REACH. BED IN LOWEST POSITION.
--- NOTE | 2019-10-04 18:55 | NUR ---
BEDSIDE REPORT COMPLETE. PT LYING IN BED SUPINE. ALERT AND ORIENTED X4. BLE +3 EDEMA. CONTINUES ON 3L VIA NC. BSC NEXT TO BED. BED ALARM WAIVER ON FILE. DENIES ANY NEEDS OR PAIN. NO SIGNS OF ACUTE DISTRESS NOTED. CALL LIGHT WITHIN REACH. FALL PRECAUTIONS IN PLACE. CPOC
[2019-10-04 20:40] VITALS: BP 128/60
--- NOTE | 2019-10-05 00:27 | NUR ---
PT LYING IN BED SUPINE WATCHING TV. DENIES ANY NEEDS OR PAIN. CONTINUES ON 3L VIA NC. CALL LIGHT WITHIN REACH. FALL PRECAUTIONS IN PLACE. CPOC
--- NOTE | 2019-10-05 02:38 | NUR ---
PT LYING IN BED WATCHING TV. DENIES ANY NEEDS OR PAIN. RR EVEN AND UNLABORED. CALL LIGHT WITHIN REACH. FALL PRECAUTIONS IN PLACE. CPOC
--- NOTE | 2019-10-05 05:09 | NUR ---
PT SITTING UP ON SIDE OF BED. ALERT AND ORIENTED X4. DENIES ANY NEEDS. PAIN MEDICATION ADMININSTERED PER PT REQUEST. BSC EMPTIED NADYA COLORED URINE. CALL LIGHT WITHIN REACH. FALL PRECAUTIONS IN PLACE. CPOC
[2019-10-05 08:00] VITALS: BP 108/61
--- NOTE | 2019-10-05 13:12 | NUR ---
LAYING ON BACK RESTING QUIETLY. OXYGEN IN PLACE 3LNC.
--- NOTE | 2019-10-05 18:50 | NUR ---
BEDSIDE REPORT COMPLETE. PT LYING IN BED SUPINE. ALERT AND ORIENTED X4. DENIES ANY NEEDS OR PAIN. BSC EMPTIED. BLE +3 EDEMA. ELEVATED BLE AND BRIDGED HEELS. CALL LIGHT WITHIN REACH. FALL PRECAUTIONS IN PLACE. CPOC
[2019-10-05 20:38] VITALS: BP 119/60
--- NOTE | 2019-10-05 22:33 | NUR ---
PT LYING IN BED SUPINE EYES CLOSED RESTING. RR EVEN AND UNLABORED. CONTINUES ON 3L VIA NC. CALL LIGHT WITHIN REACH. FALL PRECAUTIONS IN PLACE. WILL CONTINUE TO MONITOR
--- NOTE | 2019-10-06 00:45 | NUR ---
PT LYING IN BED SUPINE EYES CLOSED RESTING. RR EVEN AND UNLABORED. CALL LIGHT WITHIN REACH. FALL PRECAUTIONS IN PLACE. CPOC
--- NOTE | 2019-10-06 03:21 | NUR ---
PT LYING IN BED SUPINE EYES CLOSED RESTING. RR EVEN AND UNLABORED. CALL LIGHT WITHIN REACH. FALL PRECAUTIONS IN PLACE. CPOC
[2019-10-06 08:00] VITALS: BP 134/72
--- NOTE | 2019-10-06 15:23 | NUR ---
LAYING DOWN IN BED RESTING QUIETLY. STILL WEARING OXYGEN. CALL LIGHT IN REACH BED IN LOWEST POSITION.
--- NOTE | 2019-10-06 19:30 | NUR ---
AWAKE AND ALERT. RESTING IN BED WITH O2/3L ON PER NASAL CANNULA. SHORT OF BREATH WITH EXERTION. UP AD ELOY TO BSC.
[2019-10-06 21:26] VITALS: BP 116/66
--- NOTE | 2019-10-07 01:06 | NUR ---
BEDSIDE COMMODE EMPTIED. LARGE LOOSE BM NOTED.
--- NOTE | 2019-10-07 05:10 | NUR ---
QUIET HOURS. NO ACUTE CHANGES IN CONDITION THIS SHIFT. RESTING IN BED WITH NO DISTRESS NOTED.
[2019-10-07 08:00] VITALS: BP 116/71
--- NOTE | 2019-10-07 13:41 | NUR ---
RESTING QUIETLY IN BED.DENIES NEEDS.CL IN EASY REACH,BED IN LOW POSITION.
--- NOTE | 2019-10-07 14:19 | NUR ---
Nutrition Follow-up: Diet: Regular PO intake: 100% x last 3 meals Last BM: 10/07/19 x 3. WT: 285# (09/30/19) Meds noted: prednisone, lactulose, lasix. No new labs Recommend continue current diet. RD following.
--- NOTE | 2019-10-07 15:52 | NUR ---
DRESSING CHANGE DONE TO LUQ PEG.SITE WITHOUT SIGNS OF INFECTION.
--- NOTE | 2019-10-07 19:15 | NUR ---
AWAKE AND ALERT. RESTING IN BED WITH O2/3L ON PER NASAL CANNULA. SHORT OF BREATH WITH MINIMAL EXERTION. BILATAL GENERALIZED EDEMA NOTED IN LOWER EXTREMITIES. UP AD ELOY TO BSC. ON LACTULOSE AND LASIX. NO ACUTE DISTRESS NOTED. CALL LIGHT IN REACH.
[2019-10-07 21:18] VITALS: BP 109/65
--- NOTE | 2019-10-07 23:59 | NUR ---
SLEEPING WITH RESPIRATIONS UNLABORED. NO DISTRESS NOTED.
--- NOTE | 2019-10-08 04:58 | NUR ---
RESTING IN BED. NO ACUTE CHANGES IN CONDITION THIS SHIFT. O2/3L ON PER NASAL CANNULA. USES BED SIDE COMMODE NEEDED.
[2019-10-08 06:27] LABS: BASOPHILS 0.2 % (0-2); EOSINOPHILS 3.4 % (0-7); HEMATOCRIT 36.2 % (36.0-48.0); HEMOGLOBIN 11.2 g/dL (12-16); LYMPHOCYTES 24.5 % (15-50); MCH 25.6 pg (26.0-34.0); MCHC 30.9 g/dL (31.0-37.0); MCV 82.6 fL (80.0-100.0); MEAN PLATELET VOLUME 10.3 fL (7.4-10.4); MONOCYTES 10.5 % (2-11); NEUTROPHILS 61.4 % (40-80); RBC 4.38 10x6/uL (4.00-5.40); RDW 17.2 % (11.5-14.5); WBC 5.6 10x3/uL (4.8-10.8)
[2019-10-08 06:35] LABS: PLATELET COUNT 51 10x3/uL (130-400)
[2019-10-08 07:02] LABS: ALBUMIN 2.6 g/dL (3.4-5.0); ALKALINE PHOSPHATASE 86 U/L (30-120); ALT (SGPT) 23 U/L (10-68); BILIRUBIN - TOTAL 0.98 mg/dL (0.2-1.3); CALC OSMOLALITY 265 mosm/kg (275-300); CARBON DIOXIDE 29.7 mmol/L (21.0-32.0); CHLORIDE - SERUM 99 mmol/L (98-107); CREATININE - SERUM 0.6 mg/dL (0.6-1.3); POTASSIUM - SERUM 3.5 mmol/L (3.5-5.1); PROTEIN - SERUM 6.2 g/dL (6.4-8.2); SODIUM 134 mmol/L (136-145); UREA NITROGEN 11 mg/dL (7-18); eGFR NON AFRICAN AMERICAN > 90 mL/min (90-120)
[2019-10-08 07:03] LABS: GLUCOSE 88 mg/dL (74-106)
[2019-10-08 08:00] VITALS: BP 135/60
--- NOTE | 2019-10-08 10:13 | NUR ---
LAYING ON BACK IN BED IN ROOM WATCHING TV. HAS BEEN UP WITH THERAPY THIS MORNING ALREADY. OXYGEN 3LNC IN PLACE. VOICE IS SOFT AND SHE SPEAKS 4-5 WORDS PER BREATH. DENIES INCREASED SOB OR PAIN. CALL LIGHT IN REACH
[2019-10-08 11:12] LABS: PLATELET ESTIMATE DECREASED
--- NOTE | 2019-10-08 18:58 | NUR ---
BEDSIDE REPORT COMPLETE. PT LYING IN BED SUPINE. ALERT AND ORIENTED X4. DENIES ANY NEEDS OR PAIN. NO SIGNS OF ACUTE DISTRESS NOTED. BSC EMPTIED. CONTINUES ON 3L VIA SD. CALL LIGHT WITHIN REACH. BED WAIVER ON FILE. CPOC
[2019-10-08 21:10] VITALS: BP 108/59
--- NOTE | 2019-10-08 23:06 | NUR ---
PT LYING IN BED SUPINE EYES CLOSED RESTING. RR EVEN AND UNLABORED. CALL LIGHT WITHIN REACH. FALL PRECAUTIONS IN PLACE. WILL CONTINUE TO MONITOR
--- NOTE | 2019-10-09 02:41 | NUR ---
PT LYING IN BED SUPINE WATCHING TV. HOB ELEVATED. DENIES ANY NEEDS OR PAIN. 400ML CONCENTRATED URINE EMPTIED FROM BSC. CALL LIGHT WITHIN REACH. FALL PRECAUTIONS IN PLACE. WILL CONTINUE TO MONITOR
--- NOTE | 2019-10-09 06:02 | NUR ---
PT LYING IN BED EYES CLOSED RESTING. EASILY AROUSED WITH STIMULI. EARLY AM MEDS ADMININSTERED. CONTINUES ON 3L VIA NC. CALL LIGHT WITHIN REACH. FALL PRECAUTIONS IN PLACE. WILL CONTINUE TO MONITOR
[2019-10-09 08:00] VITALS: BP 108/82
[2019-10-09] MEDS ORDERED: LISINOPRIL10 MG PO (08:16)
[2019-10-09] MEDS ORDERED: ALDACTONE25 MG PO (08:16)
--- NOTE | 2019-10-09 15:20 | NUR ---
LAYING ON BACK IN BED WATCHING TV. HAS CALL LIGHT/REMOTE IN HAND. DENIES NEEDS OR C/O. BED SIDE COMMODE WITH IN REACH. TAKES LACTULOSE DAILY AND HAS LOOSE STOOLS BECAUSE OF IT. GETS HERSELF OUT OF BED AND DOES MOST THING FOR HERSELF.
--- NOTE | 2019-10-09 18:55 | NUR ---
BEDSIDE REPORT COMPLETE. PT LYING IN BED SUPINE WATCHING TV. ALERT AND ORIENTED X4. DENIES ANY NEEDS OR PAIN. CONTINUES ON 3L VIA NC. CALL LIGHT WITHIN REACH. FALL PRECAUTIONS IN PLACE. CPOC
[2019-10-09 19:00] VITALS: BP 109/60
--- NOTE | 2019-10-10 00:08 | NUR ---
PT LYING IN BED WATCHING TV. DENIES ANY NEEDS OR PAIN. NO SIGNS OF ACUTE DISTRESS NOTED. CALL LIGHT WITHIN REACH. FALL PRECAUTIONS IN PLACE. WILL CONTINUE TO MONITOR
--- NOTE | 2019-10-10 05:00 | NUR ---
PT LYING IN BED SUPINE EYES CLOSED RESTING. RR EVEN AND UNLABORED. CONTINUES ON 3L VIA NC. CALL LIGHT WITHIN REACH. BSC EMPTIED CONCENTRATED URINE. FALL PRECAUTIONS IN PLACE. CPOC
[2019-10-10 07:51] VITALS: BP 123/72
--- NOTE | 2019-10-10 10:53 | NUR ---
PATIENT DISCHARGING HOME TODAY WITH SISTER AMBIKA. [facility] WILL RESUME THERAPY AT HOME. NO NEW DME NEEDED AT THIS TIME. DR. HITCHCOCK 10/16/19 @ 3:00. YARA SIGNED, IMM SERVED AND EXPLAINED, ONE GIVEN TO PATIENT AND ONE FILED IN CHART. DISCHAERGE INSTRUCTIONS FAXED TO HOME HEALTH, PCP AND FAXED TO [facility] , AUTH# [id number] AND REVIEWED WITH PATIENT PER PRIMARY NURSE.
--- NOTE | 2019-10-10 15:30 | NUR ---
ORDER HAS BEEN FAXED TO [facility] FOR A NEBULIZER TO BE DELIVERED TO HER HOME.[facility] HAS ACCEPTED HER FOR THERAPY.
--- NOTE | 2019-10-10 16:43 | NUR ---
RESTING QUIETLY ON BACK, EYES CLOSED. OXYGEN IN USE. 3LNC. NO S/S DISTRESS OR NEEDS. RESP EFFORT NON LABORED. CALL LIGHT IN HAND. IS SCHEDULED TO DC THIS EVENING WITH SISTER.
--- NOTE | 2019-10-10 17:39 | NUR ---
DC HOME WITH HER SISTER. REVIEWED MEDS AND DC PLAN. MEDS CALLED IN TO [facility]. LEFT FLOOR IN WC.
--- NOTE | 2019-10-13 11:02 | NUR ---
NOTIFIED SHASHANK AT [facility] THAT PATIENT DISCHARGED HOME WITH SISTER AMBIKA SALAZAR ON 10/10/19.
== END 2019-10-10 17:42 | disposition home health service (06) | DRG 70 ==
LOC: D.REHAB 15:55
PROVIDERS: ADMIT Emergency Medicine; ATTEND Emergency Medicine
DX: G93.41 Metabolic encephalopathy (principal); I50.33 Acute on chronic diastolic (congestive) heart failure; J96.22 Acute and chronic respiratory failure with hypercapnia; J96.21 Acute and chronic respiratory failure with hypoxia; E46 Unspecified protein-calorie malnutrition; E87.1 Hypo-osmolality and hyponatremia; J44.1 Chronic obstructive pulmonary disease with (acute) exacerbation; R53.1 Weakness; E87.8 Other disorders of electrolyte and fluid balance, not elsewhere classified; E66.01 Morbid (severe) obesity due to excess calories; M19.90 Unspecified osteoarthritis, unspecified site; F41.8 Other specified anxiety disorders; D69.6 Thrombocytopenia, unspecified; I48.91 Unspecified atrial fibrillation; R26.9 Unspecified abnormalities of gait and mobility; Z91.19 Patient's noncompliance with other medical treatment and regimen; G40.909 Epilepsy, unspecified, not intractable, without status epilepticus; I11.0 Hypertensive heart disease with heart failure; J44.9 Chronic obstructive pulmonary disease, unspecified; G92 Toxic encephalopathy; R06.00 Dyspnea, unspecified; E87.6 Hypokalemia; D64.9 Anemia, unspecified; K74.60 Unspecified cirrhosis of liver; B19.20 Unspecified viral hepatitis C without hepatic coma; E78.5 Hyperlipidemia, unspecified; D72.819 Decreased white blood cell count, unspecified

== ENCOUNTER 2019-11-03 09:39 | Inpatient (IN) | payer MEDICAID ==
[2019-11-03] VITALS (7 sets, daily range): BP systolic 105–138; BP diastolic 63–93
[~2019-11-03] VITALS: Ht 152.4 cm; Wt 122.1 kg
[~2019-11-03 09:39] MED LIST changes: +LISINOPRIL10 MG PO
[2019-11-03 10:09] LABS: BASOPHILS 0.2 % (0-2); EOSINOPHILS 0.2 % (0-7); HEMATOCRIT 41.8 % (36.0-48.0); HEMOGLOBIN 13.8 g/dL (12-16); IMMATURE GRANULOCYTES 0.2 % (0-5); LYMPHOCYTES 15.2 % (15-50); MCH 26.5 pg (26.0-34.0); MCV 80.2 fL (80.0-100.0); MEAN PLATELET VOLUME 10.1 fL (7.4-10.4); MONOCYTES 10.5 % (2-11); NEUTROPHILS 73.7 % (40-80); RBC 5.21 10x6/uL (4.00-5.40); RDW 17.7 % (11.5-14.5); WBC 9.5 10x3/uL (4.8-10.8)
[2019-11-03 10:18] LABS: CALC OSMOLALITY 259 mosm/kg (275-300); CALCIUM 10.4 mg/dL (8.5-10.1); CARBON DIOXIDE 24.9 mmol/L (21.0-32.0); CHLORIDE - SERUM 96 mmol/L (98-107); CREATININE - SERUM 1.2 mg/dL (0.6-1.3); GLUCOSE 122 mg/dL (74-106); PLATELET COUNT 196 10x3/uL (130-400); POTASSIUM - SERUM 3.8 mmol/L (3.5-5.1); SODIUM 129 mmol/L (136-145); UREA NITROGEN 13 mg/dL (7-18); eGFR NON AFRICAN AMERICAN 48 mL/min (90-120)
[2019-11-03 10:26] LABS: ALBUMIN 2.9 g/dL (3.4-5.0); ALKALINE PHOSPHATASE 89 U/L (30-120); ALT (SGPT) 19 U/L (10-68); AMYLASE - SERUM 23 U/L (25-115); BILIRUBIN - TOTAL 1.51 mg/dL (0.2-1.3); LIPASE 60 U/L (73-393); PROTEIN - SERUM 7.1 g/dL (6.4-8.2); TROPONIN-I < 0.017 ng/mL (0.000-0.060)
--- NOTE | 2019-11-03 11:19 | NUR ---
ASSISTED PT UP TO BSC, URINE SPEC COLLECTED, LABELED AT BS AND SENT TO LAB
[2019-11-03 12:36] LABS: BACTERIA MANY /hpf (NEGATIVE); BILIRUBIN NEGATIVE (NEGATIVE); EPITHELIAL CELLS OCC /hpf (0-5); GLUCOSE NEGATIVE (NEGATIVE); KETONE NEGATIVE (NEGATIVE); NITRITE POSITIVE (NEGATIVE); SPECIFIC GRAVITY 1.015 (1.005-1.020); UROBILINOGEN 4 mg/dL (NORMAL); WHITE CELLS - URINE >50 /hpf (NEGATIVE)
--- NOTE | 2019-11-03 14:40 | NUR ---
REQUESTING OMEPRAZOLE FOR "HEARTBURN" DR HITCHCOCK PAGED
--- NOTE | 2019-11-03 14:50 | NUR ---
DR HITCHCOCK AT
[2019-11-03 15:26] LABS: UDS - AMPHET NEGATIVE QUAL (NEGATIVE); UDS - BARB NEGATIVE QUAL (NEGATIVE); UDS - BENZO NEGATIVE QUAL (NEGATIVE); UDS - COCAINE NEGATIVE QUAL (NEGATIVE); UDS - OPIATE POSITIVE QUAL (NEGATIVE); UDS - PCP NEGATIVE QUAL (NEGATIVE); UDS - THC NEGATIVE QUAL (NEGATIVE)
[2019-11-03 16:23] LABS: CKMB 1.2 U/L (0.0-3.6); CREATINE KINASE 33 UL (21-215)
[2019-11-03 16:26] LABS: TROPONIN-I < 0.017 ng/mL (0.000-0.060)
--- NOTE | 2019-11-03 17:24 | NUR ---
REPORT TO MAXIMILIANO REYES
--- NOTE | 2019-11-03 18:09 | NUR ---
ADMIT TO ROOM #2208, CONDITION STABLE
[2019-11-03 22:01] LABS: CKMB 1.4 U/L (0.0-3.6); CREATINE KINASE 48 UL (21-215)
[2019-11-03 22:03] LABS: TROPONIN-I < 0.017 ng/mL (0.000-0.060)
--- NOTE | 2019-11-03 23:00 | NUR ---
A&O X 4. UP TO BSC, STANDBY ASSIST. SPO2 80% ON ROOM AIR. 87% MAX ON 4L. RT NOTIFIED. ENCOURAGED DEEP BREATHING. PT REPORTS 3L O2 AT HOME. MONITOR CLOSELY.
[2019-11-04 02:26] VITALS: BP 105/63; BMI 45.0
[2019-11-04 03:22] LABS: BASOPHILS 0.2 % (0-2); EOSINOPHILS 0.2 % (0-7); HEMATOCRIT 40.8 % (36.0-48.0); HEMOGLOBIN 13.2 g/dL (12-16); IMMATURE GRANULOCYTES 0.2 % (0-5); LYMPHOCYTES 15.3 % (15-50); MCH 27.1 pg (26.0-34.0); MCHC 32.4 g/dL (31.0-37.0); MEAN PLATELET VOLUME 10.5 fL (7.4-10.4); MONOCYTES 10.5 % (2-11); NEUTROPHILS 73.6 % (40-80); PLATELET COUNT 178 10x3/uL (130-400); RBC 4.87 10x6/uL (4.00-5.40); RDW 18.4 % (11.5-14.5); WBC 9.3 10x3/uL (4.8-10.8)
[2019-11-04 03:25] LABS: MCV 83.8 fL (80.0-100.0)
[2019-11-04 03:57] LABS: CALC OSMOLALITY 265 mosm/kg (275-300); CALCIUM 9.1 mg/dL (8.5-10.1); CARBON DIOXIDE 25.1 mmol/L (21.0-32.0); CHLORIDE - SERUM 101 mmol/L (98-107); CKMB 1.3 U/L (0.0-3.6); CREATINE KINASE 36 UL (21-215); CREATININE - SERUM 1.6 mg/dL (0.6-1.3); GLUCOSE 139 mg/dL (74-106); POTASSIUM - SERUM 4.4 mmol/L (3.5-5.1); SODIUM 131 mmol/L (136-145); TROPONIN-I 0.016 ng/mL (0.000-0.060); UREA NITROGEN 14 mg/dL (7-18); eGFR NON AFRICAN AMERICAN 34 mL/min (90-120)
[2019-11-04 04:00] VITALS: BP 106/63
[2019-11-04 08:15] VITALS: BP 105/62
--- NOTE | 2019-11-04 09:26 | NUR ---
SHE IS ALERT, TALKING. SHE IS UP AND DOWN TO THE BSC WITH HELP. THE CALL LIGHT IS WITHIN REACH.
[2019-11-04 14:01] VITALS: BMI 46.8
--- NOTE | 2019-11-04 17:39 | MORECARE ---
CASE MANAGEMENT DISCHARGE SUMMARY PATIENT: ELIZABETH DENTON UNIT: [id number] ADM DATE: 11/04/19 AGE: 64 : 56 SEX: F ROOM/BED: D.2208 AUTHOR: JOLEEN MOSES PHYSICIAN: REFERRING PHYSICIAN: BELINDA GUEVARA MD DATE OF SERVICE: 11/04/19 Discharge Plan Patient Name: ELIZABETH DENTON Facility: [facility]:[place] : 1955 Planned Disposition: Anticipated Discharge Date: Discharge Date: Expected LOS: Initial Reviewer: [email or web address] Initial Review Date: 11/04/2019 Generated: 11/04/19 6:38 pm Patient Name: ELIZABETH DENTON Page [phone] at 1739 All edits/amendments must be made on the electronic document DICTATION DATE: 11/04/191737 ASSIGNER: YORDY 11/04/191737 RPT#: [id number] [place] DATE: STATUS: ADM IN [facility] [address] [place] [address] END OF REPORT
--- NOTE | 2019-11-04 17:46 | MORECARE ---
CASE MANAGEMENT DISCHARGE SUMMARY PATIENT: ELIZABETH DENTON UNIT: [id number] ADM DATE: 11/04/19 AGE: 64 : 57 SEX: F ROOM/BED: D.2209 AUTHOR: JOLEEN MOSES PHYSICIAN: REFERRING PHYSICIAN: BELINDA GUEVARA MD DATE OF SERVICE: 11/04/19 Discharge Plan Patient Name: ELIZABETH DENTON Facility: [facility]:[place] : 1955 Planned Disposition: Anticipated Discharge Date: Discharge Date: Expected LOS: Initial Reviewer: [email or web address] Initial Review Date: 11/04/2019 Generated: 11/04/19 6:45 pm Comments DCP- Discharge Planning Updated by [email or web address]: Ele Grimes on 11/04/19 4:[address] Patient Name: ELIZABETH DENTON Admission Status: ER Accout number: [id number] Admission Date: 11-04-2019 : 1955 Admission Diagnosis: Attending: BELINDA HITCHCOCK Current LOS: 1 Anticipated DC Date: Planned Disposition: Primary Insurance[place] [employer] Discharge Planning Comments: CM met with patient at bedside after explaining CM role and obtaining verbal consent. CM discussed availability / needs of home health, REHAB and medical equipment. PATIENT BROKE OUT IN TEARS, STATES [employer] AND SOLD EVERYTHING SHE OWNED, WAS LIVING WITH SISTER NOW CAN'T LIVE WITH HER. NEEDS HELP WITH PLACEMENT. SHE DOES NOT WANT A SENIOR LIVING. WILL ASSIST HER WITH PLACEMENT. NOT SURE IF SHE QUALIFIES FOR ASSISTED LIVING. WILL ASSIST IN PLACEMENT. WILL NEED OT AND PT CONSULTS, MAY NEED SNF AT TIME OF DC. WILL CONTINUE TO FOLLOW. Manager Communication: Ele Grimes Last DP export: 11/04/19 4:39 pm Patient Name: ELIZABETH DENTON Page [phone] at 1746 All edits/amendments must be made on the electronic document DICTATION DATE: 11/04/191744 MEDICAL PAYMENT POSTER: YORDY 11/04/191744 RPT#: [id number] DC DATE: STATUS: ADM IN [facility] [address] [place] [address] END OF REPORT
[2019-11-04 18:33] VITALS: BP 100/60
[2019-11-04 20:00] VITALS: BP 129/79
[2019-11-05] VITALS: BP 100/61
--- NOTE | 2019-11-05 02:41 | NUR ---
I have reviewed this patient and I concur with the Shift Assessment completed by the Licensed Practical Nurse today this shift.
--- NOTE | 2019-11-05 03:45 | NUR ---
PT VOMITTING IN TRASH CAN IN ROOM. INCONTINENT VOID DUE TO URGENCY. REPORTS ABDOMINAL PAIN 01/07. LINENS AND GOWN CHANGED. TRASH REMOVED FROM ROOM.EMESIS BAG GIVEN AND INFORMED OF NEXT AVAILABLE PRN N/V MEDICATION. NO FURTHER NEEDS.
[2019-11-05 04:00] VITALS: BP 123/83
[2019-11-05 06:04] LABS: BASOPHILS 0.4 % (0-2); EOSINOPHILS 0.7 % (0-7); HEMATOCRIT 38.6 % (36.0-48.0); HEMOGLOBIN 12.5 g/dL (12-16); IMMATURE GRANULOCYTES 0.1 % (0-5); LYMPHOCYTES 13.5 % (15-50); MCHC 32.4 g/dL (31.0-37.0); MCV 83.4 fL (80.0-100.0); MEAN PLATELET VOLUME 10.2 fL (7.4-10.4); MONOCYTES 9.5 % (2-11); NEUTROPHILS 75.8 % (40-80); PLATELET COUNT 148 10x3/uL (130-400); RBC 4.63 10x6/uL (4.00-5.40); RDW 18.3 % (11.5-14.5); WBC 8.1 10x3/uL (4.8-10.8)
[2019-11-05 06:20] LABS: ALBUMIN 2.7 g/dL (3.4-5.0); ANION GAP 13.4 mmol/L (8-16); BILIRUBIN - TOTAL 1.12 mg/dL (0.2-1.3); CALCIUM 8.9 mg/dL (8.5-10.1); CARBON DIOXIDE 19.8 mmol/L (21.0-32.0); POTASSIUM - SERUM 4.2 mmol/L (3.5-5.1); PROTEIN - SERUM 6.3 g/dL (6.4-8.2)
[2019-11-05 06:21] LABS: CREATININE - SERUM 1.1 mg/dL (0.6-1.3)
[2019-11-05 09:50] VITALS: BP 141/80
--- NOTE | 2019-11-05 11:20 | NUR ---
resting in bed, no distress noted, medicated for nausea x1, iv infusing
[2019-11-05 13:28] VITALS: BP 145/67
--- NOTE | 2019-11-05 14:06 | NUR ---
OT NOTE: PT STATES THAT SHE IS IN A FIB AND REPORTS THAT SHE IS VERY NAUSEOUS.. WILL ATTEMPT TO EVAL LATER. KATIE DENT, OTR/L
[2019-11-05 18:15] VITALS: BP 135/71
[2019-11-05 20:00] VITALS: BP 135/74
[2019-11-06] VITALS: BP 141/80
--- NOTE | 2019-11-06 00:13 | NUR ---
REC'D WALKING ROUNDS CHGE OF SHIFT IN BED REC'ING UPDRAFT TX.DENIES ANY RESP. DIFFICULTY AT PRESENT TIME WILL CONTINUE TO MONITOR FOR ANY CHGES. IN RESP STATUS AND FOLLOW CURRENT PLAN OF CARE.
--- NOTE | 2019-11-06 03:57 | NUR ---
I have reviewed this patient and I concur with the Shift Assessment completed by the Licensed Practical Nurse today this shift.
[2019-11-06 04:00] VITALS: BP 143/86
[2019-11-06 05:34] LABS: BASOPHILS 0.2 % (0-2); EOSINOPHILS 0.6 % (0-7); HEMATOCRIT 40.1 % (36.0-48.0); HEMOGLOBIN 12.7 g/dL (12-16); IMMATURE GRANULOCYTES 0.3 % (0-5); LYMPHOCYTES 14.5 % (15-50); MCH 26.5 pg (26.0-34.0); MCHC 31.7 g/dL (31.0-37.0); MCV 83.7 fL (80.0-100.0); MEAN PLATELET VOLUME 10.6 fL (7.4-10.4); MONOCYTES 10.1 % (2-11); NEUTROPHILS 74.3 % (40-80); PLATELET COUNT 145 10x3/uL (130-400); RBC 4.79 10x6/uL (4.00-5.40); RDW 18.1 % (11.5-14.5)
[2019-11-06 06:00] LABS: ALBUMIN 2.8 g/dL (3.4-5.0); BILIRUBIN - TOTAL 1.2 mg/dL (0.2-1.3); CALCIUM 8.8 mg/dL (8.5-10.1); CARBON DIOXIDE 23.5 mmol/L (21.0-32.0); CREATININE - SERUM 0.9 mg/dL (0.6-1.3); PROTEIN - SERUM 6.2 g/dL (6.4-8.2)
[2019-11-06 06:01] LABS: ANION GAP 8.5 mmol/L (8-16)
--- NOTE | 2019-11-06 07:30 | NUR ---
REC'D IN BED AWAKE AND ALERT. RESP EVEN AND UNLABORED WITH NO DISTRESS NOTED. CAN EXPRESS NEEDS AND WANTS. NO C/O NOTED OR VOICED. ASSESSMENT COMPLETED.C/L IN REACH AT BEDSIDE.
[2019-11-06 08:00] VITALS: BP 120/78
--- NOTE | 2019-11-06 11:37 | NUR ---
MEDICATED WITH MORPHINE FOR C/O ABD PX RATING 10/07. C/L IN REACH
[2019-11-06 12:00] VITALS: BP 131/74
--- NOTE | 2019-11-06 15:02 | NUR ---
OT NOTE: PT COMPLETED SUPINE TO SIT WITH SBA. PT COMPLETED SIT TO STAND WITH SBA. PT COMPLETED SIDE STEPPING WITH SBA. [id number] THANK YOU,JOSE MAUNEL SANDOVAL
[2019-11-06 16:00] VITALS: BP 136/67
[2019-11-06 20:00] VITALS: BP 129/72
--- NOTE | 2019-11-06 20:18 | NUR ---
I have reviewed this patient and I concur with the Shift Assessment completed by the Licensed Practical Nurse today this shift.
[2019-11-07] VITALS: BP 133/73
[2019-11-07 07:55] LABS: BASOPHILS 0.5 % (0-2); EOSINOPHILS 1.2 % (0-7); HEMATOCRIT 40.3 % (36.0-48.0); HEMOGLOBIN 12.8 g/dL (12-16); IMMATURE GRANULOCYTES 0.1 % (0-5); MCH 27.2 pg (26.0-34.0); MCHC 31.8 g/dL (31.0-37.0); MCV 85.6 fL (80.0-100.0); MEAN PLATELET VOLUME 9.8 fL (7.4-10.4); MONOCYTES 12.9 % (2-11); NEUTROPHILS 71.3 % (40-80); PLATELET COUNT 119 10x3/uL (130-400); RBC 4.71 10x6/uL (4.00-5.40); RDW 18.5 % (11.5-14.5); WBC 8.1 10x3/uL (4.8-10.8)
--- NOTE | 2019-11-07 07:56 | NUR ---
WAS MEDICATED WITH PHENEGRAN AT THIS TIME FOR NAUSEA. C/L IN REACH AT BEDSIDE.
--- NOTE | 2019-11-07 09:06 | MORECARE ---
CASE MANAGEMENT DISCHARGE SUMMARY PATIENT: ELIZABETH DENTON UNIT: [id number] ADM DATE: 11/04/19 AGE: 64 : 57 SEX: F ROOM/BED: D.2206 AUTHOR: AURELIADOC PHYSICIAN: REFERRING PHYSICIAN: BELINDA GUEVARA MD DATE OF SERVICE: 11/07/19 Discharge Plan Patient Name: ELIZABETH DENTON Facility: [facility]:[place] : 1955 Planned Disposition: Anticipated Discharge Date: Discharge Date: Expected LOS: Initial Reviewer: [id number] Initial Review Date: 11/04/2019 Generated: 11/07/19 10:06 am Comments DCP- Discharge Planning Updated by [email or web address]: Adilene Corado on 11/07/19 8:[address] I SPOKE WITH THE PATIENT AND HER SISTER, PATIENT WOULD LIKE TO GO TO INPATIENT REHAB AT [facility] HER FIRST CHOICE THE SECOND CHOICE IS [facility], [place], AND [place]. HER SISTER STATED THAT SHE CAN NOT COME BACK THERE. SHE WILL NEED PREAUT FOR INPATIENT REHAB DCP- Discharge Planning Updated by [email or web address]: Ele Grimes on 11/04/19 4:[address] Patient Name: ELIZABETH DENTON Admission Status: ER Accout number: [id number] Admission Date: 11-04-2019 : 1955 Admission Diagnosis: Attending: BELINDA HITCHCOCK Current LOS: 1 Anticipated DC Date: Planned Disposition: Primary Insurance: [place] PRIVATE OPTIONS [facility] Discharge Planning Comments: CM met with patient at bedside after explaining CM role and obtaining verbal consent. CM discussed availability / needs of home health, REHAB and medical equipment. PATIENT BROKE OUT IN TEARS, STATES [employer] AND SOLD EVERYTHING SHE OWNED, WAS LIVING WITH SISTER NOW CAN'T LIVE WITH HER. NEEDS HELP WITH PLACEMENT. SHE DOES NOT WANT A SNF. WILL ASSIST HER WITH PLACEMENT. NOT SURE IF SHE QUALIFIES FOR ASSISTED LIVING. WILL ASSIST IN PLACEMENT. WILL NEED OT AND PT CONSULTS, MAY NEED SNF AT TIME OF DC. WILL CONTINUE TO FOLLOW. Unhairing Inspector: Ele Grimes Coverage Notice Reviewer: [email or web address] - Adilene Corado Notice Issued Date-Time: 11/07/2019 9:00 Notice Type: Patient Choice Letter Notice Delivered To: Patient Relationship to Patient: Integrity Specialist Name: Delivery Method: HAND - Hand Delivered Vilma Days: Prior Verbal Notification: Recipient Understood Notice: Yes Recipient Signature: Yes Med Rec Note Co-signed by Attending: Coverage Notice Comment: [facility] Last DP export: 11/04/19 4:46 pm Patient Name: ELIZABETH DENTON Page [id number] at 0906 All edits/amendments must be made on the electronic document DICTATION DATE: 11/07/19905 CENA: YORDY 11/07/19905 RPT#: [id number] DC DATE: STATUS: ADM IN [facility] [address] [place] [address] END OF REPORT
[2019-11-07 09:49] LABS: ALBUMIN 2.7 g/dL (3.4-5.0); ANION GAP 12.2 mmol/L (8-16); BILIRUBIN - TOTAL 1.18 mg/dL (0.2-1.3); CREATININE - SERUM 0.9 mg/dL (0.6-1.3); POTASSIUM - SERUM 5.2 mmol/L (3.5-5.1); PROTEIN - SERUM 6.1 g/dL (6.4-8.2)
[2019-11-07 09:51] VITALS: BP 130/87
--- NOTE | 2019-11-07 10:34 | NUR ---
Rehab Prescreening Consult recieved and the chart has been reviewed. She has been in the ARU within the month, and discharged home with her sister. She has returned with same symptoms and states she cannot return to her sisters. She does not qualify for the ARU. Recommend a skilled facility for a longer stay or [facility] care. Discussed with the CM Ana Balbuena RN Clinical Liaison, Rehab
--- NOTE | 2019-11-07 10:46 | MORECARE ---
CASE MANAGEMENT DISCHARGE SUMMARY PATIENT: ELIZABETH DENTON UNIT: [id number] ADM DATE: 11/04/19 AGE: 64 : 57 SEX: F ROOM/BED: D.2204 AUTHOR: AURELIADOC PHYSICIAN: REFERRING PHYSICIAN: BELINDA GUEVARA MD DATE OF SERVICE: 11/07/19 Discharge Plan Patient Name: ELIZABETH DENTON Facility: [facility]:[place] : 1955 Planned Disposition: Anticipated Discharge Date: Discharge Date: Expected LOS: Initial Reviewer: [email or web address] Initial Review Date: 11/04/2019 Generated: 11/07/19 11:46 am Comments DCP- Discharge Planning Updated by [email or web address]: Adilene Corado on 11/07/19 8:[address] I SPOKE WITH THE PATIENT AND HER SISTER, PATIENT WOULD LIKE TO GO TO INPATIENT REHAB AT [facility] HER FIRST CHOICE THE SECOND CHOICE IS [facility], [place], AND [place]. HER SISTER STATED THAT SHE CAN NOT COME BACK THERE. SHE WILL NEED PREAUT FOR INPATIENT REHAB DCP- Discharge Planning Updated by [email or web address]: Ele Grimes on 11/04/19 4:[address] Patient Name: ELIZABETH DENTON Admission Status: ER Accout number: [id number] Admission Date: 11-04-2019 : 1955 Admission Diagnosis: Attending: BELINDA HITCHCOCK Current LOS: 1 Anticipated DC Date: Planned Disposition: Primary Insurance: [place] PR[employer] [facility] Discharge Planning Comments: CM met with patient at bedside after explaining CM role and obtaining verbal consent. CM discussed availability / needs of home health, REHAB and medical equipment. PATIENT BROKE OUT IN TEARS, STATES [employer] AND SOLD EVERYTHING SHE OWNED, WAS LIVING WITH SISTER NOW CAN'T LIVE WITH HER. NEEDS HELP WITH PLACEMENT. SHE DOES NOT WANT A DETENTION. WILL ASSIST HER WITH PLACEMENT. NOT SURE IF SHE QUALIFIES FOR ASSISTED LIVING. WILL ASSIST IN PLACEMENT. WILL NEED OT AND PT CONSULTS, MAY NEED SNF AT TIME OF DC. WILL CONTINUE TO FOLLOW. Supervisor Mechanic Boilermaking: Ele Grimes External Providers External Provider: [facility] Next Contact Date: Service Request Date: Service Type: Resolution: Reviewer: Comments: Coverage Notice Reviewer: [id number] - Adilene Corado Notice Issued Date-Time: 11/07/2019 9:00 Notice Type: Patient Choice Letter Notice Delivered To: Patient Relationship to Patient: Dial Maker Name: Delivery Method: HAND - Hand Delivered Vilma Days: Prior Verbal Notification: Recipient Understood Notice: Yes Recipient Signature: Yes Med Rec Note Co-signed by Attending: Coverage Notice Comment: [facility] INPATIENT REHAB 2)[facility] Last DP export: 11/07/19 8:06 a Patient Name: ELIZABETH DENTON Page [phone] at 1046 All edits/amendments must be made on the electronic document DICTATION DATE: 11/07/19 1046 ASSAULT AMPHIBIOUS VEHICLE CREWMAN: YORDY 11/07/19 1046 RPT#: [id number] DC DATE: STATUS: ADM IN [facility] [address] [place] [address] END OF REPORT
--- NOTE | 2019-11-07 11:01 | MORECARE ---
CASE MANAGEMENT DISCHARGE SUMMARY PATIENT: ELIZABETH DENTON UNIT: [id number] ADM DATE: 11/04/19 AGE: 64 : 57 SEX: F ROOM/BED: D.2204 AUTHOR: AURELIA,DOC PHYSICIAN: REFERRING PHYSICIAN: BELINDA GUEVARA MD DATE OF SERVICE: 11/07/19 Discharge Plan Patient Name: ELIZABETH DENTON Facility: [facility]:[place] : 1955 Planned Disposition: Anticipated Discharge Date: Discharge Date: Expected LOS: Initial Reviewer: [id number] Initial Review Date: 11/04/2019 Generated: 11/07/19 12:00 pm Comments DCP- Discharge Planning Updated by [email or web address]: Adilene Corado on 11/07/19 9:[address] MONI WITH INPATIENT REHAB CALLED AND STATED THAT THEY CAN NOT ACCEPT HER SHE WILL NEED SKILLED. I HAVE SENT THE REFERRAL TO [facility] FOR [facility] DCP- Discharge Planning Updated by [email or web address]: Adilene Corado on 11/07/19 8:[address] I SPOKE WITH THE PATIENT AND HER SISTER, PATIENT WOULD LIKE TO GO TO INPATIENT REHAB AT [facility] HER FIRST CHOICE THE SECOND CHOICE IS [facility], [place], AND [place]. HER SISTER STATED THAT SHE CAN NOT COME BACK THERE. SHE WILL NEED PRE[facility] FOR INPATIENT REHAB DCP- Discharge Planning Updated by [email or web address]: Eleryan Grimes on 11/04/19 4:[address] Patient Name: ELIZABETH DENTON Admission Status: ER Accout number: [id number] Admission Date: 11-04-2019 : 1955 Admission Diagnosis: Attending: BELINDA HITCHCOCK Current LOS: 1 Anticipated DC Date: Planned Disposition: Primary Insurance: [place] [employer] [facility] Discharge Planning Comments: CM met with patient at bedside after explaining CM role and obtaining verbal consent. CM discussed availability / needs of home health, REHAB and medical equipment. PATIENT BROKE OUT IN TEARS, STATES [employer] AND SOLD EVERYTHING SHE OWNED, WAS LIVING WITH SISTER NOW CAN'T LIVE WITH HER. NEEDS HELP WITH PLACEMENT. SHE DOES NOT WANT A FCI. WILL ASSIST HER WITH PLACEMENT. NOT SURE IF SHE QUALIFIES FOR ASSISTED LIVING. WILL ASSIST IN PLACEMENT. WILL NEED OT AND PT CONSULTS, MAY NEED SNF AT TIME OF DC. WILL CONTINUE TO FOLLOW. Cardiovascular Rn: Ele Grimes Coverage Notice Reviewer: [id number] Leonel Corado Notice Issued Date-Time: 11/07/2019 9:00 Notice Type: Patient Choice Letter Notice Delivered To: Patient Relationship to Patient: Auto Top Mechanic Name: Delivery Method: HAND - Hand Delivered Vilma Days: Prior Verbal Notification: Recipient Understood Notice: Yes Recipient Signature: Yes Med Rec Note Co-signed by Attending: Coverage Notice Comment: [facility] [facility] Last DP export: 11/07/19 9:46 a Patient Name: ELIZABETH DENTON Page [phone] at 1101 All edits/amendments must be made on the electronic document DICTATION DATE: 11/07/19 1100 BOWL TOPPER: YORDY 11/07/19 1100 RPT#: [id number] DC DATE: STATUS: ADM IN [facility] [address] [place] [address] END OF REPORT
--- NOTE | 2019-11-07 14:17 | NUR ---
WAS MEDICATED WITH PHENERGAN AT THIS TIME FOR VOMITING. C/L IN REACH AT BEDSIDE.
--- NOTE | 2019-11-07 14:20 | NUR ---
OT NOTE: PT COMPLETED SUPINE TO SIT WITH SBA. PT COMPLETED SIT TO STAND WITH SBA/CGA. PT COMPLETED SIDE STEPPING WITH CGA. NURSING PRESENT. PT COMPLETED HAND HYGIENE WITH SETUP. [phone] THANK YOU,JOSE MANUEL SANDOVAL
--- NOTE | 2019-11-07 16:04 | NUR ---
Attempted PIV start x4 unsuccessfully. Twice on Rt upper extremity and twice on Lt upper extremity. Patient's primary nurse,Kianna MILNER, notified.
--- NOTE | 2019-11-07 17:16 | MORECARE ---
CASE MANAGEMENT DISCHARGE SUMMARY PATIENT: ELIZABETH DENTON UNIT: [id number] ADM DATE: 11/04/19 AGE: 64 : 57 SEX: F ROOM/BED: D.2208 AUTHOR: AURELIA,DOC PHYSICIAN: REFERRING PHYSICIAN: BELNIDA GUEVARA MD DATE OF SERVICE: 11/07/19 Discharge Plan Patient Name: ELIZABETH DENTON Facility: [facility]:[place] : 1955 Planned Disposition: Anticipated Discharge Date: Discharge Date: Expected LOS: Initial Reviewer: [id number] Initial Review Date: 11/04/2019 Generated: 11/07/19 6:15 pm Comments DCP- Discharge Planning Updated by [email or web address]: Adilene Corado on 11/07/19 4:[address] [facility]LA WITH [facility] STATED THAT THEY ARE RUNNING HER INFORMATION AND COULD POSSIBILITY BE ACCEPTED ON SUNDAY? SHE WILL ALSO NEED A MONIE (I WILL DO THAT ON SUNDAY) DCP- Discharge Planning Updated by [email or web address]: Adilene Corado on 11/07/19 9:[address] [facility] WITH INPATIENT REHAB CALLED AND STATED THAT THEY CAN NOT ACCEPT HER SHE WILL NEED SKILLED. I HAVE SENT THE REFERRAL TO [facility] FOR [place] DCP- Discharge Planning Updated by [email or web address]: Adilene Corado on 11/07/19 8:[address] I SPOKE WITH THE PATIENT AND HER SISTER, PATIENT WOULD LIKE TO GO TO INPATIENT REHAB AT [facility] HER FIRST CHOICE THE SECOND CHOICE IS [place], [place], AND [place]. HER SISTER STATED THAT SHE CAN NOT COME BACK THERE. SHE WILL NEED PRE[facility] FOR INPATIENT REHAB DCP- Discharge Planning Updated by [email or web address]: Eleryan Grimes on 11/04/19 4:[address] Patient Name: ELIZABETH DENTON Admission Status: ER Accout number: [id number] Admission Date: 11-04-2019 : 1955 Admission Diagnosis: Attending: BELINDA HITCHCOCK Current LOS: 1 Anticipated DC Date: Planned Disposition: Primary Insurance: [place] [employer] [place] Discharge Planning Comments: CM met with patient at bedside after explaining CM role and obtaining verbal consent. CM discussed availability / needs of home health, REHAB and medical equipment. PATIENT BROKE OUT IN TEARS, STATES [employer] AND SOLD EVERYTHING SHE OWNED, WAS LIVING WITH SISTER NOW CAN'T LIVE WITH HER. NEEDS HELP WITH PLACEMENT. SHE DOES NOT WANT A SHELTER. WILL ASSIST HER WITH PLACEMENT. NOT SURE IF SHE QUALIFIES FOR ASSISTED LIVING. WILL ASSIST IN PLACEMENT. WILL NEED OT AND PT CONSULTS, MAY NEED SNF AT TIME OF DC. WILL CONTINUE TO FOLLOW. Radar Operator: Ele Grimes Coverage Notice Reviewer: [id number] Leonel Corado Notice Issued Date-Time: 11/07/2019 9:00 Notice Type: Patient Choice Letter Notice Delivered To: Patient Relationship to Patient: Quarry Equipment Operator Name: Delivery Method: HAND - Hand Delivered Vilma Days: Prior Verbal Notification: Recipient Understood Notice: Yes Recipient Signature: Yes Med Rec Note Co-signed by Attending: Coverage Notice Comment: [facility] Last DP export: 11/07/19 10:01 a Patient Name: ELIZABETH DENTON Page [phone] at 1716 All edits/amendments must be made on the electronic document DICTATION DATE: 11/07/191714 RRT: YORDY 11/07/191714 RPT#: [id number] DC DATE: STATUS: ADM IN [facility] [address] [place] [address] END OF REPORT
--- NOTE | 2019-11-07 17:17 | NUR ---
was medicated with norco for c/o generalized pain. c/l in reach at bedside.
[2019-11-07 17:40] VITALS: BP 166/101
--- NOTE | 2019-11-07 17:55 | NUR ---
I have reviewed this patient and I concur with the Shift Assessment completed by the Licensed Practical Nurse today this shift.
--- NOTE | 2019-11-07 19:07 | NUR ---
STRUCTURAL ENGINEERING TECHNICIAN WAS NOTIFIED THAT PT HAS NO IV ACCESS AND THAT THE VENOUS ACCESS NURSE HAD BEEN UP AND STICK HER X 4 WITH NO SUCCESS. REC'D ORDERS FOR REGLAN 10 MG ACHS, AND NORCO 7.5 MG Q 4 HRS.
[2019-11-07 20:00] VITALS: BP 137/100
[2019-11-08 07:44] LABS: ALBUMIN 3.1 g/dL (3.4-5.0); BILIRUBIN - TOTAL 1.53 mg/dL (0.2-1.3); CALCIUM 9.7 mg/dL (8.5-10.1); CARBON DIOXIDE 22.1 mmol/L (21.0-32.0); CREATININE - SERUM 1.2 mg/dL (0.6-1.3); PROTEIN - SERUM 6.9 g/dL (6.4-8.2)
[2019-11-08 07:45] LABS: ANION GAP 13.1 mmol/L (8-16); POTASSIUM - SERUM 5.2 mmol/L (3.5-5.1)
[2019-11-08 07:57] LABS: HEMATOCRIT 41.6 % (36.0-48.0); HEMOGLOBIN 13.5 g/dL (12-16); LYMPHOCYTES 14.1 % (15-50); MCH 26.8 pg (26.0-34.0); MCHC 32.5 g/dL (31.0-37.0); MEAN PLATELET VOLUME 10.5 fL (7.4-10.4); NEUTROPHILS 74.3 % (40-80); PLATELET COUNT 141 10x3/uL (130-400); RBC 5.03 10x6/uL (4.00-5.40); RDW 18.9 % (11.5-14.5)
[2019-11-08 07:59] LABS: MCV 82.7 fL (80.0-100.0); WBC 10.2 10x3/uL (4.8-10.8)
--- NOTE | 2019-11-08 08:15 | NUR ---
SHE IS TALKING IN HER SLEEP, SHAKING. SHE KNOWS WHAT YEAR IT IS ETC, BUT IS IMPULSIVE WHEN SHE GETS UP, KEEPS TAKING OFF HER OXYGEN. SHE IS VOIDING IN THE FLOOR. SHE REFUSES TO HAVE THE BED ALARM ON. THE CALL LIGHT IS WITHIN REACH.
[2019-11-08 08:51] VITALS: BP 162/100
[2019-11-08 14:02] VITALS: BP 151/96
[2019-11-08 17:09] VITALS: BP 163/101
--- NOTE | 2019-11-08 17:30 | NUR ---
SHE HAS VOMITED. PRN PHENERGAN GIVEN. THE CALL LIGHT IS WITHIN REACH.
[2019-11-08 20:00] VITALS: BP 156/96
--- NOTE | 2019-11-08 23:36 | NUR ---
PT VOMITING. GAVE PHENERGAN 25MG IM TO RIGHT VENTROGLUTEAL. GREENISH FLUID LEAKING FROM FORMER PEG TUBE SITE. APPLIED GAUZE SPONGES AND TEGADERM. CHANGED BEDDING AND GOWN. PT SHORT OF BREATH AND ANXIOUS. OXYGEN AT 3L/NC, SAT 95%. NO OTHER NEEDS. WILL REASSESS AND CONTINUE TO MONITOR.
--- NOTE | 2019-11-09 03:20 | NUR ---
PT HAS WATERY DIARRHEA. UP TO BEDSIDE COMMODE. PT IS DYSPENIC ON EXERTION. OXYGEN AT 3.5L/NC. WILL CONTINUE TO MONITOR.
[2019-11-09 04:00] VITALS: BP 159/99
[2019-11-09 05:38] LABS: HEMATOCRIT 40.5 % (36.0-48.0); HEMOGLOBIN 13.3 g/dL (12-16); LYMPHOCYTES 10.5 % (15-50); MCH 27.1 pg (26.0-34.0); MCHC 32.8 g/dL (31.0-37.0); MCV 82.5 fL (80.0-100.0); MEAN PLATELET VOLUME 9.6 fL (7.4-10.4); NEUTROPHILS 82.2 % (40-80); PLATELET COUNT 161 10x3/uL (130-400); RBC 4.91 10x6/uL (4.00-5.40); RDW 18.9 % (11.5-14.5); WBC 12.2 10x3/uL (4.8-10.8)
[2019-11-09 06:11] LABS: ANION GAP 13.6 mmol/L (8-16); BILIRUBIN - TOTAL 1.57 mg/dL (0.2-1.3); CALCIUM 9.4 mg/dL (8.5-10.1); CARBON DIOXIDE 21.5 mmol/L (21.0-32.0); CREATININE - SERUM 1.4 mg/dL (0.6-1.3); POTASSIUM - SERUM 5.1 mmol/L (3.5-5.1); PROTEIN - SERUM 6.5 g/dL (6.4-8.2)
--- NOTE | 2019-11-09 08:28 | NUR ---
PT SITTING UP IN BED, ALERT AND ORIENTED AT THIS TIME. NO S/S OF DISTRESS AT THIS TIME, DENIES NEEDS, WILL CONT TO MONITOR.
[2019-11-09 08:59] VITALS: BP 136/98
[2019-11-09 12:52] VITALS: BP 149/94
--- NOTE | 2019-11-09 15:36 | NUR ---
PT IS BECOMING INCREASINGLY CONFUSED, IN TEARS BECAUSE SHE STATES HER AND SISTER HAVE BOTH CAME AND LEFT HER WITHOUT SAYING BYE AND SHE HAS NO IDEA WHERE THEY ARE AND NOBODY HAS BEEN IN HER ROOM TO SEE HER TODAY. WILL CONT TO MONITOR.
[2019-11-09 17:04] VITALS: BP 128/95
--- NOTE | 2019-11-09 20:08 | NUR ---
TELEMETRY CALLED TO SAY 2208 IS OFF THE MONITOR. WENT TO ROOM TO FIND PT LYING ON BED NAKED. HER GOWN, OXYGEN, TELEMETRY AND BED PADS ALL IN TRASH. PT IS CONFUSED. PUT OXYGEN BACK ON PT AND ASKED WHY SHE HAD TAKEN EVERYTHING OFF. SHE STATED SHE WAS TRYING TO CALL HER SISTER. SAT PT UP TO PUT GOWN ON AND NEW PADS ON BED. UNABLE TO GET PULSE OX TO READ OXYGEN SAT. CALLED RAPID RESPONSE AT 2011. PT'S COMPLEXION DUSKY, NOT RESPONDING TO QUESTIONS AND FELL BACK ONTO BED. CALLED NATASHA LOZANO AT 2012. CODE TEAM RESPONDING. SEE CODE BLUE SHEET.
--- NOTE | 2019-11-09 20:45 | NUR ---
RECIEVED PT POST CODE ACCOMPANIED BY MEDICAL STAFF. MD AT BEDSIDE. STARTED ON VENTILATOR PER MD. NO VISUAL CUES OF DISTRESS NOTED. WILL MONITOR.
--- NOTE | 2019-11-09 20:46 | NUR ---
PT WITH HR, BP WNL, RADIOLOGY IN ROOM FOR POST INTUBATION CXR. DR DOE EXITED ROOM.
[2019-11-09 21:40] LABS: HEMATOCRIT 38.4 % (36.0-48.0); HEMOGLOBIN 12.5 g/dL (12-16); MCHC 32.6 g/dL (31.0-37.0); MCV 82.9 fL (80.0-100.0); MEAN PLATELET VOLUME 9.8 fL (7.4-10.4); NEUTROPHILS 82.3 % (40-80); PLATELET COUNT 154 10x3/uL (130-400); RBC 4.63 10x6/uL (4.00-5.40); RDW 19.1 % (11.5-14.5); WBC 12.8 10x3/uL (4.8-10.8)
[2019-11-09 21:57] LABS: ALBUMIN 2.6 g/dL (3.4-5.0); ANION GAP 12.5 mmol/L (8-16); BILIRUBIN - TOTAL 1.39 mg/dL (0.2-1.3); CALCIUM 8.3 mg/dL (8.5-10.1); CARBON DIOXIDE 20.8 mmol/L (21.0-32.0); CREATININE - SERUM 1.6 mg/dL (0.6-1.3); POTASSIUM - SERUM 5.3 mmol/L (3.5-5.1); PROTEIN - SERUM 6.1 g/dL (6.4-8.2); TROPONIN-I 0.057 ng/mL (0.000-0.060)
--- NOTE | 2019-11-09 21:59 | NUR ---
STRICT NPO PER DR GUEVARA
[2019-11-09 22:00] VITALS: BP 95/53
--- NOTE | 2019-11-09 22:13 | NUR ---
DR GUEVARA SPOKE WITH DR HASSAN. SONYA AWARE OF CODE AND INTUBATION.
[2019-11-09 23:00] VITALS: BP 108/74
--- NOTE | 2019-11-09 23:34 | OP ---
PATIENT NAME: ELIZABETH DENTON MEDICAL RECORD: [id number] :57 LOCATION:D.[facility] D.2316 ADMISSION DATE:11/04/19 SURGEON: SANTY DOE MD DATE OF OPERATION: 11/09/2019 PREOPERATIVE DIAGNOSES: 1. Cardiopulmonary arrest. 2. Lack of IV access. 3. Seizure activity after the return of spontaneous circulation. POSTOPERATIVE DIAGNOSES: 1. Cardiopulmonary arrest. 2. Lack of IV access. 3. Seizure activity after the return of spontaneous circulation. PROCEDURE: 1. Atraumatic insertion of 7.0 mm endotracheal tube. 2. Insertion of right groin common femoral venous triple lumen central venous line. SURGEON: Santy Doe MD No consent could be obtained due to the urgency of this emergent situation. During the cardiopulmonary arrest utilizing a Acharya 2 laryngoscope, I visualized the cords easily. This was direct visualization. I then inserted a 7.0 mm endotracheal tube on the first try. A cuff was inflated. The breath sounds were equal bilaterally. We checked for end tidal CO2 and there was end tidal CO2 present. We continued to ventilate the patient. We tapped the endotracheal tube around 23 cm. It was affixed at that site. I then elected to insert a central line as no peripheral access had been obtainable. It was going to be a little crawled up at the head of the bed, so I elected to place a groin line. The right groin was sterilely prepped and draped. I then percutaneously accessed the common femoral vein with some difficulty due to the fact the patient was moving around a great bit. I was able to get the guidewire to advance. A small skin shayy was accomplished. A vessel dilator was used to dilate the subcutaneous tract. A 20 cm triple lumen central venous catheter was inserted to the hub. We began using it immediately. It was sutured in place times 2. TRANSINT:[id number] Voice Confirmation ID: [id number] DOCUMENT ID: [id number] SANTY DOE MD at 2334 CC: [id number] DICTATION DATE: 11/09/19 2147 SENIOR DESIGNER/ART DIRECTOR: 11/09/19 2310 ADM IN [place] [id number] [place] [address]
--- NOTE | 2019-11-09 23:34 | CN ---
PATIENT NAME:ELIZABETH DENTON MEDICAL RECORD: [id number] : 57 [facility] ADMIT DATE: 11/04/19 ACCOUNT: [id number] CONSULTING PHYSICIAN: YOLIS DOE MD REFERRING PHYSICIAN: KEVON SCHAEFFER MD DATE OF CONSULTATION: 11/09/2019 CHIEF COMPLAINT: Cardiopulmonary arrest. HISTORY OF PRESENT ILLNESS: Some of the physical exam findings may be listed under this history of present illness. Portions of the review of systems may be listed in the history of present illness as well. When I saw this patient, I knew virtually nothing about her history. Sravan mccarty was announced overhead. I was the first physician to arrive at the scene. The patient was apneic and pulseless. We began ventilating the patient with a bag valve mask. At about the same time, the chest compressions were started on a backboard. Before we had a chance to even hook the patient up to the monitor, she regained a pulse and there was muscular activity in the upper extremities. Soon afterwards, she became pulseless again. While we continued to ventilate her with a bag valve mask chest compressions resumed immediately. I intubated the patient (which is dictated separately). We began ventilating the patient through the endotracheal tube. Chest compressions continued until she had the return of spontaneous circulation. Peripheral IVaccess was attempted and was not successful. We felt that while she had a pulse, it was better to transport her to the intensive care unit, which was only a couple of minutes away and we could proceed with additional interventions there, with more room to work in and additional staff. We used a ACLS as a guide to the resuscitative efforts. Dr. Rosas, who was running the code blue resuscitation and myself and a group of other ancillary personnel accompanied the patient to the intensive care unit. There, I inserted a central line. We identified that the patient was having seizure activity after the cardiopulmonary arrest, when there had been a return of spontaneous circulation. Dr. Rosas ordered IV medications including a paralytic, in order to assist with insertion of the central line as the patient was moving all of her extremities. Additionally, propofol was given as a sedative and to break her seizures. I stayed and gave some additional orders to the nursing staff. Additionally, I stayed and viewed the chest x-ray images. We had to pull back on the endotracheal tube twice as the first image showed that there was a right mainstem intubation and then the 2nd showed that the tip of the endotracheal tube was either at the carla or a CONSULT REPORT [id number] ELIZABETH DENTON little bit into the right main stem. We then pulled back another 2 cm and it appeared that the endotracheal tube was above the carla. It was affixed at that site. The total critical care time was 45 minutes, excluding the time necessary for the performance of the 2 procedures intubation as well as central venous line placement. Due to the urgency of the situation, there was no time to obtain consent. Dr. Kevon Schaeffer was notified of the patient's condition and it is my understanding he is on his way to the hospital. Past medical and surgical history, at the onset of the code blue resuscitation, was unknown. Reportedly, the patient wants go home today. One of the nurses thought that there was some problem with a feeding tube, which is no longer present. There is a bandage on the upper epigastrium. ALLERGIES: None known at the time of the cardiopulmonary arrest. HOME MEDICINES: None known at the time of the cardiopulmonary arrest. Current labs were not known at the time of the code blue resuscitation. REVIEW OF SYSTEMS: Unobtainable due to the fact the patient was in cardiopulmonary arrest. PHYSICAL EXAMINATION: GENERAL: The patient appears acutely ill. She also appears chronically ill. EARS: External ears appear normal. EYES: Unable to assess as she will not open her eyes and they were fixed during the cardiopulmonary resuscitation. PULMONARY: She was initially being ventilated through bag valve mask prior to intubation. ABDOMEN: Obese and protuberant with a panniculus. INTEGUMENT: There is an intertriginous rash. EXTREMITIES: Peripheral cyanosis is present. NEUROLOGIC: Unable to assess due to the fact the patient is in cardiopulmonary arrest. IMPRESSION: Cardiopulmonary arrest with return of spontaneous circulation. Post resuscitation seizures PLAN: The procedures are dictated separately. The patient has been successfully conveyed to the intensive care unit. She has a blood pressure with a systolic of 130 on FiO2 of 1.0. Her O2 saturations are 100%. A central venous line has been inserted. Additionally, an endotracheal tube was successfully inserted atraumatically. CCT: Total of 45 minutes of critical care time. This does not include the time spent performing procedures. The time does include, but was not limited to: Performing chest compressions, ventilating the patient with bag valve mask, checking for CONSULT REPORT [id number] ELIZABETH DENTON pulses, examining the patient, obtaining history from the chart as well as from the nurses. There was an additional subsequent chart review after there was the return of spontaneous circulation. Orders were given to the nurses and respiratory therapists regarding medications and interventions. Viewing the x-ray images and instructing the respiratory staff to reposition the endotracheal tube. TRANSINT:[id number] Voice Confirmation ID: [id number] DOCUMENT ID: [id number] YOLIS DOE MD at 2334 CC: [id number] DICTATION DATE: 11/09/192143 FRAME TABLE OPERATOR: 11/09/19 2254 ADM IN [id number] [place] [address]
[2019-11-10] VITALS (26 sets, daily range): BP systolic 85–136; BP diastolic 42–88; BMI 51.7
--- NOTE | 2019-11-10 05:34 | NUR ---
DR GARCIA NOTIFIED OF CODE/POST EVENTS, NO FURTHER ORDERS AT THIS TIME.
[2019-11-10 05:40] LABS: BASOPHILS 0.1 % (0-2); EOSINOPHILS 0.8 % (0-7); HEMATOCRIT 35.1 % (36.0-48.0); HEMOGLOBIN 11.6 g/dL (12-16); IMMATURE GRANULOCYTES 0.5 % (0-5); LYMPHOCYTES 10.3 % (15-50); MCH 27.3 pg (26.0-34.0); MCV 82.6 fL (80.0-100.0); MEAN PLATELET VOLUME 9.6 fL (7.4-10.4); NEUTROPHILS 78.3 % (40-80); RBC 4.25 10x6/uL (4.00-5.40); RDW 18.7 % (11.5-14.5)
[2019-11-10 05:47] LABS: PLATELET COUNT 90 10x3/uL (130-400); WBC 9.1 10x3/uL (4.8-10.8)
[2019-11-10 06:05] LABS: ALBUMIN 2.3 g/dL (3.4-5.0); ANION GAP 9.1 mmol/L (8-16); BILIRUBIN - TOTAL 1.34 mg/dL (0.2-1.3); CREATININE - SERUM 1.2 mg/dL (0.6-1.3); POTASSIUM - SERUM 4.6 mmol/L (3.5-5.1); PROTEIN - SERUM 5.3 g/dL (6.4-8.2)
[2019-11-10 06:21] LABS: CARBON DIOXIDE 26.5 mmol/L (21.0-32.0)
[2019-11-10 11:23] LABS: INR 1.48 (0.85-1.17); PROTIME 17.8 SECONDS (11.6-15.0)
--- NOTE | 2019-11-10 12:43 | NUR ---
Nutrition follow-up: Pt now in ICU s/p code blue; intubated, sedated with propofol Labs reviewed wt: 265# +BM - lactulose Strict NPO at this time per physician When medically feasible, recommend starting Pulmocare @ 20 ml/hr with increase to goal rate of 60 ml/hr RDN following.
--- NOTE | 2019-11-10 14:18 | NUR ---
TO CT AND BACK TO ROOM
[2019-11-10 14:49] LABS: HEMATOCRIT 33.8 % (36.0-48.0); HEMOGLOBIN 11.2 g/dL (12-16)
[2019-11-10 15:08] LABS: BILIRUBIN NEGATIVE (NEGATIVE); GLUCOSE NEGATIVE (NEGATIVE); KETONE NEGATIVE (NEGATIVE); NITRITE NEGATIVE (NEGATIVE); UROBILINOGEN NORMAL (NORMAL)
[2019-11-10 15:09] LABS: EPITHELIAL CELLS 0-5 /hpf (0-5); RED CELLS - URINE OCC /hpf (0-5); WHITE CELLS - URINE 0-5 /hpf (NEGATIVE)
[2019-11-10 15:10] LABS: BACTERIA FEW /hpf (NEGATIVE)
[2019-11-10 15:12] LABS: PLATELET ESTIMATE DECREASED
--- NOTE | 2019-11-10 18:31 | NUR ---
LEVOPHED STARTED B/P 70/50
[2019-11-10 18:44] LABS: HEMATOCRIT 34.6 % (36.0-48.0); HEMOGLOBIN 11.2 g/dL (12-16)
[2019-11-11] VITALS (24 sets, daily range): BP systolic 80–130; BP diastolic 40–80
[2019-11-11 06:43] LABS: HEMATOCRIT 35.8 % (36.0-48.0); HEMOGLOBIN 11.5 g/dL (12-16); LYMPHOCYTES 7.8 % (15-50); MCH 26.9 pg (26.0-34.0); MCHC 32.1 g/dL (31.0-37.0); MCV 83.8 fL (80.0-100.0); MEAN PLATELET VOLUME 10.8 fL (7.4-10.4); NEUTROPHILS 83.6 % (40-80); PLATELET COUNT 88 10x3/uL (130-400); RBC 4.27 10x6/uL (4.00-5.40); RDW 19.6 % (11.5-14.5)
[2019-11-11 07:14] LABS: ALBUMIN 2.1 g/dL (3.4-5.0); ALKALINE PHOSPHATASE 85 U/L (30-120); ALT (SGPT) 21 U/L (10-68); BILIRUBIN - TOTAL 1.41 mg/dL (0.2-1.3); CALC OSMOLALITY 260 mosm/kg (275-300); CALCIUM 7.2 mg/dL (8.5-10.1); CARBON DIOXIDE 22.9 mmol/L (21.0-32.0); CHLORIDE - SERUM 102 mmol/L (98-107); GLUCOSE 86 mg/dL (74-106); POTASSIUM - SERUM 4.6 mmol/L (3.5-5.1); PROTEIN - SERUM 5.1 g/dL (6.4-8.2); SODIUM 131 mmol/L (136-145); UREA NITROGEN 9 mg/dL (7-18); eGFR NON AFRICAN AMERICAN 77 mL/min (90-120)
[2019-11-11 07:16] LABS: CREATININE - SERUM 0.8 mg/dL (0.6-1.3)
--- NOTE | 2019-11-11 12:33 | NUR ---
SPOKE WITH PT FAMILY MEMBER. UPDATE GIVEN. ANSWERED QUESTIONS. WILL CONTINUE TO MONITOR
--- NOTE | 2019-11-11 13:36 | NUR ---
1010 CPAP 1135 EXTUBATED
[2019-11-12] VITALS (15 sets, daily range): BP systolic 96–121; BP diastolic 57–88
[2019-11-12 04:50] LABS: HEMATOCRIT 36.7 % (36.0-48.0); HEMOGLOBIN 11.8 g/dL (12-16); LYMPHOCYTES 13.3 % (15-50); MCH 27.1 pg (26.0-34.0); MCHC 32.2 g/dL (31.0-37.0); MCV 84.2 fL (80.0-100.0); NEUTROPHILS 71.6 % (40-80); PLATELET COUNT 88 10x3/uL (130-400); RBC 4.36 10x6/uL (4.00-5.40); RDW 20.1 % (11.5-14.5); WBC 8.7 10x3/uL (4.8-10.8)
[2019-11-12 05:00] LABS: ALBUMIN 2.3 g/dL (3.4-5.0); ANION GAP 8.6 mmol/L (8-16); BILIRUBIN - TOTAL 1.71 mg/dL (0.2-1.3); CALCIUM 7.9 mg/dL (8.5-10.1); CARBON DIOXIDE 25.1 mmol/L (21.0-32.0); POTASSIUM - SERUM 4.7 mmol/L (3.5-5.1); PROTEIN - SERUM 5.7 g/dL (6.4-8.2)
[2019-11-12 05:09] LABS: CREATININE - SERUM 1.2 mg/dL (0.6-1.3)
--- NOTE | 2019-11-12 10:53 | NUR ---
Nutrition follow-up: Pt extubated 11/10 Diet has advanced to regular puree with honey thick liquids NO po intake recorded Wt: 265# +BM Will provide food choices with selective menus and honor food prefernces within diet restrictions. RDN following.
--- NOTE | 2019-11-12 19:30 | NUR ---
BEDSIDE SHIFT REPORTING COMPLETED. INTRODUCED MYSELF TO PT PRIMARY RN FOR [facility]JACEY SHIFT. SHIFT ASSESSMENT COMPLETED. PT IS A&O SITTING UP IN BED RESTING QUIETLY. PTS VOICE IS VERY HOARSE AND SORE SHE WAS EXTUBATED YESTERDAY. RR NONLABORED AT THIS TIME WITH NC @5L IN PLACE. EXPIRATORY WHEEZING NOTED THROUGHOUT ALL LOBES. PT STATES SHE IS COUGHING UP SPUTUM OCCASIONALLY. PT HAS A R.GROIN TRIPLE LUMEN CVL WITH BIOPATCH AND SWAB CAPS INTACT. DRSG ADHERED TO SKIN. TREVINO CATHETER DRAINING DARK URINE OFF R.SIDE OF BED WITH STAT LOCK SECURED TO L.INNER THIGH. PTS BILAT ARMS AND LOWER EXTREMETIES ARE SLIGHTLY SWOLLEN, WILL ELEVATE AND SEE IF IT HELPS. PT DENIES ANY IMMEDIATE NEEDS AT THIS TIME. CL IN REACH, BED IN LOWEST, SIDE RAILS X2. WILL REVIEW CHART AND ORDERS AND CPOC.
--- NOTE | 2019-11-12 21:37 | NUR ---
PROVIDED PT WITH ALL HER NIGHTLY MEDICATIONS WHOLE WITH APPLESAUCE AND PT SWALLOWED WITHOUT ANY COUGHING OR DIFFICULTIES. PT ALSO WAS ABLE TO DRINK 450CC OF HONEY THICKENED CRANBERRY JUICE. REPOSITIONED PT IN BED FOR COMFORT AND ELEVATED BILAT FEET TO HELP REDUCE SWELLING. PT VOICED RELIEF IN PAIN AFTER PRN TORADOL WAS GIVEN. PT WATCHING TV AND DENIES ANY FURTHER NEEDS AT THIS TIME. CL IN REACH, BED IN LOWEST, SIDE RAILS X2. WILL CPOC.
--- NOTE | 2019-11-12 22:25 | NUR ---
PT C/O HER LASIX NOT BEING GIVEN AND STATES SHE NORMALLY TAKES 80MG DAILY. DISCUSSED WITH AND WILL GIVE A ONE TIME IV DOSE NOW AND THEN HE WILL ADDRESS IT TOMORROW.
[2019-11-13] VITALS (10 sets, daily range): BP systolic 117–149; BP diastolic 55–93
--- NOTE | 2019-11-13 01:12 | NUR ---
PT CALLED C/O SEVERE STABBING STERNUM PAIN. PT STATES IT COMES AND GOES BUT DOES NOT RADIATE. ITS SLIGHTLY TOO EARLY FOR PTS PRN TORADOL. I REPOSITIONED PT AND TALKED WITH HER FOR A LITTLE BIT TO HELP CALM HER DOWN SHE WAS ANXIOUS ABOUT THE PAIN IN HER RIBS AND STATES ITS HARD TO BREATHE. VSS AND RR NONLABORED @4L HIFLOW NC, PULSE OX 99% PT VOICED THANKS AND STATES SHE IS FEELING BETTER BUT THE PAIN COMES AND GOES. ASSISTED PT WITH INCENTIVE SPIROMETER AND SHE DEMONSTRATED PROPER USE. PT IS COUGHING BUT STATES ITS HARD TO GET ANYTHING UP. PT STATES SHE IS FEELING MORE CALM AND BETTER NOW AND IS GOING TO TRY AND REST. CL IN REACH, BED IN LOWEST, SIDE RAILS X2. WILL CPOC.
--- NOTE | 2019-11-13 02:02 | NUR ---
PT STILL C/O SEVERE STABBING RIB PAIN DESPITE PRN PAIN MEDICATION. PAGED FOR PHOTO PRINT SPECIALIST SERVICE AND REC'D NEW ORDERS. TEACHING PROVIDED AND MEDICATIONS PROVIDED TO PT. PT VOICED THANKS. WILL SEE IF THIS HELPS. CL IN REACH, BED IN LOWEST, SIDE RAILS X2. WILL CTM.
[2019-11-13 04:14] LABS: HEMATOCRIT 38.5 % (36.0-48.0); HEMOGLOBIN 12.3 g/dL (12-16); LYMPHOCYTES 9.1 % (15-50); MCH 27.2 pg (26.0-34.0); MCHC 31.9 g/dL (31.0-37.0); MEAN PLATELET VOLUME 11.1 fL (7.4-10.4); NEUTROPHILS 82.4 % (40-80); PLATELET COUNT 105 10x3/uL (130-400); RBC 4.53 10x6/uL (4.00-5.40); WBC 8.9 10x3/uL (4.8-10.8)
[2019-11-13 04:36] LABS: ALBUMIN 2.5 g/dL (3.4-5.0); ANION GAP 10.7 mmol/L (8-16); BILIRUBIN - TOTAL 1.35 mg/dL (0.2-1.3); CALCIUM 8.6 mg/dL (8.5-10.1); CARBON DIOXIDE 24.3 mmol/L (21.0-32.0); CREATININE - SERUM 1.4 mg/dL (0.6-1.3); PROTEIN - SERUM 6.4 g/dL (6.4-8.2)
--- NOTE | 2019-11-13 04:57 | NUR ---
EMPTIED PTS TREVINO CATHETER AND PROVIDED TREVINO CARE PER POLICY. STAT LOCK STILL SECURED TO L.INNER THIGH. CHANGED PTS ABDOMEN DRSG WHERE HER PEG TUBE WAS REMOVED. CLEANSED WITH BETADINE SWAB AND THEN COVERED WITH GUAZE DRSG AND TEGADERM. SITE APPEARS TO BE HEALING WELL, EDGES APPROXIMATED AND SITE FREE OF DRAINAGE OR REDDNESS. REPOSITIONED PT IN BED FOR COMFORT. PT VOICED THANKS. PROVIDED PT WITH THICKENED CRANBERRY JUICE AND SHE IS DRINKING WITHOUT ANY COUGHING OR S/S OF ASPIRATION. PT DENIES ANY FURTHER NEEDS AT THIS TIME. CL IN REACH, BED IN LOWEST, SIDE RAILS X2. WILL CPOC.
--- NOTE | 2019-11-13 06:20 | NUR ---
PT SITTING UP IN BED WATCHING TV. PT HAS BEEN AWAKE ALL NIGHT AND STATES SHE JUST ISNT ABLE TO SLEEP. PT STATES SHE IS FEELING BETTER BUT SHES JUST NOT ABLE TO FALL ASLEEP. REPOSITIONED PT IN BED FOR COMFORT AND TO RELIEVE PRESSURE OFF HER BOTTOM. PT VOICED THANKS AND DENIES ANY CURRENT NEEDS AT THIS TIME. CL IN REACH, BED IN LOWEST, SIDE RAILS X2. WILL CPOC.
--- NOTE | 2019-11-13 07:15 | NUR ---
REPORT RECEIVED. ASSESSMENT COMPLETE PER FLOW SHEET. VSS. PT DENIES NEEDS. WILL CONTINUE TO MONITOR
--- NOTE | 2019-11-13 14:35 | NUR ---
RECEIVED PT FROM ICU. PT IS ORIENTED TO ROOM. NO S/S OF DISTRESS NOTED. WILL CTM.
--- NOTE | 2019-11-13 14:36 | NUR ---
PT PLACED IN CONTACT FOR RULE OUT OF MRSA. WILL CTM.
[2019-11-14] VITALS: BP 123/84
[2019-11-14 04:00] VITALS: BP 129/85
[2019-11-14 06:15] LABS: ALBUMIN 2.5 g/dL (3.4-5.0); BILIRUBIN - TOTAL 1.2 mg/dL (0.2-1.3); CARBON DIOXIDE 25.6 mmol/L (21.0-32.0); CREATININE - SERUM 1.2 mg/dL (0.6-1.3); PROTEIN - SERUM 6.1 g/dL (6.4-8.2)
[2019-11-14 07:38] LABS: ANION GAP 12.4 mmol/L (8-16)
[2019-11-14 08:08] LABS: HEMATOCRIT 38.2 % (36.0-48.0); HEMOGLOBIN 12.1 g/dL (12-16); LYMPHOCYTES 7.6 % (15-50); MCHC 31.7 g/dL (31.0-37.0); MCV 85.3 fL (80.0-100.0); MEAN PLATELET VOLUME 10.6 fL (7.4-10.4); NEUTROPHILS 85.8 % (40-80); PLATELET COUNT 99 10x3/uL (130-400); RBC 4.48 10x6/uL (4.00-5.40); RDW 19.3 % (11.5-14.5); WBC 10.9 10x3/uL (4.8-10.8)
--- NOTE | 2019-11-14 10:59 | NUR ---
Nutrition Follow-up: Diet: Regular Honey Thick Liquids with Puree PO intake: 90% x 1 meal and 100% x 1 snack recorded, none recorded recently Last BM: 11/13/19. Wt: 268# (11/13/19); Admit Wt: 240# (11/04/19) Meds noted: lasix, reglan, lactulose, k-dur Labs noted: Na 134(L), BUN 19(H), GFR 48(L), Glu 124(H), Alb 2.5(L) Recommend continue current diet as tolerated. Encourage PO intake. RD following.
[2019-11-14 11:17] VITALS: BP 134/82
[2019-11-14 11:32] LABS: PLATELET ESTIMATE DECREASED
--- NOTE | 2019-11-14 18:55 | NUR ---
REPORT RECEIVED, PT CARE ASSUMED. INTRODUCED SELF, WROTE NAME ON BOARD. PT LYING IN BED WITH EYES CLOSED, RR EVEN AND NONLABORED, NO S/S OF DISTRESS, AROUSES EASILY TO VOICE. DENIES ANY NEEDS AT THIS TIME. BED IN LOWEST, SRX2, CALL LIGHT WITHIN REACH. WILL CTM.
[2019-11-14 20:04] VITALS: BP 146/83
[2019-11-15 02:41] VITALS: BP 150/83
[2019-11-15 05:57] VITALS: BP 131/84
--- NOTE | 2019-11-15 07:00 | NUR ---
RECEIVED REPORT. ASSUMED CARE OF PATIENT. CALL LIGHT WITHIN REACH. RESTING WITH EYES CLOSED. RESP EVEN. BEDSIDE SHIFT REPORT COMPLETED. WHITE BOARD UPDATED. PATIENT REMAINS IN CONTROLLED AFIB ON TELEMETRY, 56-94. NO DISTRESS.
--- NOTE | 2019-11-15 09:15 | NUR ---
K+ 5.0. K+ SUPP (40) HELD AT THIS TIME.
--- NOTE | 2019-11-15 09:18 | NUR ---
HERE FOR AM ROUNDS, VERBAL ORDER RECEIVED FOR F/C REMOVAL AND FLUTTER VALVE.
--- NOTE | 2019-11-15 10:23 | NUR ---
PT AT BEDSIDE WORKING WITH PATIENT, ATTEMPTING TO GET PATIENT OOB.
--- NOTE | 2019-11-15 10:40 | NUR ---
FLUTTER VALVE PROVIDED. PT OOB TO CHAIR AT THIS TIME. NO DISTRESS. RT AT BEDSIDE FOR ANDREA TX.
[2019-11-15 11:00] VITALS: BP 134/85
--- NOTE | 2019-11-15 14:30 | NUR ---
MEDICATED FOR PAIN AT THIS TIME. NO DISTRESS.
[2019-11-15 15:00] VITALS: BP 139/91
--- NOTE | 2019-11-15 17:09 | NUR ---
ASSISTED WITH MEAL SETUP. NO DISTRESS. CALL LIGHT WITHIN REACH. NO DISTRESS.
--- NOTE | 2019-11-15 18:55 | NUR ---
REPORT RECEIVED, PT CARE ASSUMED. WROTE NAME ON BOARD. PT LYING IN BED, WATCHING TV, AAOX4. DENIES ANY NEEDS AT THIS TIME. BED IN LOWEST, SRX2, CALL LIGHT WITHIN REACH. WILL CTM.
[2019-11-15 20:00] VITALS: BP 138/89
[2019-11-16] VITALS: BP 127/80
[2019-11-16 04:00] VITALS: BP 123/66
[2019-11-16 05:23] LABS: BASOPHILS 0.1 % (0-2); EOSINOPHILS 1.4 % (0-7); IMMATURE GRANULOCYTES 0.4 % (0-5); LYMPHOCYTES 7.2 % (15-50); MCH 26.9 pg (26.0-34.0); MCHC 31.7 g/dL (31.0-37.0); MCV 84.7 fL (80.0-100.0); MEAN PLATELET VOLUME 10.3 fL (7.4-10.4); MONOCYTES 18.8 % (2-11); NEUTROPHILS 72.1 % (40-80); RBC 4.84 10x6/uL (4.00-5.40); WBC 13.8 10x3/uL (4.8-10.8)
[2019-11-16 05:24] LABS: PLATELET COUNT 120 10x3/uL (130-400)
[2019-11-16 05:48] LABS: ANION GAP 13.3 mmol/L (8-16); CALCIUM 9.5 mg/dL (8.5-10.1); CARBON DIOXIDE 23.8 mmol/L (21.0-32.0); PHOSPHOROUS 4.1 mg/dL (2.5-4.9); POTASSIUM - SERUM 5.1 mmol/L (3.5-5.1)
[2019-11-16 05:57] LABS: CREATININE - SERUM 2.2 mg/dL (0.6-1.3); MAGNESIUM - SERUM 1.9 mg/dL (1.8-2.4)
--- NOTE | 2019-11-16 07:00 | NUR ---
RECEIVED REPORT. ASSUMED CARE OF PATIENT. CALL LIGHT WITHIN REACH. RESP EVEN AND UNLABORED. IV INFUSING AT KVO. WHITE BOARD UPDATED, BEDSIDE SHIFT REPORT COMPLETED. PATIENT DENIES NEEDS AT THIS TIME. NO DISTRESS.
[2019-11-16 08:00] VITALS: BP 139/73
--- NOTE | 2019-11-16 10:11 | NUR ---
PATIENT OOB TO CHAIR AT BEDSIDE. NO DISTRESS.
[2019-11-16 11:00] VITALS: BP 148/86
--- NOTE | 2019-11-16 12:09 | NUR ---
MEDICATED FOR PAIN AT THIS TIME. NO DISTRESS. SITTING UP TO CHAIR AT BEDSIDE.
[2019-11-16 15:51] VITALS: BP 137/93
[2019-11-16 20:30] VITALS: BP 110/79
[2019-11-17 04:41] VITALS: BP 127/81
[2019-11-17 05:20] LABS: BASOPHILS 0.1 % (0-2); EOSINOPHILS 0.6 % (0-7); HEMATOCRIT 39.7 % (36.0-48.0); HEMOGLOBIN 12.6 g/dL (12-16); IMMATURE GRANULOCYTES 0.7 % (0-5); LYMPHOCYTES 5.1 % (15-50); MCH 26.9 pg (26.0-34.0); MCHC 31.7 g/dL (31.0-37.0); MCV 84.8 fL (80.0-100.0); MEAN PLATELET VOLUME 10.6 fL (7.4-10.4); MONOCYTES 16.7 % (2-11); NEUTROPHILS 76.8 % (40-80); PLATELET COUNT 126 10x3/uL (130-400); RBC 4.68 10x6/uL (4.00-5.40); RDW 19.1 % (11.5-14.5)
[2019-11-17 05:28] LABS: WBC 18.4 10x3/uL (4.8-10.8)
[2019-11-17 05:47] LABS: CALCIUM 9.5 mg/dL (8.5-10.1); CARBON DIOXIDE 24.4 mmol/L (21.0-32.0); PHOSPHOROUS 4.9 mg/dL (2.5-4.9); POTASSIUM - SERUM 5.4 mmol/L (3.5-5.1)
[2019-11-17 05:58] LABS: CREATININE - SERUM 3.6 mg/dL (0.6-1.3)
--- NOTE | 2019-11-17 07:43 | NUR ---
ULTRAM GIVEN FOR PAIN LEVEL OF 8/10. ALSO PROVIDED DRESSING CHANGE TO RT GROIN CVL USING STERILE TECHNIQUE. ALSO CHANGED DRESSING TO LT UPPER ABD WHERE PT HAD PREVIOUSLY HAS PEG TUBE THAT WAS REMOVED. PT DENIES ANY OTHER NEEDS AT THIS TIME. CALL LIGHT IN REACH, NAD NOTED, WILL CONTINUE TO MONITOR.
--- NOTE | 2019-11-17 07:45 | NUR ---
ULTRAM GIVEN FOR PAIN LEVEL OF 8/10. ALSO CLEANED PT UP FROM INCONT EPISODE. PT DENIES ANY OTHER NEEDS AT THIS TIME. CALL LIGHT IN REACH, BEDSIDE RAILS X2, NAD NOTED, WILL CONTINUE PLAN OF CARE.
[2019-11-17 08:55] VITALS: BP 136/69
--- NOTE | 2019-11-17 10:56 | NUR ---
PHYSICAL THERAPY TRIED TO GET PT UP TO CHAIR, AND PT STARTED HAVING PANIC ATTACK AND STATED THAT SHE COULD NOT SIT UP AT THIS TIME. PT BREATHING AT 28 BREATHS PER/MIN. CHECKED O2 AND PT O2 SAT IN THE 70S. PLACED PT ON BIPAP AT THIS TIME. AND RECHECKED O2 SAT AND CAME UP TO 93%. PT RESP CAME DOWN TO 24. CALL LIGHT IN REACH.
--- NOTE | 2019-11-17 13:39 | NUR ---
NUTRITION F/U CHART REVIEWED. TOLERATING HONEY THICK LIQUIDS WITH PUREED. PO INTAKE REMAINS POOR AT THIS TIME. WILL CONTINUE TO PROVIDE CURRENT DIET, MONITOR PO INTAKE. RD FOLLOWING
--- NOTE | 2019-11-17 14:50 | NUR ---
PT ASKING FOR SOMETHING STRONGER FOR PAIN, NOTIFIED BREN GUNTER APN.
--- NOTE | 2019-11-17 15:00 | MORECARE ---
CASE MANAGEMENT DISCHARGE SUMMARY PATIENT: ELIZABETH DENTON UNIT: [id number] ADM DATE: 11/04/19 AGE: 64 : 57 SEX: F ROOM/BED: D.8105 AUTHOR: AURELIA,DOC PHYSICIAN: REFERRING PHYSICIAN: BELINDA GUEVARA MD DATE OF SERVICE: 11/17/19 Discharge Plan Patient Name: ELIZABETH DENTON Facility: [facility]:[place] : 1955 Planned Disposition: Anticipated Discharge Date: Discharge Date: Expected LOS: Initial Reviewer: [email or web address] Initial Review Date: 11/04/2019 Generated: 11/17/19 4:00 pm Comments DCP- Discharge Planning Updated by [id number]: Amee Antonio on 11/17/19 1:[address] GEMA SPOKE WITH [facility] ABOUT POSSIBLE ACCEPTANCE INTO [facility], AND [facility]. KARLA STATES SHE IS WORKING ON THE [facility], AND HAVE NOT RECIEVED RESULTS OF YET. KARLA INQUIRED TO SEE IF PT WILL BE WILLING TO GO TO A SNF [place]. CM SPOKE WITH PATIENT AND ASKED HER PREFERENCE FOR SNF. PATIENT STATES SHE DOES NOT WANT TO GO TO A FPC. CM EDUCATED PT ABOUT HER EXHAUSTING ALL OF HER REHAB DAYS FOR IP REHAB. PT IN AGREEMENT FOR ANY SNF. CM FAXED CLINICAL UPDATES TO KARLA. AEME ANTONIO DCP- Discharge Planning Updated by [id number]: Adilene Corado on 11/07/19 4:[address] KARLA WITH [facility] STATED THAT THEY ARE RUNNING HER INFORMATION AND COULD POSSIBILITY BE ACCEPTED ON SUNDAY? SHE WILL ALSO NEED A [facility] (I WILL DO THAT ON SUNDAY) DCP- Discharge Planning Updated by [id number]: Adilene Corado on 11/07/19 9:[address] [facility] WITH INPATIENT REHAB CALLED AND STATED THAT THEY CAN NOT ACCEPT HER SHE WILL NEED SKILLED. I HAVE SENT THE REFERRAL TO [facility] FOR [facility] DCP- Discharge Planning Updated by [id number]: Adilene Corado on 11/07/19 8:[address] I SPOKE WITH THE PATIENT AND HER SISTER, PATIENT WOULD LIKE TO GO TO INPATIENT REHAB AT [facility] HER FIRST CHOICE THE SECOND CHOICE IS [facility], [place], AND [facility]. HER SISTER STATED THAT SHE CAN NOT COME BACK THERE. SHE WILL NEED [facility] FOR INPATIENT REHAB DCP- Discharge Planning Updated by [id number]: Ele Grimes on 11/04/19 4:[address] Patient Name: ELIZABETH DENTON Admission Status: ER Accout number: [id number] Admission Date: 11-04-2019 : 1955 Admission Diagnosis: Attending: BELINDA HITCHCOCK Current LOS: 1 Anticipated DC Date: Planned Disposition: Primary Insurance: [place] [employer] [place] Discharge Planning Comments: CM met with patient at bedside after explaining CM role and obtaining verbal consent. CM discussed availability / needs of home health, REHAB and medical equipment. PATIENT BROKE OUT IN TEARS, STATES NEICE STOLE AND SOLD EVERYTHING SHE OWNED, WAS LIVING WITH SISTER NOW CAN'T LIVE WITH HER. NEEDS HELP WITH PLACEMENT. SHE DOES NOT WANT A FPC. WILL ASSIST HER WITH PLACEMENT. NOT SURE IF SHE QUALIFIES FOR ASSISTED LIVING. WILL ASSIST IN PLACEMENT. WILL NEED OT AND PT CONSULTS, MAY NEED SNF AT TIME OF DC. WILL CONTINUE TO FOLLOW. Benefits Representative: Ele Sydney External Providers External Provider: [facility] Next Contact Date: Service Request Date: Service Type: Resolution: Reviewer: Comments: Coverage Notice Reviewer: [email or web address] Leonel Corado Notice Issued Date-Time: 11/07/2019 9:00 Notice Type: Patient Choice Letter Notice Delivered To: Patient Relationship to Patient: Telephone Services Sales Representative Name: Delivery Method: HAND - Hand Delivered Vilma Days: Prior Verbal Notification: Recipient Understood Notice: Yes Recipient Signature: Yes Med Rec Note Co-signed by Attending: Coverage Notice Comment: [facility] [place] Last DP export: 11/07/19 4:16 p Patient Name: ELIZABETH DENTON Page [phone] at 1500 All edits/amendments must be made on the electronic document DICTATION DATE: 11/17/19 1500 CASHIER SELF SERVICE GASOLINE: YORDY 11/17/19 1500 RPT#: [id number] DC DATE: STATUS: ADM IN [facility] [address] [place] [address] END OF REPORT
--- NOTE | 2019-11-17 15:31 | NUR ---
PROVIDED RESULTS OF ABGS TO BREN GUNTER APN, WILL ALSO NOTIFY DR. HASSAN.
[2019-11-17 16:20] VITALS: Ht 152.4 cm; Wt 122.1 kg
--- NOTE | 2019-11-17 16:41 | NUR ---
NORCO GIVEN FOR PAIN LEVEL OF 9/10 TO CHEST, PT DENIES ANY ABD PAIN. BLADDER SCAN DONE AND TOTAL VOLUME IN BLADDER WAS 112CC. PLACED PT BACK ON BIPAP. CALL LIGHT IN REACH, WILL CONTINUE TO MONITOR.
[2019-11-17 17:42] LABS: ERYTHROCYTE SEDIMENTATION RATE 11 mm/hr (0-30)
--- NOTE | 2019-11-17 17:50 | NUR ---
US OF KIDNEYS WAS ATTEMPTED. NO ANATOMICAL DETAIL COULD BE SEEN. PT WAS ROLLED LLD AND RLD WITH TWO NURSING PERSONNEL TO TRY AND GET BETTER WINDOWS BUT WAS NOT SUCCESSFUL. DR CASH WHARF ATTENDANT CALLED BACK. I EXPLAINED NON-DIAGNOSTIC AND WOULD NOT CHARGE PT. CANCELLED. GCATES,RDMS
[2019-11-17 20:42] VITALS: BP 115/71
--- NOTE | 2019-11-17 21:36 | NUR ---
HS MEDS GIVEN WITH FRESH ICE WATER.
--- NOTE | 2019-11-17 21:45 | NUR ---
16 persian curtis catheter placed with sterile technique. Immediate urine returned in catheter tubing. Stat lock placed on left inner thigh. Patient tolerated procedure well.
--- NOTE | 2019-11-17 21:45 | NUR ---
OT NOTE: PT COMPLETED FACE AND HAND HYGIENE WITH SETUP WHILE IN BED. PT COMPLETED POSITIONING IN BED WITH MIN A. 0-446 THANK YOU,JOSE MANUEL SANDOVAL
[2019-11-17 22:36] LABS: BILIRUBIN NEGATIVE (NEGATIVE); GLUCOSE NEGATIVE (NEGATIVE); KETONE NEGATIVE (NEGATIVE); NITRITE NEGATIVE (NEGATIVE); UROBILINOGEN NORMAL (NORMAL)
[2019-11-17 22:37] LABS: BACTERIA MODERATE /hpf (NEGATIVE); EPITHELIAL CELLS 0-5 /hpf (0-5); RED CELLS - URINE OCC /hpf (0-5); WHITE CELLS - URINE 0-5 /hpf (NEGATIVE)
[2019-11-17 22:39] LABS: CREATININE - URINE 183.3 mg/dL (30-125); PRO/CRE RATIO URINE 0.5 mg/g; PROTEIN - URINE 92.6 mg/dL (0.0-11.9)
[2019-11-18] VITALS (69 sets, daily range): BP systolic 94–132; BP diastolic 21–91
--- NOTE | 2019-11-18 01:30 | NUR ---
PT COMPLAINED OF PAIN OVER RIBS WHILE COUGHING. TAUGHT PT TO BRACE HER CHEST WITH A PILLOW TO EASE THE PAIN WHILE COUGHING. WILL CONTINUE TO MONITOR.
--- NOTE | 2019-11-18 01:37 | NUR ---
I have reviewed this patient and I concur with the Shift Assessment completed by the Licensed Practical Nurse today this shift.
--- NOTE | 2019-11-18 02:36 | NUR ---
I have reviewed this patient and I concur with the Shift Assessment completed by the Licensed Practical Nurse today this shift.
[2019-11-18 06:36] LABS: ANION GAP 13.2 mmol/L (8-16); CALCIUM 9.8 mg/dL (8.5-10.1); CARBON DIOXIDE 23.1 mmol/L (21.0-32.0); CREATININE - SERUM 4.2 mg/dL (0.6-1.3); MAGNESIUM - SERUM 1.9 mg/dL (1.8-2.4); PHOSPHOROUS 5.3 mg/dL (2.5-4.9)
[2019-11-18 06:38] LABS: BASOPHILS 0.1 % (0-2); EOSINOPHILS 0.1 % (0-7); HEMATOCRIT 36.6 % (36.0-48.0); HEMOGLOBIN 11.8 g/dL (12-16); IMMATURE GRANULOCYTES 0.5 % (0-5); MCH 27.3 pg (26.0-34.0); MCHC 32.2 g/dL (31.0-37.0); MCV 84.5 fL (80.0-100.0); MEAN PLATELET VOLUME 10.8 fL (7.4-10.4); MONOCYTES 14.4 % (2-11); NEUTROPHILS 79.9 % (40-80); PLATELET COUNT 123 10x3/uL (130-400); RBC 4.33 10x6/uL (4.00-5.40); WBC 19.6 10x3/uL (4.8-10.8)
[2019-11-18 06:39] LABS: POTASSIUM - SERUM 6.3 mmol/L (3.5-5.1)
--- NOTE | 2019-11-18 06:41 | NUR ---
PAGE OUT TO ANGELA LYNN APN, TO NOTIFY OF ELEVATED POTASSIUM.
--- NOTE | 2019-11-18 06:49 | NUR ---
SPOKE WITH ANGELA LYNN, INFORMED HER OF PTS POTASSIUM LEVEL OF 6.3. ORDERS GIVEN TO NOTIFY RENAL.
--- NOTE | 2019-11-18 07:01 | NUR ---
RECIEVED ORDERS FROM DR CASH FOR ELEVATED, POTASSIUM. ANOTHER NURSE CAME OUT OF PTS ROOM AND STATED THAT PT WAS UNRESPONSIVE. HE 32 ON TELEMETRY, NATASHA LOZANO CALLED.
--- NOTE | 2019-11-18 07:05 | NUR ---
NOTIFIED PTS SISTER AMBIKA.
--- NOTE | 2019-11-18 07:14 | NUR ---
PT TRANSFERRED TO ICU.
--- NOTE | 2019-11-18 07:30 | NUR ---
RECIEVED CODE FROM FLOOR. PT HAS A WIDE QRS. ASSESSMENT PER FLOWSHEET.
--- NOTE | 2019-11-18 08:37 | NUR ---
PAGED ANESTHESIA. CALLED BACK. IN GI LAB. STATED TO CALL [phone]. CALLED 2333 DR KC ANSWERED. NO ONE FROM ANESTHESIA PRESENT. DR KC SAID HE WOULD FIND SOMEONE TO COME OVER TO HELP.
--- NOTE | 2019-11-18 11:00 | NUR ---
PT RESTING IN BED. REASSESSMETN COMPLETED. NO SIGNS OF DISTRES NOTED. WILL CONTINUE TO MONITOR
[2019-11-18 13:19] LABS: ANION GAP 12.7 mmol/L (8-16); CALCIUM 9.4 mg/dL (8.5-10.1); CARBON DIOXIDE 22.6 mmol/L (21.0-32.0); CREATININE - SERUM 4.2 mg/dL (0.6-1.3)
[2019-11-18 13:22] LABS: POTASSIUM - SERUM 6.3 mmol/L (3.5-5.1)
--- NOTE | 2019-11-18 13:31 | NUR ---
paged dr meek. awaiting call back.
[2019-11-18 18:12] LABS: ANION GAP 10.6 mmol/L (8-16); CALCIUM 9.1 mg/dL (8.5-10.1); CARBON DIOXIDE 23.7 mmol/L (21.0-32.0)
[2019-11-18 18:16] LABS: POTASSIUM - SERUM 6.3 mmol/L (3.5-5.1)
--- NOTE | 2019-11-18 18:19 | NUR ---
PAGED RENAL GRANULIZING MACHINE OPERATOR. AWAITING CALL BACK
--- NOTE | 2019-11-18 19:00 | NUR ---
SHIFT ASSESSMENT COMPLETED. PT CARE ASSUMED,MONITORS ON AND WORKING, WILL CONTINUE TO OBSERVE.
[2019-11-18 20:30] LABS: ANION GAP 12.7 mmol/L (8-16); CALCIUM 9.2 mg/dL (8.5-10.1); CARBON DIOXIDE 22.7 mmol/L (21.0-32.0); POTASSIUM - SERUM 5.4 mmol/L (3.5-5.1)
[2019-11-19] VITALS (49 sets, daily range): BP systolic 82–129; BP diastolic 23–107
--- NOTE | 2019-11-19 03:00 | NUR ---
RADIOLOGY CALLED ON PTS CXR STATED PT HAS PNEUMOTHORAX. PAGED SURGERY, WAITING CALL BACK.
--- NOTE | 2019-11-19 03:29 | NUR ---
SPOKE WITH DR MALDONADO, UPDATED ON PT STATUS AND CXR. MD AWARE PNEUMO IS PRESENT, PT VITALS STABLE, PT SEDATED ON VENT, MD WILL BE BY IN MORNING. WILL CONTINUE TO OBSERVE.
--- NOTE | 2019-11-19 03:30 | NUR ---
PAGED CARDIOLOGY ABOUT EKG AND ELEVATED ST ELEVATION. WAITING PHONE CALL BACK.
--- NOTE | 2019-11-19 04:30 | NUR ---
WAITING ON SURGEON TO COME IN AND PLACE CHEST TUBE FOR PNEUMO.
--- NOTE | 2019-11-19 05:00 | NUR ---
CT PLACED. PT O2 REMAINS IN THE 80'S DESPITE BEING ON 100% O2. AWARE.
[2019-11-19 05:59] LABS: INR 1.49 (0.85-1.17); PROTIME 17.9 SECONDS (11.6-15.0)
[2019-11-19 06:17] LABS: ALBUMIN 1.9 g/dL (3.4-5.0); ANION GAP 11.7 mmol/L (8-16); BILIRUBIN - DIRECT 2.27 mg/dL (0.00-0.30); BILIRUBIN - TOTAL 4.27 mg/dL (0.2-1.3); CALCIUM 9.3 mg/dL (8.5-10.1); CARBON DIOXIDE 23.1 mmol/L (21.0-32.0); CREATININE - SERUM 3.8 mg/dL (0.6-1.3); MAGNESIUM - SERUM 1.7 mg/dL (1.8-2.4); PHOSPHOROUS 4.6 mg/dL (2.5-4.9); POTASSIUM - SERUM 5.8 mmol/L (3.5-5.1); PROTEIN - SERUM 5.7 g/dL (6.4-8.2)
[2019-11-19 06:21] LABS: BASOPHILS 0.2 % (0-2); EOSINOPHILS 0 % (0-7); HEMATOCRIT 34.3 % (36.0-48.0); HEMOGLOBIN 11.2 g/dL (12-16); IMMATURE GRANULOCYTES 0.8 % (0-5); LYMPHOCYTES 1.4 % (15-50); MCH 27.7 pg (26.0-34.0); MCHC 32.7 g/dL (31.0-37.0); MCV 84.9 fL (80.0-100.0); MEAN PLATELET VOLUME 9.7 fL (7.4-10.4); MONOCYTES 1.3 % (2-11); NEUTROPHILS 96.3 % (40-80); PLATELET COUNT 66 10x3/uL (130-400); RBC 4.04 10x6/uL (4.00-5.40); RDW 19.7 % (11.5-14.5); WBC 18.8 10x3/uL (4.8-10.8)
[2019-11-19 06:26] LABS: TROPONIN-I 0.072 ng/mL (0.000-0.060)
--- NOTE | 2019-11-19 07:00 | NUR ---
Report received from the off going rn. See assessment and patient's flowsheet. Patient is sedated on the ventilator. Patient on Levophed. See IV flowsheet for drips. NG tube noted to low intermittent suction. Vital signs stable at this time. Call light in reach we will continue plan of care
--- NOTE | 2019-11-19 07:00 | NUR ---
SPOKE WITH CARDIO ABOUT PTS MOST RECENT EKG AND CHANGE OF STATUS OVERNIGHT, ERICK ALBRIGHT AWARE.
--- NOTE | 2019-11-19 07:00 | NUR ---
REPORT RECEVIED FROM THE OFF GOINGN RN. SEE ASSESSMENT IN THE PTS FLOW SHEET. PT SPEAKS VERY LITTLE [place]. HOUSE SUPIVISOR NOTIFIED FOR TRANSLATION PHONE. PT ABLE TO EXPRESS HIS NEEDS. DENIES "DOLOR" VSS AT THIS TIME. CALL LIGHT IN REACH. WILL CONT POC.
--- NOTE | 2019-11-19 08:00 | NUR ---
PT INC OF BOWEL. WHENEVER PT WAS BEING CLEANED, PT DECEBERATE POSTURED AND STARTED CONVULSING.ANOTHER NURSE STAYED WITH THE PATIENT WHILE I GOT ATIVAN AND ADMINISTERED IT. SEE JUN. PT HAD CONVULSIONS FOR ABOUT 1 MINUTES AND ENTERED A POST-ICTAL STAGE. PT AWAKE AND ALERT BUT VERY SLEEPY. PT FOLLOWING COMMANDS SUCH SQUEEZING HAND AND WIGGLEING TOES. DR CHÁVEZ NOTIFIED. GIVE 1 G DILATIN NOW AND STAT HEAD CT.
[2019-11-19 08:47] LABS: PLATELET ESTIMATE DECREASED
--- NOTE | 2019-11-19 09:00 | NUR ---
Patient reposition for comfort. Vital signs stable. We will continue plan of care.
--- NOTE | 2019-11-19 11:00 | NUR ---
Reassessment completed. Vital signs stable at this time. Reposition for comfort. We will continue plan of care.
--- NOTE | 2019-11-19 13:02 | NUR ---
Nutrition follow-up: Pt intubated, sedated; levophed NPO NGT->LIWS Labs reviewed Wt: 269# CT placed Will need nutrition support started within 24-48 hours if pt remains intubated. RDN following.
--- NOTE | 2019-11-19 13:07 | NUR ---
DR CASH ON THE PHONE WITH AMBIKA, THE PT'S SISTER. DR CASH TALKING ABOUT THE PATEINTS CONDITION. AMBIKA IS THE PATIENTS NEXT OF KIN. THEY DECIDED TO MAKE THE PATIENT A DNR AND AGREE WITH NO DIALYSIS. THEY ARE GOING TO WAIT A COUPLE OF DAY. TALKING ABOUT COMFORT CARE IN THE NEAR FUTURE. WILL CONT POC.
--- NOTE | 2019-11-19 15:50 | NUR ---
Patient heart rates are slowing down to 30 with interventricular rate.Family member notified of patient's condition.Patient remains DNR. Patient has no heart tones without pulse without O2 saturation.Patient has no blood pressure.Dr. Tay Armstrong and Dr. Dee notified.Dr. Armstrong at the patient's bedside at 1602 to pronounced the patient . Brake Lining Finisher notified.sue were notified. Family notified.Patient sister alisson rodriguez called and notified and patient body will go to [facility] [place] [phone].
--- NOTE | 2019-11-19 18:08 | NUR ---
PC TO AMBIKA STONER, PATIENTS MOTHER, PERSONNEL BELONGINGS ARE HERE IN ICU AT PRESS BREAKER'S DESK, STATED THAT SHE WILL HAVE SOMEONE PICK THEM UP ON TOMORROW,
[2019-11-20 13:11] LABS: SPE - A/G RATIO 0.8 (0.7-1.7); SPE - ALBUMIN 2.6 g/dL (2.9-4.4); SPE - ALPHA-1 GLOBULIN 0.3 g/dL (0.0-0.4); SPE - ALPHA-2 GLOBULIN 0.5 g/dL (0.4-1.0); SPE - BETA GLOBULIN 0.9 g/dL (0.7-1.3); SPE - GAMMA GLOBULIN 1.7 g/dL (0.4-1.8); SPE - M-SPIKE Not Observed g/dL (Not Observed)
[2019-11-20 13:11] LABS: UPE RAND - ALBUMIN 48.5 % (()); UPE RAND - ALPHA 1 GLOBULIN 2.1 % (()); UPE RAND - ALPHA 2 GLOBULIN 8.9 % (()); UPE RAND - BETA GLOBULIN 20.9 % (()); UPE RAND - GAMMA GLOBULIN 19.6 % (())
--- NOTE | 2019-11-20 13:27 | OP ---
PATIENT NAME: ELIZABETH DENTON MEDICAL RECORD: [id number] :57 LOCATION:[facility] D.2315 ADMISSION DATE:11/04/19 SURGEON: CUCO KC MD DATE OF OPERATION: 11/19/2019 PREOPERATIVE DIAGNOSIS: Right pneumothorax. POSTOPERATIVE DIAGNOSIS: Right pneumothorax. PROCEDURE: Right 24-Danish chest tube placement. SURGEON: Cuco Kc MD REPORT OF PROCEDURE: The patient's right chest was prepped and draped in sterile fashion. A skin incision was made on the inferior aspect of the right lateral chest. Using blunt dissection, I was able to come to about the 7th or eighth intercostal space. I used blunt dissection to push through the muscles just over the 8th rib and pushed into the chest cavity. I can feel around in the chest cavity and there was a large lou of air after removal of my finger. The patient's lung appeared to be intact and I was then able to place a 24-Danish chest tube. This chest tube rest in good position and was sutured into place with a 2-0 Prolene. This was attached to a Pleur-Evac and immediately there was noted to be a lou of bubbles into the water. The Pleur-Evac was then placed to suction. COMPLICATIONS: None. CONDITION: Fair. ANESTHESIA: General endotracheal. BLOOD LOSS: Minimal. Procedure done in the ICU at the bedside. TRANSINT:[id number] Voice Confirmation ID: [id number] DOCUMENT ID: [id number] CUCO KC MD at 1327 CC: [id number] DICTATION DATE: 11/19/19 0934 RESIDENTIAL SALES REPRESENTATIVE: 11/19/19 1409 DIS IN 11/19/19 [facility] [address] [place] [address]
--- NOTE | 2019-11-21 08:51 | NUR ---
Per CMS protocol, restraint report logged into data base.
--- NOTE | 2019-11-21 11:35 | MORECARE ---
CASE MANAGEMENT DISCHARGE SUMMARY PATIENT: ELIZABETH DENTON UNIT: [id number] ADM DATE: 11/04/19 AGE: 64 : 57 SEX: F ROOM/BED: D.2315 AUTHOR: AURELIA,DOC PHYSICIAN: REFERRING PHYSICIAN: BELINDA GUEVARA MD DATE OF SERVICE: 11/21/19 Discharge Plan Patient Name: ELIZABETH DENTON Facility: [facility]:[place] : 1955 Planned Disposition: Anticipated Discharge Date: Discharge Date: 11/19/2019 Expected LOS: Initial Reviewer: [email or web address] Initial Review Date: 11/04/2019 Generated: 11/21/19 12:34 pm Comments DCP- Discharge Planning Updated by [email or web address]: Amee Antonio on 11/17/19 1:[address] GEMA SPOKE WITH [facility] ABOUT POSSIBLE ACCEPTANCE INTO [facility] AND [facility]. KARLA STATES SHE IS WORKING ON THE [facility], AND HAVE NOT RECIEVED RESULTS OF YET. KARLA INQUIRED TO SEE IF PT WILL BE WILLING TO GO TO A SNF [facility]. CM SPOKE WITH PATIENT AND ASKED HER PREFERENCE FOR SNF. PATIENT STATES SHE DOES NOT WANT TO GO TO A RESIDENTIAL. CM EDUCATED PT ABOUT HER EXHAUSTING ALL OF HER REHAB DAYS FOR IP REHAB. PT IN AGREEMENT FOR ANY SNF. CM FAXED CLINICAL UPDATES TO KARLA. AMEE ANTONIO DCP- Discharge Planning Updated by [email or web address]: Adilene Corado on 11/07/19 4:[address] KARLA WITH [facility] STATED THAT THEY ARE RUNNING HER INFORMATION AND COULD POSSIBILITY BE ACCEPTED ON SUNDAY? SHE WILL ALSO NEED A [facility] (I WILL DO THAT ON SUNDAY) DCP- Discharge Planning Updated by [email or web address]: Adilene Corado on 11/07/19 9:[address] [facility] WITH [facility]IENT [facility] CALLED AND STATED THAT THEY CAN NOT ACCEPT HER SHE WILL NEED SKILLED. I HAVE SENT THE REFERRAL TO K[facility]LA FOR [facility] DCP- Discharge Planning Updated by [email or web address]: Adilene Corado on 11/07/19 8:[address] I SPOKE WITH THE PATIENT AND HER SISTER, PATIENT WOULD LIKE TO GO TO INPATIENT REHAB AT [facility] HER FIRST CHOICE THE SECOND CHOICE IS [facility], [facility], AND [facility]. HER SISTER STATED THAT SHE CAN NOT COME BACK THERE. SHE WILL NEED [facility] FOR INPATIENT REHAB DCP- Discharge Planning Updated by [email or web address]: Ele Grimes on 11/04/19 4:[address] Patient Name: ELIZABETH DENTON Admission Status: ER Accout number: [id number] Admission Date: 11-04-2019 : 1955 Admission Diagnosis: Attending: BELINDA HITCHCOCK Current LOS: 1 Anticipated DC Date: Planned Disposition: Primary [place]: [place] [employer] [place] Discharge Planning Comments: CM met with patient at bedside after explaining CM role and obtaining verbal consent. CM discussed availability / needs of home health, REHAB and medical equipment. PATIENT BROKE OUT IN TEARS, STATES NEICE STOLE AND SOLD EVERYTHING SHE OWNED, WAS LIVING WITH SISTER NOW CAN'T LIVE WITH HER. NEEDS HELP WITH PLACEMENT. SHE DOES NOT WANT A RESIDENTIAL. WILL ASSIST HER WITH PLACEMENT. NOT SURE IF SHE QUALIFIES FOR ASSISTED LIVING. WILL ASSIST IN PLACEMENT. WILL NEED OT AND PT CONSULTS, MAY NEED SNF AT TIME OF DC. WILL CONTINUE TO FOLLOW. Cold Roll Catcher: Ele Grimes Coverage Notice Reviewer: [email or web address] Leonel Corado Notice Issued Date-Time: 11/07/2019 9:00 Notice Type: Patient Choice Letter Notice Delivered To: Patient Relationship to Patient: Set Up / Operator Name: Delivery Method: HAND - Hand Delivered Vilma Days: Prior Verbal Notification: Recipient Understood Notice: Yes Recipient Signature: Yes Med Rec Note Co-signed by Attending: Coverage Notice Comment: [facility] [place] Last DP export: 11/17/19 2:01 p Patient Name: ELIZABETH DENTON Page [id number] at 1135 All edits/amendments must be made on the electronic document DICTATION DATE: 11/21/19 1134 TELEGRAPH OFFICE MANAGER: YORDY 11/21/19 1134 RPT#: [id number] DC DATE:11/19/19 STATUS: DIS IN [facility] [address] [facility] [place] [address] END OF REPORT
== END 2019-11-19 21:53 | DRG 689 ==
LOC: D.ER 09:39 → D.MS 14:11 → OBSVTIME 14:11 → D.ICU 11-04 16:33 → D.M2 11-04 16:33 → D.MS 11-04 16:33 → D.ICU 11-09 20:25 → D.M2 11-13 14:24 → D.ICU 11-18 07:25
PROVIDERS: Emergency Medicine; Family Medicine; Internal Medicine Nephrology; Internal Medicine Pulmonary Disease; ADMIT Family Medicine Adult Medicine; ATTEND Family Medicine Adult Medicine
PROC: 0DP6XUZ Removal of Feeding Device from Stomach, External Approach (ICD-10-PCS; principal; 2019-11-04)
PROC: 5A1945Z Respiratory Ventilation, 24-96 Consecutive Hours (ICD-10-PCS; 2019-11-09)
PROC: 0BH17EZ Insertion of Endotracheal Airway into Trachea, Via Natural or Artificial Opening (ICD-10-PCS; 2019-11-09)
PROC: 5A1945Z Respiratory Ventilation, 24-96 Consecutive Hours (ICD-10-PCS; 2019-11-18)
PROC: 0BH17EZ Insertion of Endotracheal Airway into Trachea, Via Natural or Artificial Opening (ICD-10-PCS; 2019-11-18)
PROC: 0B21XEZ Change Endotracheal Airway in Trachea, External Approach (ICD-10-PCS; 2019-11-19)
PROC: 0W9900Z Drainage of Right Pleural Cavity with Drainage Device, Open Approach (ICD-10-PCS; 2019-11-19)
DX: N39.0 Urinary tract infection, site not specified (principal); J96.00 Acute respiratory failure, unspecified whether with hypoxia or hypercapnia; G92 Toxic encephalopathy; E87.1 Hypo-osmolality and hyponatremia; Z68.42 Body mass index [BMI] 45.0-49.9, adult; N17.9 Acute kidney failure, unspecified; J93.9 Pneumothorax, unspecified; I46.9 Cardiac arrest, cause unspecified; I48.91 Unspecified atrial fibrillation; Z66 Do not resuscitate; E86.0 Dehydration; I11.0 Hypertensive heart disease with heart failure; I50.9 Heart failure, unspecified; J43.9 Emphysema, unspecified; E66.01 Morbid (severe) obesity due to excess calories; K21.9 Gastro-esophageal reflux disease without esophagitis; K70.30 Alcoholic cirrhosis of liver without ascites; T85.848A Pain due to other internal prosthetic devices, implants and grafts, initial encounter; Y84.9 Medical procedure, unspecified as the cause of abnormal reaction of the patient, or of later complication, without mention of misadventure at the time of the procedure; R00.0 Tachycardia, unspecified; G40.909 Epilepsy, unspecified, not intractable, without status epilepticus; D69.6 Thrombocytopenia, unspecified; R11.0 Nausea